=== PATIENT | female | born 1965 | race Caucasian/White ===

== ENCOUNTER → 2016-05-20 | Outpatient (REF) | payer OTHER | LOC: M LAB REF 14:53 | PROVIDERS: ATTEND Physician Assistant Medical | DX: N39.0 Urinary tract infection, site not specified (principal) ==

== ENCOUNTER → 2016-06-03 | Outpatient (REF) | payer OTHER | LOC: M LAB REF 16:59 | PROVIDERS: ATTEND Physician Assistant | DX: N39.0 Urinary tract infection, site not specified (principal) ==

== ENCOUNTER 2018-06-12 05:24 | Inpatient (IN) | payer OTHER ==
[~2018-06-12] VITALS: Ht 170.2 cm; Wt 181.7 kg
[2018-06-12] MEDS ORDERED: methylPREDNISolone INJ 125 MG/2 ML VIAL (J2930) IV ONE (06:45)
[2018-06-12] MEDS ORDERED: IPRATROPIUM 0.5MG/ALBUTEROL 2.5MG INH SOL UD 3ML (DUONEB)(J7620) NEB PRN ×2 (06:45→09:00)
[2018-06-12 07:05] LABS: BASO % 0.7 % (0.0-1.0); EOS % 0.2 % (0.0-3.0); HEMATOCRIT 56.9 % (36.0-47.0); LYMPH # 0.5 10^3/uL (1.5-4.5); LYMPH % 8.9 % (24.0-44.0); MEAN CORPUSCULAR HEMOGLOBIN 23.9 pg (27.0-33.0); MEAN CORPUSCULAR HGB CONC 28.1 g/dl (32.0-36.5); MEAN CORPUSCULAR VOLUME 84.9 fl (80.0-96.0); MONO # 0.3 10^3/uL (0.0-0.8); MONO % 4.8 % (0.0-5.0); NEUTROPHILS # 4.8 10^3/uL (1.8-7.7); NEUTROPHILS % 84.9 % (36.0-66.0); PLATELET COUNT, AUTOMATED 108 10^3/uL (150-450); WHITE BLOOD COUNT 5.6 10^3/uL (4.0-10.0)
[2018-06-12 07:13] LABS: ABG BASE EXCESS -2.2 (-2.0-2.0); ABG HCO3 25.3 MEQ/L (22.0-26.0); ABG O2 SATURATION 90.6 % (95.0-99.0); ABG PARTIAL PRESSURE CO2 53.5 mmHg (35.0-45.0); ABG PARTIAL PRESSURE O2 60.9 mmHg (75.0-100.0); ABG STANDARD HCO3 22.4 MEQ/L (22.0-26.0); ABG pH (ARTERIAL) 7.293 UNITS (7.350-7.450)
[2018-06-12 07:27] LABS: ALBUMIN 2.9 GM/DL (3.2-5.2); ALT/SGPT 11 U/L (12-78); BILIRUBIN,DIRECT 0.1 MG/DL (0.0-0.2); BILIRUBIN,TOTAL 0.4 MG/DL (0.2-1.0); BLOOD UREA NITROGEN 11 MG/DL (7-18); CALCIUM LEVEL 9.3 MG/DL (8.5-10.1); CARBON DIOXIDE LEVEL 26 MEQ/L (21-32); CHLORIDE LEVEL 110 MEQ/L (98-107); CPK CREATINE PHOSPHOKINASE 28 U/L (26-192); CREATININE FOR GFR 0.68 MG/DL (0.55-1.30); GLOMERULAR FILTRATION RATE > 60.0 (>51); GLUCOSE, FASTING 147 MG/DL (70-100); NT-PRO BNP 404 PG/ML (<125); POTASSIUM SERUM 4.4 MEQ/L (3.5-5.1); SODIUM LEVEL 139 MEQ/L (136-145); TOTAL PROTEIN 6.8 GM/DL (6.4-8.2); TROPONIN I < 0.02 NG/ML (< 0.10)
--- NOTE | 2018-06-12 07:40 | REP ---
Clinical: Cough and dyspnea . Comparison: 06/01/2006 . Findings: Cardiomegaly with perihilar opacities and increased interstitial markings suggest chronic changes as well as superimposed pulmonary venous congestion versus multifocal infiltrates. No definite effusion. No pneumothorax. Skeletal structures intact. Impression: Cardiomegaly. Differential diagnosis includes pulmonary edema as well as multifocal infiltrates primarily involving the right perihilar and lower lobe regions. Electronically Signed by Mark Anthony Craig MD 06/12/2018 07:32 A
[2018-06-12 07:57] LABS: INFLUENZA A AMPLIFICATION NEGATIVE (NEGATIVE); INFLUENZA B AMPLIFICATION NEGATIVE (NEGATIVE)
[2018-06-12] MEDS ORDERED: cefTRIAXone SOD 1 GM in D5W MINI-BAG PLUS 50 ML IV ONE (08:00)
[2018-06-12] MEDS ORDERED: AZITHROMYCIN INJ 500 MG, VIAL MATE ADAPTER 1 EACH in D5W 250 ML IV ONE (08:00)
[2018-06-12] MEDS ORDERED: FUROSEMIDE 20 MG/2 ML VIAL (J1940) IV ONE (08:00)
[2018-06-12] MEDS ORDERED: ISOVUE-370 76% 100ML VIAL (Q9967) As Ordered ONE (08:05)
[2018-06-12] MEDS ORDERED: GLUCOSE 4 GM CHEW TABLET PO PRN (09:00)
[2018-06-12] MEDS ORDERED: ONDANSETRON 4MG/2ML VIAL (J2405) IV PRN (09:00)
[2018-06-12] MEDS ORDERED: GLUCAGON FOR INJ 1 MG VIAL (J1610) SC PRN (09:00)
[2018-06-12] MEDS ORDERED: DEXTROSE 50% 50 ML SYRINGE IV PRN (09:00)
--- NOTE | 2018-06-12 09:02 | REP ---
CT ANGIOGRAM CHEST: TECHNIQUE: Axial contrast enhanced images from the thoracic inlet to the upper abdomen using 100 mL Isovue 370 intravenous contrast material with multiplanar reformations. There is streak artifact due to patient body habitus and motion. No definite pulmonary embolism is seen. There is no thoracic aortic aneurysm or dissection. There is mediastinal and hilar adenopathy. Right paratracheal adenopathy is seen with short axis dimension up to 2 cm. There is adenopathy in the AP window with lymph nodes measuring up to 1.5 cm. Right precarinal adenopathy measures 2.3 cm in short axis. An enlarged right infrahilar lymph node measures 2.5 x 3.9 cm. The left infrahilar lymph nodes has a short axis dimension of 1.9 cm. There is mild pericardial effusion and a small right pleural effusion. The heart is mildly enlarged. There are diffuse parenchymal infiltrates which are heavier in the lung bases bilaterally. In the visualized portions of the upper abdomen note is made of a 1.5 cm calculus in the visualized upper left renal collecting system. There are degenerative changes of the spine. IMPRESSION: CHF and pulmonary edema pattern. Mild cardiomegaly. Small pericardial effusion and small right pleural effusion. There is mediastinal and hilar adenopathy. Diffuse bilateral parenchymal infiltrates are heavier in the lung bases bilaterally. No definite pulmonary embolism. Electronically Signed by Jose Pressley MD 06/12/2018 12:55 P
--- NOTE | 2018-06-12 09:29 | ECGEPIP ---
Stationary ECG Study [facility] - ED Test Date: 2018-06-12 Pat Name: JUAN C AUGUST Department: Room: - Gender: F Account Service Representative: : 1965 Requested By: BREANN Jessica Order Number: [id number] Reading MD: Dalia Coy Measurements Intervals [place] Rate: 105 P: 61 MI: 179 QRS: 127 QRSD: 93 T: 34 QT: 316 QTc: 419 Interpretive Statements SINUS TACHYCARDIA PATTERN CONSISTENT WITH PULMONARY DISEASE POSSIBLE RIGHT VENTRICULAR HYPERTROPHY RAD DELAYED R WAVE PROGRESSION NONSPECIFIC ST T WAVE PROGRESSION NO OLD ECG FOR COMPARISON Electronically Signed On 06-12-2018 9:29:07 EDT by Dalia Coy
[2018-06-12] MEDS: IPRATROPIUM 0.5MG/ALBUTEROL 2.5MG INH SOL UD 3ML (DUONEB)(J7620) NEB SCH ×5 (10:54→23:21)
[2018-06-12] MEDS: methylPREDNISolone INJ 125 MG/2 ML VIAL (J2930) IV SCH ×2 (13:34→21:19)
[2018-06-12] MEDS: ENOXAPARIN 40 MG/0.4 ML SYRINGE (J1650) SC SCH (13:35)
[2018-06-12] MEDS: HumaLOG INSULIN (NovoLOG) PER UNIT SC SCH ×3 (13:36→21:00)
[2018-06-12 15:55] LABS: CHOLESTEROL LEVEL 145 MG/DL (<200); HDL CHOLESTEROL 25 MG/DL (>40); LDL CHOLESTEROL 103 MG/DL (<100); NON-HDL-C 120 MG/DL; TRIGLYCERIDES LEVEL 84 MG/DL (<150)
[2018-06-12 16:42] LABS: HEMOGLOBIN A1c 6.1 %
[2018-06-12] MEDS ORDERED: FUROSEMIDE 40 MG/4 ML VIAL (J1940) IV ONE (17:30)
--- NOTE | 2018-06-12 17:35 | HPEPDOC ---
General Date of Admission June 12, 2018 at 08:59 Chief Complaint The patient is a 52-year-old female admitted with a reason for visit of Pneumoni a. History of Present Illness 52-year-old female with no significant past medical history due to not following with a physician for many years presents to the ER with a chief complaint of worsening shortness of breath over the last 1 week. The patient states that she has been having fevers, runny nose, muscle aches, and cough productive of yellowish sputum. The patient does endorse that she has smoked a pack and half of tobacco daily for the last 20+ years. She also notes that she has been having lower extremity edema which has also been getting worse for several months. She states that the legs are more swollen after she drinks an excessive amount of diet Coke. She denies any complaints of chest pain, palpitations, abdominal pain, or any nausea/vomiting/diarrhea. In the ER, chest x-ray and CT angiogram of the chest was consistent with bilateral pneumonia and decompensated congestive heart failure. The patient will be admitted to the hospitalist service for evaluation and management. Home Medications No Active Prescriptions or Reported Meds Allergies Coded Allergies: No Known Allergies (Unverified , 06/12/18) Past Medical History Medical History As noted in HPI. Social History * Smoker: greater than 1 pack/day (for 20+ years), cigarettes Alcohol: Denies Drugs: denies A-FIB/CHADSVASC A-FIB History Current/History of A-Fib/PAF?: No Review of Systems Other systems 10 point review of systems negative unless otherwise specified in HPI. Physical Examination General Exam: Positive: Alert, Cooperative, No Acute Distress, Other (morbidly obese) ENT Exam: Positive: Atraumatic, Mucous membr. moist/pink Chest Exam: Positive: Rales (faint bibasilar crackles noted), Wheezing (expiratory wheezing noted on auscultation), Diminished Heart Exam: Positive: Rate Normal, Normal S1, Normal S2 Abdomen Exam: Positive: Soft; Negative: Tenderness Extremity Exam: Positive: Swelling (2+ pitting edema noted in the lower extremities bilaterally); Negative: Tenderness Psych Exam: Positive: Oriented x 3 Vital Signs Vital Signs Date Time Temp Pulse Resp B/P (MAP) Pulse Ox O2 Delivery O2 Flow Rate FiO2 06/12/18 14:50 97.9 144/76 (98) 06/12/18 14:30 82 16 88 Nasal Cannula 5.0 Laboratory Data Labs 24H Laboratory Tests 2 06/12/18 06:08: Immature Granulocyte % (Auto) 0.5, White Blood Count 5.6, Red Blood Count 6.70H, Hemoglobin 16.0H, Hematocrit 56.9H, Mean Corpuscular Volume 84.9, Mean Corpuscular Hemoglobin 23.9L, Mean Corpuscular Hemoglobin Concent 28.1L, Red Cell Distribution Width 19.7H, Platelet Count 108L, Neutrophils (%) (Auto) 84.9H, Lymphocytes (%) (Auto) 8.9L, Monocytes (%) (Auto) 4.8, Eosinophils (%) (Auto) 0.2, Basophils (%) (Auto) 0.7, Neutrophils # (Auto) 4.8, Lymphocytes # (Auto) 0.5L, Monocytes # (Auto) 0.3, Eosinophils # (Auto) 0.0, Basophils # (Auto) 0.0, Nucleated Red Blood Cells % (auto) 0.0, Anion Gap 3L, Glomerular Filtration Rate > 60.0, Estimated Mean Plasma Glucose 128H, Hemoglobin A1c 6.1, Calcium Level 9.3, Aspartate Amino Transf (AST/SGOT) 8, Alanine Aminotransferase (ALT/SGPT) 11L, Alkaline Phosphatase 144H, Total Bilirubin 0.4, Direct Bilirubin 0.1, Total Creatine Kinase 28, Creatine Kinase MB 1.0, Creatine Kinase MB Relative Index 5.00H, Troponin I < 0.02, VH-Jja-E-Type Natriuretic Peptide 404H, Total Protein 6.8, Albumin 2.9L, Albumin/Globulin Ratio 0.74L, Triglycerides Level 84, Total Cholesterol 145, LDL Cholesterol 103H, Non-HDL Cholesterol (LDL + VLDL) 120, Total HDL Cholesterol 25L, Cholesterol/HDL Ratio 5.800H 06/12/18 06:55: Blood Gas Bicarbonate Standard 22.4, Arterial Blood pH 7.293L, Arterial Blood Partial Pressure CO2 53.5H, Arterial Blood Partial Pressure O2 60.9L, Arterial Blood Total CO2 27.0, Arterial Blood HCO3 25.3, Arterial Blood Base Excess - 2.2L, Arterial Blood Oxygen Saturation 90.6L 06/12/18 07:21: Influenza Type A (RT-PCR) NEGATIVE, Influenza Type B (RT-PCR) NEGATIVE 06/12/18 08:48: Lactic Acid Level 0.9 06/12/18 08:59: 06/12/18 12:40: Bedside Glucose (Misc Panel) 219H CBC/BMP Laboratory Tests 06/12/18 06:08 Red Blood Count 6.70 H, Mean Corpuscular Volume 84.9, Mean Corpuscular Hemoglobin 23.9 L, Mean Corpuscular Hemoglobin Concent 28.1 L, Red Cell Dis tribution Width 19.7 H, Neutrophils (%) (Auto) 84.9 H, Lymphocytes (%) (Auto) 8.9 L, Monocytes (%) (Auto) 4.8, Eosinophils (%) (Auto) 0.2, Basophils (%) (Auto) 0.7, Neutrophils # (Auto) 4.8, Lymphocytes # (Auto) 0.5 L, Monocytes # (Auto) 0.3, Eosinophils # (Auto) 0.0, Basophils # (Auto) 0.0 Microbiology Microbiology 06/12/18 Blood Culture, Received Pending 06/12/18 Blood Culture, Received Pending Plan / VTE VTE Prophylaxis Ordered?: Yes Plan Plan SOB 2/2 Bilateral CAP, Decompensated CHF Chest x-ray and CTA of the chest noted Sputum culture, calcitonin level, and respiratory panel ordered We'll empirically cover the patient with Rocephin and azithromycin IV steroids, serial inhaler therapy ordered--- the patient will need a formal PFT study once her respiratory status is optimized as an outpatient. 2-D echocardiogram ordered Monitor I/O's Fluid restriction Daily weights We will continue to monitor the patient's respiratory status with the aforementioned treatment Hypoxia 2/2 Above We will continue to down titrate the patient's supplemental oxygen as tolerated Morbid obesity We will check a hemoglobin A1c level, lipid panel Patient counseled extensively on lifestyle modification, dietary discretion Complicating medical care DVT prophylaxis Lovenox subcutaneous BIJAL MCINTOSH MD June 12, 2018 17:35
[2018-06-12 19:45] VITALS: O2SAT 95
[2018-06-12 20:00] VITALS: BP 146/81
[2018-06-12 23:59] VITALS: BP 143/67
[2018-06-13] VITALS (17 sets, daily range): BP systolic 128–152; BP diastolic 66–84; O2SAT 88–93
[2018-06-13] MEDS: IPRATROPIUM 0.5MG/ALBUTEROL 2.5MG INH SOL UD 3ML (DUONEB)(J7620) NEB SCH ×5 (03:27→19:42)
[2018-06-13 06:11] LABS: HEMATOCRIT 54.2 % (36.0-47.0); MEAN CORPUSCULAR HEMOGLOBIN 23.4 pg (27.0-33.0); MEAN CORPUSCULAR HGB CONC 27.7 g/dl (32.0-36.5); MEAN CORPUSCULAR VOLUME 84.7 fl (80.0-96.0); PLATELET COUNT, AUTOMATED 116 10^3/uL (150-450); WHITE BLOOD COUNT 6.1 10^3/uL (4.0-10.0)
[2018-06-13] MEDS: methylPREDNISolone INJ 125 MG/2 ML VIAL (J2930) IV SCH ×3 (06:19→21:14)
[2018-06-13 06:42] LABS: BLOOD UREA NITROGEN 13 MG/DL (7-18); CALCIUM LEVEL 9.4 MG/DL (8.5-10.1); CARBON DIOXIDE LEVEL 29 MEQ/L (21-32); CHLORIDE LEVEL 108 MEQ/L (98-107); CREATININE FOR GFR 0.61 MG/DL (0.55-1.30); FREE T4 1.34 NG/DL (0.76-1.46); GLOMERULAR FILTRATION RATE > 60.0 (>51); GLUCOSE, FASTING 192 MG/DL (70-100); MAGNESIUM LEVEL 2.3 MG/DL (1.8-2.4); POTASSIUM SERUM 4.5 MEQ/L (3.5-5.1); SODIUM LEVEL 138 MEQ/L (136-145); THYROID STIMULATING HORMONE 0.334 uIU/ML (0.358-3.740)
[2018-06-13] MEDS: cefTRIAXone SOD 1 GM in D5W MINI-BAG PLUS 50 ML IV SCH (07:37)
[2018-06-13] MEDS: HumaLOG INSULIN (NovoLOG) PER UNIT SC SCH ×4 (07:37→21:00)
[2018-06-13] MEDS: ENOXAPARIN 40 MG/0.4 ML SYRINGE (J1650) SC SCH (09:33)
[2018-06-13] MEDS: FUROSEMIDE 40 MG/4 ML VIAL (J1940) IV SCH ×2 (09:34→17:37)
[2018-06-13] MEDS: AZITHROMYCIN INJ 500 MG, VIAL MATE ADAPTER 1 EACH in D5W 250 ML IV SCH (09:34)
--- NOTE | 2018-06-13 11:39 | IPNPDOC ---
Subjective Date Seen The patient was seen on 06/13/18. Subjective Chief Complaint/HPI Patient seen and examined at bedside this morning. Reports that she is feeling better today as her shortness of breath is improved following diuresis and nebulizer therapy. Objective Physical Examination General Exam: Positive: Alert, Cooperative, No Acute Distress, Other (morbidly obese) ENT Exam: Positive: Atraumatic, Mucous membr. moist/pink Chest Exam: Positive: Rales (faint bibasilar crackles noted), Wheezing (expiratory wheezing noted on auscultation), Diminished Heart Exam: Positive: Rate Normal, Normal S1, Normal S2 Abdomen Exam: Positive: Soft; Negative: Tenderness Extremity Exam: Positive: Swelling (2+ pitting edema noted in the lower extremities bilaterally); Negative: Tenderness Psych Exam: Positive: Oriented x 3 A-FIB/CHADSVASC A-FIB History Current/History of A-Fib/PAF?: No Assessment /Plan Plan/VTE VTE Prophylaxis Ordered?: Yes Plan SOB 2/2 Bilateral CAP, Decompensated CHF Chest x-ray and CTA of the chest with findings suggestive of decompensated CHF/Bilateral infiltrates Sputum culture, procalcitonin level pending, and respiratory panel negative Cont with Rocephin and azithromycin IV steroids, serial inhaler therapy ordered--- the patient will need a formal PFT study once her respiratory status is optimized as an outpatient. 2-D echocardiogram pending Monitor I/O's Fluid restriction Daily weights The patient has a negative fluid balance of 4 L this morning and reports an improvement of her shortness of breath Hypoxia 2/2 Above We will continue to down titrate the patient's supplemental oxygen as tolerated Morbid obesity Hemoglobin A1c level 6.1%, lipid panel noted Patient counseled extensively on lifestyle modification, dietary discretion Complicating medical care DVT prophylaxis Lovenox subcutaneous VS, I&O, 24H, Fishbone Vital Signs/I&O Vital Signs Date Time Temp Pulse Resp B/P (MAP) Pulse Ox O2 Delivery O2 Flow Rate FiO2 06/13/18 08:00 97.5 85 22 132/78 (96) 98 5.0 06/13/18 04:00 Nasal Cannula I&O- Last 24 Hours up to 6 AM 06/13/18 06:00 Intake Total 1000 ml Output Total 3975 ml Balance -2975 ml Laboratory Data 24H LABS Laboratory Tests 2 5/3/19 12:40: Bedside Glucose (Misc Panel) 219H 06/12/18 17:44: Bedside Glucose (Misc Panel) 168H 06/12/18 21:00: Bedside Glucose (Misc Panel) 236H 06/13/18 05:19: Nucleated Red Blood Cells % (auto) 0.0, Anion Gap 1L, Glomerular Filtration Rate > 60.0, Blood Urea Nitrogen 13, Creatinine 0.61, Sodium Level 138, Potassium Level 4.5, Chloride Level 108H, Carbon Dioxide Level 29, Calcium Level 9.4, Magnesium Level 2.3, Thyroid Stimulating Hormone (TSH) 0.334L, Free Thyroxine 1.34 CBC/BMP Laboratory Tests 06/13/18 05:19 Red Blood Count 6.40 H, Mean Corpuscular Volume 84.7, Mean Corpuscular Hemoglobin 23.4 L, Mean Corpuscular Hemoglobin Concent 27.7 L, Red Cell Distribution Width 19.4 H, Calcium Level 9.4 Microbiology Microbiology 06/12/18 Blood Culture - Preliminary, Resulted No growth after 24 hours . All specim... 06/12/18 Blood Culture - Preliminary, Resulted No growth after 24 hours . All specim... 06/12/18 Respiratory Virus Panel (PCR) ([facility]) - Final, Complete BIJAL MCINTOSH MD June 13, 2018 11:39
--- NOTE | 2018-06-13 14:01 | ECHO ---
DATE OF PROCEDURE: 06/12/2018 INDICATION: Congestive heart failure. Height 170 cm, weight 188 kg. DIMENSIONS: IVS 1.2 LV 5.9 LVPW 1.2 LA 5.0 Aorta 2.8 IVC 3.3 Mitral E wave velocity wave velocity 135, A wave 99 E prime septal 6.9 E prime lateral 12.1 FINDINGS: The study is of rather limited technical quality corresponding to patient's body habitus. The patient is in sinus rhythm. Left ventricle is mildly dilated. There is mild left ventricular hypertrophy. Overall LV systolic function appears preserved, I estimate ejection fraction around 60%. The right ventricle was poorly seen but does not appear grossly enlarged. Left atrium is severely enlarged. Right atrium was poorly visualized. Aortic valve is mildly sclerotic but visualization was poor and I cannot comment much on its structure. Same applies for mitral valve. There are minimal mitral annular calcifications, but I cannot comment on mobility of mitral leaflets. Tricuspid valve appears normal. Pulmonic valve was not well seen. No pericardial effusion but pericardial fat pad were noted. Inferior vena cava is markedly dilated and there is no appreciable collapse with respiration indicative of high central venous pressure. Aortic root, aortic arch and abdominal aorta appear grossly normal. Doppler interrogation of aortic valve reveals no insufficiency and trivial stenosis with mean gradient 9 mmHg. There is trace mitral insufficiency and mild mitral stenosis, mean gradient across the mitral valve was 5 mmHg. There is mild tricuspid insufficiency. Calculated pulmonary artery pressure is at minimum around 40 mmHg corresponding to moderate pulmonary hypertension. Evaluation of diastolic function is somewhat perplexing and difficult to interpret due to underlying mild mitral stenosis. There is normal mitral inflow pattern and tissue Doppler velocities of lateral annulus are very high, so I assume that overall there is relatively preserved LV diastolic function. CONCLUSIONS: 1. Study is of limited technical quality corresponding to patient's body habitus. 2. Mildly dilated left ventricle with mild left ventricular hypertrophy and grossly preserved LV systolic function. Relatively preserved diastolic function. 3. Mild mitral stenosis. 4. Mild aortic stenosis. 5. Very high central venous pressure. 6. Suggestive of at least moderate pulmonary hypertension. COMMENTS: SBE prophylaxis is not recommended.
[2018-06-14] VITALS (15 sets, daily range): BP systolic 130–174; BP diastolic 62–77; O2SAT 87–97
[2018-06-14] MEDS: ACETAMINOPHEN TAB 650MG DOSE (2X325MG) PO PRN (01:07)
[2018-06-14 05:23] LABS: HEMATOCRIT 55.6 % (36.0-47.0); HEMOGLOBIN 15.3 g/dl (12.0-15.5); MEAN CORPUSCULAR HEMOGLOBIN 23.7 pg (27.0-33.0); MEAN CORPUSCULAR HGB CONC 27.5 g/dl (32.0-36.5); MEAN CORPUSCULAR VOLUME 86.1 fl (80.0-96.0); PLATELET COUNT, AUTOMATED 108 10^3/uL (150-450); RED BLOOD COUNT 6.46 10^6/uL (4.00-5.40); WHITE BLOOD COUNT 7.1 10^3/uL (4.0-10.0)
[2018-06-14] MEDS: methylPREDNISolone INJ 125 MG/2 ML VIAL (J2930) IV SCH (05:44)
[2018-06-14 05:48] LABS: BLOOD UREA NITROGEN 21 MG/DL (7-18); CALCIUM LEVEL 9.8 MG/DL (8.5-10.1); CARBON DIOXIDE LEVEL 33 MEQ/L (21-32); CHLORIDE LEVEL 105 MEQ/L (98-107); CREATININE FOR GFR 0.69 MG/DL (0.55-1.30); GLOMERULAR FILTRATION RATE > 60.0 (>51); GLUCOSE, FASTING 153 MG/DL (70-100); POTASSIUM SERUM 4.5 MEQ/L (3.5-5.1); SODIUM LEVEL 139 MEQ/L (136-145)
[2018-06-14] MEDS: HumaLOG INSULIN (NovoLOG) PER UNIT SC SCH ×4 (08:07→20:05)
[2018-06-14] MEDS: cefTRIAXone SOD 1 GM in D5W MINI-BAG PLUS 50 ML IV SCH (08:07)
[2018-06-14] MEDS: IPRATROPIUM 0.5MG/ALBUTEROL 2.5MG INH SOL UD 3ML (DUONEB)(J7620) NEB SCH ×7 (08:30→23:30)
[2018-06-14] MEDS: AZITHROMYCIN INJ 500 MG, VIAL MATE ADAPTER 1 EACH in D5W 250 ML IV SCH (08:52)
[2018-06-14] MEDS: ENOXAPARIN 40 MG/0.4 ML SYRINGE (J1650) SC SCH (08:53)
[2018-06-14] MEDS: FUROSEMIDE 40 MG TAB PO SCH (08:53)
--- NOTE | 2018-06-14 10:57 | IPNPDOC ---
Subjective Date Seen The patient was seen on 06/14/18. Subjective Chief Complaint/HPI Patient seen and examined at bedside. Reports that her breathing is significantly improving. She does however report continued shortness of breath when walking back and forth to the bathroom and when showering yesterday morning. She tells me that she is interested in a dietary consultation to help her make better food choices. Otherwise denies any acute complaints. Objective Physical Examination General Exam: Positive: Alert, Cooperative, No Acute Distress, Other (morbidly obese) ENT Exam: Positive: Atraumatic, Mucous membr. moist/pink Chest Exam: Positive: Wheezing (expiratory wheezing noted on auscultation), Diminished Heart Exam: Positive: Rate Normal, Normal S1, Normal S2 Abdomen Exam: Positive: Soft; Negative: Tenderness Extremity Exam: Positive: Swelling (2+ pitting edema noted in the lower extremities bilaterally); Negative: Tenderness Psych Exam: Positive: Oriented x 3 A-FIB/CHADSVASC A-FIB History Current/History of A-Fib/PAF?: No Assessment /Plan Plan/VTE VTE Prophylaxis Ordered?: Yes Plan SOB 2/2 Bilateral CAP, Decompensated CHF Chest x-ray and CTA of the chest with findings suggestive of decompensated CHF/Bilateral infiltrates Procalcitonin level noted to be 0.22, and respiratory panel negative Cont with Rocephin and azithromycin IV steroids, serial inhaler therapy ordered--- the patient will need a formal PFT study once her respiratory status is optimized as an outpatient. 2-D echocardiogram notable for preserved LV ejection fraction and diastolic function. However was noted to have very high central venous pressure and at least moderate pulmonary hypertension. Monitor I/O's--- the patient has a net negative fluid balance of over 8 L since admission Fluid restriction Daily weights Respiratory/volume status continues to improve. Physical therapy ordered for further functional optimization Hypoxia 2/2 Above We will continue to down titrate the patient's supplemental oxygen as tolerated Morbid obesity Hemoglobin A1c level 6.1%, lipid panel noted Patient counseled extensively on lifestyle modification, dietary discretion Dietary consult ordered Complicating medical care DVT prophylaxis Lovenox subcutaneous VS, I&O, 24H, Fishbone Vital Signs/I&O Vital Signs Date Time Temp Pulse Resp B/P (MAP) Pulse Ox O2 Delivery O2 Flow Rate FiO2 06/14/18 10:00 87 Nasal Cannula 4.0 06/14/18 08:00 96.6 62 20 130/75 (93) I&O- Last 24 Hours up to 6 AM 06/14/18 05:59 Intake Total 1290 ml Output Total 5800 ml Balance -4510 ml Laboratory Data 24H LABS Laboratory Tests 2 06/13/18 11:43: Bedside Glucose (Misc Panel) 214H 06/13/18 17:23: Bedside Glucose (Misc Panel) 188H 06/13/18 21:03: Bedside Glucose (Misc Panel) 199H 06/14/18 04:37: Nucleated Red Blood Cells % (auto) 0.0, Anion Gap 1L, Glomerular Filtration Rate > 60.0, Blood Urea Nitrogen 21#H, Creatinine 0.69, Sodium Level 139, Potassium Level 4.5, Chloride Level 105, Carbon Dioxide Level 33H, Calcium Level 9.8 CBC/BMP Laboratory Tests 06/14/18 04:37 Red Blood Count 6.46 H, Mean Corpuscular Volume 86.1, Mean Corpuscular Hemoglobin 23.7 L, Mean Corpuscular Hemoglobin Concent 27.5 L, Red Cell Distribution Width 19.0 H, Calcium Level 9.8 Microbiology Microbiology 06/12/18 Blood Culture - Preliminary, Resulted No Growth after 48 hours. All Specime... 06/12/18 Blood Culture - Preliminary, Resulted No Growth after 48 hours. All Specime... 06/12/18 Respiratory Virus Panel (PCR) ([facility]) - Final, Complete BIJAL MCINTOSH MD June 14, 2018 10:57
[2018-06-14] MEDS ORDERED: SENOKOT S TAB PO PRN (11:00)
[2018-06-14] MEDS ORDERED: BISACODYL 10 MG SUPP PR PRN (11:00)
[2018-06-14] MEDS: methylPREDNISolone INJ 40 MG/1 ML VIAL (J2920) IV SCH (18:33)
[2018-06-15] VITALS (18 sets, daily range): BP systolic 108–165; BP diastolic 64–88; O2SAT 88–94
[2018-06-15] MEDS: IPRATROPIUM 0.5MG/ALBUTEROL 2.5MG INH SOL UD 3ML (DUONEB)(J7620) NEB SCH ×5 (03:16→21:24)
[2018-06-15 05:08] LABS: HEMATOCRIT 55.3 % (36.0-47.0); HEMOGLOBIN 15.1 g/dl (12.0-15.5); MEAN CORPUSCULAR HEMOGLOBIN 23.7 pg (27.0-33.0); MEAN CORPUSCULAR HGB CONC 27.3 g/dl (32.0-36.5); MEAN CORPUSCULAR VOLUME 86.7 fl (80.0-96.0); RED BLOOD COUNT 6.38 10^6/uL (4.00-5.40); WHITE BLOOD COUNT 6.2 10^3/uL (4.0-10.0)
[2018-06-15 05:21] LABS: BLOOD UREA NITROGEN 20 MG/DL (7-18); CALCIUM LEVEL 9.4 MG/DL (8.5-10.1); CARBON DIOXIDE LEVEL 33 MEQ/L (21-32); CHLORIDE LEVEL 107 MEQ/L (98-107); CREATININE FOR GFR 0.64 MG/DL (0.55-1.30); GLOMERULAR FILTRATION RATE > 60.0 (>51); GLUCOSE, FASTING 125 MG/DL (70-100); POTASSIUM SERUM 4.6 MEQ/L (3.5-5.1); SODIUM LEVEL 139 MEQ/L (136-145)
[2018-06-15] MEDS: methylPREDNISolone INJ 40 MG/1 ML VIAL (J2920) IV SCH (05:23)
[2018-06-15 05:53] LABS: PLATELET COUNT, AUTOMATED 99 10^3/uL (150-450)
[2018-06-15] MEDS: cefTRIAXone SOD 1 GM in D5W MINI-BAG PLUS 50 ML IV SCH (08:00)
[2018-06-15] MEDS: ENOXAPARIN 40 MG/0.4 ML SYRINGE (J1650) SC SCH (08:12)
[2018-06-15] MEDS: HumaLOG INSULIN (NovoLOG) PER UNIT SC SCH ×4 (08:12→21:00)
[2018-06-15] MEDS: AZITHROMYCIN INJ 500 MG, VIAL MATE ADAPTER 1 EACH in D5W 250 ML IV SCH (08:13)
[2018-06-15] MEDS: FUROSEMIDE 40 MG TAB PO SCH (08:13)
[2018-06-15] MEDS ORDERED: SLF 3 ML SYR IV PRN (08:45)
--- NOTE | 2018-06-15 10:06 | IPNPDOC ---
Subjective Date Seen The patient was seen on 06/15/18. Subjective Chief Complaint/HPI Patient seen and examined at the bedside. Reports that her respiratory status is continuing to improve. She is scheduled to work with physical therapy today. Objective Physical Examination General Exam: Positive: Alert, Cooperative, No Acute Distress, Other (morbidly obese) ENT Exam: Positive: Atraumatic, Mucous membr. moist/pink Chest Exam: Positive: Diminished Heart Exam: Positive: Rate Normal, Normal S1, Normal S2 Abdomen Exam: Positive: Soft; Negative: Tenderness Extremity Exam: Positive: Swelling (2+ pitting edema noted in the lower extremities bilaterally); Negative: Tenderness Psych Exam: Positive: Oriented x 3 A-FIB/CHADSVASC A-FIB History Current/History of A-Fib/PAF?: No Assessment /Plan Plan/VTE VTE Prophylaxis Ordered?: Yes Plan SOB 2/2 Bilateral CAP, Decompensated CHF Chest x-ray and CTA of the chest with findings suggestive of decompensated CHF/Bilateral infiltrates Procalcitonin level noted to be 0.22, and respiratory panel negative IV Rocephin and azithromycin transitioned to PO Cefdinir IV steroids transitioned to PO Prednisone, serial inhaler therapy ordered--- the patient will need a formal PFT study once her respiratory status is optimized as an outpatient. 2-D echocardiogram notable for preserved LV ejection fraction and diastolic function. However was noted to have very high central venous pressure and at least moderate pulmonary hypertension. Monitor I/O's--- the patient has a net negative fluid balance of close to 10 L since admission, and she has lost ~4kg's Fluid restriction Daily weights Respiratory/volume status continues to improve. Physical therapy ordered for further functional optimization Hypoxia 2/2 Above Patient down to 2-3L via NC this morning (5L on admission) We will continue to down titrate the patient's supplemental oxygen as tolerated Morbid obesity Hemoglobin A1c level 6.1%, lipid panel noted Patient counseled extensively on lifestyle modification, dietary discretion Dietary consult ordered Complicating medical care DVT prophylaxis Lovenox subcutaneous VS, I&O, 24H, Fishbone Vital Signs/I&O Vital Signs Date Time Temp Pulse Resp B/P (MAP) Pulse Ox O2 Delivery O2 Flow Rate FiO2 06/15/18 06:58 97.5 69 18 158/84 (108) 90 2.0 06/15/18 00:00 Nasal Cannula I&O- Last 24 Hours up to 6 AM 06/15/18 06:00 Intake Total 1435 ml Output Total 4050 ml Balance -2615 ml Laboratory Data 24H LABS Laboratory Tests 2 06/14/18 11:36: Bedside Glucose (Misc Panel) 112H 06/14/18 17:55: Bedside Glucose (Misc Panel) 93 06/14/18 19:56: Bedside Glucose (Misc Panel) 174H 06/15/18 04:29: Nucleated Red Blood Cells % (auto) 0.0, Immature Platelet Fraction 7.4, Anion Gap -1L, Glomerular Filtration Rate > 60.0, Blood Urea Nitrogen 20H, Creatinine 0.64, Sodium Level 139, Potassium Level 4.6, Chloride Level 107, Carbon Dioxide Level 33H, Calcium Level 9.4 06/15/18 06:45: Bedside Glucose (Misc Panel) 121H CBC/BMP Laboratory Tests 06/15/18 04:29 Red Blood Count 6.38 H, Mean Corpuscular Volume 86.7, Mean Corpuscular Hemoglobin 23.7 L, Mean Corpuscular Hemoglobin Concent 27.3 L, Red Cell Distribution Width 19.0 H, Calcium Level 9.4 Microbiology Microbiology 06/12/18 Blood Culture - Preliminary, Resulted No Growth after 72 hours. All specime... 06/12/18 Blood Culture - Preliminary, Resulted No Growth after 72 hours. All specime... 06/12/18 Respiratory Virus Panel (PCR) ([facility]) - Final, Complete BIJAL MCINTOSH MD June 15, 2018 10:06
[2018-06-15] MEDS: SLF 3 ML SYR IV SCH ×2 (13:29→20:26)
[2018-06-15] MEDS: CEFDINIR 300 MG CAP (OMNICEF) PO SCH (21:11)
[2018-06-16] VITALS (15 sets, daily range): BP systolic 132–146; BP diastolic 64–78; O2SAT 85–92
[2018-06-16] MEDS: IPRATROPIUM 0.5MG/ALBUTEROL 2.5MG INH SOL UD 3ML (DUONEB)(J7620) NEB SCH ×7 (03:17→23:31)
[2018-06-16 04:02] LABS: HEMATOCRIT 54.4 % (36.0-47.0); HEMOGLOBIN 15.1 g/dl (12.0-15.5); MEAN CORPUSCULAR HEMOGLOBIN 24.1 pg (27.0-33.0); MEAN CORPUSCULAR HGB CONC 27.8 g/dl (32.0-36.5); MEAN CORPUSCULAR VOLUME 86.8 fl (80.0-96.0); RED BLOOD COUNT 6.27 10^6/uL (4.00-5.40); WHITE BLOOD COUNT 6.3 10^3/uL (4.0-10.0)
[2018-06-16 04:03] LABS: PLATELET COUNT, AUTOMATED 89 10^3/uL (150-450)
[2018-06-16 04:32] LABS: BLOOD UREA NITROGEN 20 MG/DL (7-18); CALCIUM LEVEL 9.4 MG/DL (8.5-10.1); CARBON DIOXIDE LEVEL 32 MEQ/L (21-32); CHLORIDE LEVEL 107 MEQ/L (98-107); CREATININE FOR GFR 0.62 MG/DL (0.55-1.30); GLOMERULAR FILTRATION RATE > 60.0 (>51); GLUCOSE, FASTING 90 MG/DL (70-100); POTASSIUM SERUM 4.4 MEQ/L (3.5-5.1); SODIUM LEVEL 141 MEQ/L (136-145)
[2018-06-16] MEDS: SLF 3 ML SYR IV SCH ×3 (04:39→20:16)
[2018-06-16] MEDS: HumaLOG INSULIN (NovoLOG) PER UNIT SC SCH ×4 (07:23→20:08)
[2018-06-16] MEDS: CEFDINIR 300 MG CAP (OMNICEF) PO SCH ×2 (08:44→20:16)
[2018-06-16] MEDS: ENOXAPARIN 40 MG/0.4 ML SYRINGE (J1650) SC SCH (08:44)
[2018-06-16] MEDS: FUROSEMIDE 40 MG TAB PO SCH (08:44)
[2018-06-16] MEDS ORDERED: predniSONE 20 MG TAB PO SCH (09:00)
--- NOTE | 2018-06-16 11:11 | IPNPDOC ---
Subjective Date Seen The patient was seen on 06/16/18. Subjective Chief Complaint/HPI Still complaining of shortness of breath and easy fatigability General: Denies: ROS Unobtainable, Chills, Night Sweats, Fatigue, Malaise, Normal Appetite, Other Symptoms Constitutional: Denies: Chills, Fever, Malaise, Night Sweats, Weakness, Fatigue, Weight Loss, Lethargy, Other Eyes: Denies: Pain, Vision change, Conjunctivae inflammation, Eyelid inflammation, Redness, Other ENT: Denies: Head Aches, Ear Pain, Dysphagia, Sinus Congestion, Post Nasal Drip, Sore Throat, Epistaxis, Other Symptoms Skin: Denies: Rash, Lesions, Jaundice, Bruising, Itching, Dry, Breakdown, Nail Changes, Other Pulmonary: Reports: Dyspnea, Cough Cardiovascular: Denies: Chest Pain, Palpitations, Orthopnea, Paroxysmal Noc. Dyspnea, Edema, Lt Headedness, Other Symptoms Gastrointestinal: Denies: Nausea, Vomiting, Abdominal Pain, Diarrhea, Constipation, Melena, Hematochezia, Other Symptoms Genitourinary: Denies: Dysuria, Frequency, Incontinence, Hematuria, Retention, Other Symptoms Hematologic: Denies: Bruising, Bleeding Excessively, Petecchia, Purpura, Enlarged Lymph Nodes, Other Hematologic Endocrine: Denies: Polydipsia, Polyphagia, Polyuria, Heat Intolerance, Cold Intolerance, Other Endocrine Sx Musculoskeletal: Denies: Neck Pain, Back Pain, Shoulder Pain, Arm Pain, Hand Pain, Leg Pain, Foot Pain, Joint Pain, Muscle Pain, Spasms, Other Symptoms Neurological: Denies: Weakness, Numbness, Incoordination, Change in speech, Confusion, Seizures, Other Symptoms Psych: Denies: Mood Normal, Anxiety, Depression, Memory Issues, Thoughts of Self Harm, Anger, Thoughts of Harming Other, Other Psych Objective Physical Examination General Exam: Positive: Alert, Cooperative, No Acute Distress, Other (morbidly obese) ENT Exam: Positive: Atraumatic, Mucous membr. moist/pink Chest Exam: Positive: Wheezing, Diminished Heart Exam: Positive: Rate Normal, Normal S1, Normal S2 Abdomen Exam: Positive: Soft; Negative: Tenderness Extremity Exam: Positive: Swelling (2+ pitting edema noted in the lower e xtremities bilaterally); Negative: Tenderness Psych Exam: Positive: Oriented x 3 A-FIB/CHADSVASC A-FIB History Current/History of A-Fib/PAF?: No Assessment /Plan Problems (1) Pneumonia Status: Acute Problem Text: SOB 2/2 Bilateral CAP, Decompensated CHF Chest x-ray and CTA of the chest with findings suggestive of decompensated CHF/Bilateral infiltrates Procalcitonin level noted to be 0.22, and respiratory panel negative IV Rocephin and azithromycin transitioned to PO Cefdinir IV steroids transitioned to PO Prednisone, serial inhaler therapy ordered--- the patient will need a formal PFT study once her respiratory status is optimized as an outpatient. 2-D echocardiogram notable for preserved LV ejection fraction and diastolic function. However was noted to have very high central venous pressure and at least moderate pulmonary hypertension. Monitor I/O's--- the patient has a net negative fluid balance of close to 10 L since admission, and she has lost ~4kg's Fluid restriction Daily weights Respiratory/volume status continues to improve. Physical therapy ordered for further functional optimization Hypoxia 2/2 Above Patient down to 2-3L via NC this morning (5L on admission) We will continue to down titrate the patient's supplemental oxygen as tolerated (2) Acute respiratory failure Status: Acute Problem Text: Resolving. Further, as above (3) Congestive heart failure Status: Acute Problem Text: Resolving. Further, as above Plan/VTE VTE Prophylaxis Ordered?: Yes VS, I&O, 24H, [facility] Vital Signs/I&O Vital Signs Date Time Temp Pulse Resp B/P (MAP) Pulse Ox O2 Delivery O2 Flow Rate FiO2 06/16/18 08:45 4.0 06/16/18 08:00 97.9 66 18 145/78 (100) 92 06/15/18 18:00 Nasal Cannula I&O- Last 24 Hours up to 6 AM 06/16/18 06:00 Intake Total 840 ml Output Total 4050 ml Balance -3210 ml Laboratory Data 24H LABS Laboratory Tests 2 06/15/18 11:37: Bedside Glucose (Misc Panel) 142H 06/15/18 18:04: Bedside Glucose (Misc Panel) 110H 06/15/18 21:10: Bedside Glucose (Misc Panel) 144H 06/16/18 03:40: Nucleated Red Blood Cells % (auto) 0.0, Anion Gap 2L, Glomerular Filtration Rate > 60.0, Blood Urea Nitrogen 20H, Creatinine 0.62, Sodium Level 141, Potassium Level 4.4, Chloride Level 107, Carbon Dioxide Level 32, Calcium Level 9.4 CBC/BMP Laboratory Tests 06/16/18 03:40 Red Blood Count 6.27 H, Mean Corpuscular Volume 86.8, Mean Corpuscular Hemoglobin 24.1 L, Mean Corpuscular Hemoglobin Concent 27.8 L, Red Cell Distribution Width 18.7 H, Calcium Level 9.4 Microbiology Microbiology 06/12/18 Blood Culture - Preliminary, Resulted No Growth after 72 hours. All specime... 06/12/18 Blood Culture - Preliminary, Resulted No Growth after 72 hours. All specime... 06/12/18 Respiratory Virus Panel (PCR) ([facility]) - Final, Complete YONIS KNIGHT MD June 16, 2018 11:11
[2018-06-16] MEDS: methylPREDNISolone INJ 125 MG/2 ML VIAL (J2930) IV SCH (20:16)
[2018-06-17] VITALS (15 sets, daily range): BP systolic 122–158; BP diastolic 52–78; O2SAT 87–93
[2018-06-17] MEDS: IPRATROPIUM 0.5MG/ALBUTEROL 2.5MG INH SOL UD 3ML (DUONEB)(J7620) NEB SCH ×6 (04:16→23:09)
[2018-06-17] MEDS: SLF 3 ML SYR IV SCH ×3 (05:04→20:06)
[2018-06-17 05:53] LABS: HEMATOCRIT 56.9 % (36.0-47.0); HEMOGLOBIN 15.7 g/dl (12.0-15.5); MEAN CORPUSCULAR HEMOGLOBIN 23.5 pg (27.0-33.0); MEAN CORPUSCULAR HGB CONC 27.6 g/dl (32.0-36.5); MEAN CORPUSCULAR VOLUME 85.1 fl (80.0-96.0); RED BLOOD COUNT 6.69 10^6/uL (4.00-5.40); WHITE BLOOD COUNT 6.9 10^3/uL (4.0-10.0)
[2018-06-17 06:05] LABS: PLATELET COUNT, AUTOMATED 95 10^3/uL (150-450)
[2018-06-17 06:10] LABS: BLOOD UREA NITROGEN 18 MG/DL (7-18); CREATININE FOR GFR 0.61 MG/DL (0.55-1.30); GLUCOSE, FASTING 158 MG/DL (70-100)
[2018-06-17 06:11] LABS: CALCIUM LEVEL 9.2 MG/DL (8.5-10.1); CARBON DIOXIDE LEVEL 30 MEQ/L (21-32); CHLORIDE LEVEL 107 MEQ/L (98-107); GLOMERULAR FILTRATION RATE > 60.0 (>51); POTASSIUM SERUM 4.9 MEQ/L (3.5-5.1); SODIUM LEVEL 138 MEQ/L (136-145)
[2018-06-17] MEDS: methylPREDNISolone INJ 125 MG/2 ML VIAL (J2930) IV SCH ×2 (08:10→20:06)
[2018-06-17] MEDS: ENOXAPARIN 40 MG/0.4 ML SYRINGE (J1650) SC SCH (08:10)
[2018-06-17] MEDS: CEFDINIR 300 MG CAP (OMNICEF) PO SCH ×2 (08:10→20:06)
[2018-06-17] MEDS: HumaLOG INSULIN (NovoLOG) PER UNIT SC SCH ×4 (08:10→20:00)
[2018-06-17] MEDS: FUROSEMIDE 40 MG TAB PO SCH (08:11)
--- NOTE | 2018-06-17 11:32 | IPNPDOC ---
Subjective Date Seen The patient was seen on 06/17/18. Subjective Chief Complaint/HPI Patient feeling much better better oxygenation on oxygen between 2 and 3 L General: Denies: ROS Unobtainable, Chills, Night Sweats, Fatigue, Malaise, Normal Appetite, Other Symptoms Constitutional: Denies: Chills, Fever, Malaise, Night Sweats, Weakness, Fatigue, Weight Loss, Lethargy, Other Eyes: Denies: Pain, Vision change, Conjunctivae inflammation, Eyelid inflammation, Redness, Other ENT: Denies: Head Aches, Ear Pain, Dysphagia, Sinus Congestion, Post Nasal Drip, Sore Throat, Epistaxis, Other Symptoms Skin: Denies: Rash, Lesions, Jaundice, Bruising, Itching, Dry, Breakdown, Nail Changes, Other Pulmonary: Reports: Dyspnea, Cough Cardiovascular: Denies: Chest Pain, Palpitations, Orthopnea, Paroxysmal Noc. Dyspnea, Edema, Lt Headedness, Other Symptoms Gastrointestinal: Denies: Nausea, Vomiting, Abdominal Pain, Diarrhea, Constipation, Melena, Hematochezia, Other Symptoms Genitourinary: Denies: Dysuria, Frequency, Incontinence, Hematuria, Retention, Other Symptoms Hematologic: Denies: Bruising, Bleeding Excessively, Petecchia, Purpura, Enlarged Lymph Nodes, Other Hematologic Endocrine: Denies: Polydipsia, Polyphagia, Polyuria, Heat Intolerance, Cold Intolerance, Other Endocrine Sx Musculoskeletal: Denies: Neck Pain, Back Pain, Shoulder Pain, Arm Pain, Hand Pain, Leg Pain, Foot Pain, Joint Pain, Muscle Pain, Spasms, Other Symptoms Neurological: Denies: Weakness, Numbness, Incoordination, Change in speech, Confusion, Seizures, Other Symptoms Psych: Denies: Mood Normal, Anxiety, Depression, Memory Issues, Thoughts of Self Harm, Anger, Thoughts of Harming Other, Other Psych Objective Physical Examination General Exam: Positive: Alert, Cooperative, No Acute Distress, Other (morbidly obese) ENT Exam: Positive: Atraumatic, Mucous membr. moist/pink Chest Exam: Positive: Wheezing, Diminished Heart Exam: Positive: Rate Normal, Normal S1, Normal S2 Abdomen Exam: Positive: Soft; Negative: Tenderness Extremity Exam: Positive: Swelling (2+ pitting edema noted in the lower extremities bilaterally); Negative: Tenderness Psych Exam: Positive: Oriented x 3 A-FIB/CHADSVASC A-FIB History Current/History of A-Fib/PAF?: No Assessment /Plan Problems (1) Pneumonia Status: Acute Problem Text: SOB 2/2 Bilateral CAP, Decompensated CHF Chest x-ray and CTA of the chest with findings suggestive of decompensated CHF /Bilateral infiltrates Procalcitonin level noted to be 0.22, and respiratory panel negative IV Rocephin and azithromycin transitioned to PO Cefdinir IV steroids transitioned to PO Prednisone, serial inhaler therapy ordered--- the patient will need a formal PFT study once her respiratory status is optimized as an outpatient. 2-D echocardiogram notable for preserved LV ejection fraction and diastolic function. However was noted to have very high central venous pressure and at least moderate pulmonary hypertension. Monitor I/O's--- the patient has a net negative fluid balance of close to 10 L since admission, and she has lost ~4kg's Fluid restriction Daily weights Respiratory/volume status continues to improve. Physical therapy ordered for further functional optimization Hypoxia 2/2 Above Patient down to 2-3L via NC this morning (5L on admission) We will continue to down titrate the patient's supplemental oxygen as tolerated Possible DC in a.m. (2) Acute respiratory failure Status: Acute Problem Text: Resolving. Further, as above (3) Congestive heart failure Status: Acute Problem Text: Resolving. Further, as above Plan/VTE VTE Prophylaxis Ordered?: Yes VS, I&O, 24H, [facility] Vital Signs/I&O Vital Signs Date Time Temp Pulse Resp B/P (MAP) Pulse Ox O2 Delivery O2 Flow Rate FiO2 06/17/18 08:00 96.2 60 18 132/64 (86) 93 3.0 06/16/18 18:00 Nasal Cannula I&O- Last 24 Hours up to 6 AM 06/17/18 06:00 Intake Total 600 ml Output Total 6200 ml Balance -5600 ml Laboratory Data 24H LABS Laboratory Tests 2 06/16/18 12:29: Bedside Glucose (Misc Panel) 123H 06/16/18 17:44: Bedside Glucose (Misc Panel) 196H 06/16/18 19:46: Bedside Glucose (Misc Panel) 164H 06/17/18 05:31: Nucleated Red Blood Cells % (auto) 0.0, Immature Platelet Fraction 8.4, Anion Gap 1L, Glomerular Filtration Rate > 60.0, Blood Urea Nitrogen 18, Creatinine 0.61, Sodium Level 138, Potassium Level 4.9, Chloride Level 107, Carbon Dioxide Level 30, Calcium Level 9.2 CBC/BMP Laboratory Tests 06/17/18 05:31 Red Blood Count 6.69 H, Mean Corpuscular Volume 85.1, Mean Corpuscular Hemoglobin 23.5 L, Mean Corpuscular Hemoglobin Concent 27.6 L, Red Cell Distribution Width 18.4 H, Calcium Level 9.2 Microbiology Microbiology 06/12/18 Blood Culture - Final, Complete NO GROWTH AFTER 5 DAYS 06/12/18 Blood Culture - Final, Complete NO GROWTH AFTER 5 DAYS 06/12/18 Respiratory Virus Panel (PCR) ([facility]) - Final, Complete YONIS KNIGHT MD June 17, 2018 11:32
[2018-06-18] MEDS: ACETAMINOPHEN TAB 650MG DOSE (2X325MG) PO PRN (03:59)
[2018-06-18 04:00] VITALS: BP 156/81
[2018-06-18] MEDS: IPRATROPIUM 0.5MG/ALBUTEROL 2.5MG INH SOL UD 3ML (DUONEB)(J7620) NEB SCH ×3 (04:38→11:06)
[2018-06-18 05:06] LABS: HEMATOCRIT 56.9 % (36.0-47.0); HEMOGLOBIN 16.1 g/dl (12.0-15.5); MEAN CORPUSCULAR HGB CONC 28.3 g/dl (32.0-36.5); MEAN CORPUSCULAR VOLUME 84.8 fl (80.0-96.0); PLATELET COUNT, AUTOMATED 100 10^3/uL (150-450); RED BLOOD COUNT 6.71 10^6/uL (4.00-5.40); WHITE BLOOD COUNT 7.1 10^3/uL (4.0-10.0)
[2018-06-18] MEDS: SLF 3 ML SYR IV SCH ×2 (05:16→14:00)
[2018-06-18 05:28] LABS: BLOOD UREA NITROGEN 19 MG/DL (7-18); CALCIUM LEVEL 9.7 MG/DL (8.5-10.1); CARBON DIOXIDE LEVEL 27 MEQ/L (21-32); CHLORIDE LEVEL 105 MEQ/L (98-107); CREATININE FOR GFR 0.55 MG/DL (0.55-1.30); GLOMERULAR FILTRATION RATE > 60.0 (>51); GLUCOSE, FASTING 156 MG/DL (70-100); POTASSIUM SERUM 4.7 MEQ/L (3.5-5.1); SODIUM LEVEL 136 MEQ/L (136-145)
[2018-06-18 07:00] VITALS: O2SAT 96
[2018-06-18 08:00] VITALS: BP 145/85; O2SAT 95
[2018-06-18] MEDS: HumaLOG INSULIN (NovoLOG) PER UNIT SC SCH ×2 (08:39→12:22)
[2018-06-18] MEDS: FUROSEMIDE 40 MG TAB PO SCH (08:39)
[2018-06-18] MEDS: ENOXAPARIN 40 MG/0.4 ML SYRINGE (J1650) SC SCH (08:40)
[2018-06-18] MEDS: CEFDINIR 300 MG CAP (OMNICEF) PO SCH (08:40)
[2018-06-18] MEDS: methylPREDNISolone INJ 125 MG/2 ML VIAL (J2930) IV SCH (08:41)
[2018-06-18 09:00] VITALS: O2SAT 90
[2018-06-18 10:00] VITALS: O2SAT 94
[2018-06-18] MEDS ORDERED: COMBAER6 INH (10:28)
[2018-06-18] MEDS ORDERED: FURO40TA2 PO (10:28)
[2018-06-18] MEDS ORDERED: ACET1TAB55 PO (10:28)
[2018-06-18] MEDS ORDERED: CEFD300CAP PO (10:28)
[2018-06-18] MEDS ORDERED: PRED20TA PO (10:28)
[2018-06-18] MEDS ORDERED: SENN-52 PO (10:28)
[2018-06-18 12:00] VITALS: BP 144/75
--- NOTE | 2018-06-18 12:14 | DS.PDOC ---
Discharge Summary General Date of Admission June 12, 2018 at 08:59 Date of Discharge 06/18/18 Attending Physician: YONIS KNIGHT MD Discharge Summary PROCEDURES PERFORMED DURING STAY: None. ADMITTING DIAGNOSES: 1. Pneumonia. DISCHARGE DIAGNOSES: 1. Pneumonia, COPD, hypoxia. COMPLICATIONS/CHIEF COMPLAINT: Pneumonia. HISTORY OF PRESENT ILLNESS: 52-year-old female with no significant past medical history due to not following with a physician for many years presents to the ER with a chief complaint of worsening shortness of breath over the last 1 week. The patient states that she has been having fevers, runny nose, muscle aches, and cough productive of yellowish sputum. The patient does endorse that she has smoked a pack and half of tobacco daily for the last 20+ years. She also notes that she has been having lower extremity edema which has also been getting worse for several months. She states that the legs are more swollen after she drinks an excessive amount of diet Coke. She denies any complaints of chest pain, palpitations, abdominal pain, or any nausea/vomiting/diarrhea.. HOSPITAL COURSE: Pt was admitted with SOB 2/2 Bilateral CAP, Decompensated CHF Chest x-ray and CTA of the chest with findings suggestive of decompensated CHF/Bilateral infiltrates Procalcitonin level noted to be 0.22, and respiratory panel negative IV Rocephin and azithromycin transitioned to PO Cefdinir IV steroids transitioned to PO Prednisone, serial inhaler therapy ordered--- the patient will need a formal PFT study once her respiratory status is optimized as an outpatient. 2-D echocardiogram notable for preserved LV ejection fraction and diastolic function. However was noted to have very high central venous pressure and at least moderate pulmonary hypertension. Monitor I/O's--- the patient has a net negative fluid balance of close to 10 L since admission, and she has lost ~4kg's Fluid restriction Daily weights Respiratory/volume status continues to improve. Physical therapy ordered for further functional optimization Hypoxia 2/2 Above Patient down to 2-3L via NC this morning (5L on admission) We will continue to down titrate the patient's supplemental oxygen as tolerated Home o2 by 2 Lit NC DC home today . DISCHARGE MEDICATIONS: Please see below. ALLERGIES: Please see below. PHYSICAL EXAMINATION ON DISCHARGE: VITAL SIGNS: Please see below. GENERAL: Within normal limits HEENT: [PERRLA. Muscle intact NECK: Neck supple. Negative JVD CARDIOVASCULAR EXAMINATION: S1, S2, regular RESPIRATORY EXAMINATION: Clear to a and P ABDOMINAL EXAMINATION: Benign EXTREMITIES: No clubbing, cyanosis or edema SKIN: Normal NEUROLOGICAL EXAMINATION: Normal PSYCHIATRIC EXAMINATION: Normal LABORATORY DATA: Please see below. IMAGING: See above PROGNOSIS: Good ACTIVITY: As tolerated. DIET: Regular DISCHARGE PLAN: Follow-up with pulmonary and PCP in one week DISPOSITION: . DISCHARGE INSTRUCTIONS: 1. As a. ITEMS TO FOLLOWUP ON ON OUTPATIENT: 1. As above. DISCHARGE CONDITION: Stable. TIME SPENT ON DISCHARGE: Greater than 45 minutes Vital Signs/I&Os Vital Signs Date Time Temp Pulse Resp B/P (MAP) Pulse Ox O2 Delivery O2 Flow Rate FiO2 06/18/18 11:30 87 06/18/18 10:00 Room Air 06/18/18 08:00 95.4 60 18 145/85 (105) 06/18/18 07:00 2.0 I&O- Last 24 Hours up to 6 AM 06/18/18 05:59 Intake Total 2220 ml Output Total 4750 ml Balance -2530 ml Laboratory Data Labs 24H Laboratory Tests 2 06/17/18 17:12: Bedside Glucose (Misc Panel) 186H 06/17/18 19:53: Bedside Glucose (Misc Panel) 214H 06/18/18 04:38: Nucleated Red Blood Cells % (auto) 0.0, Anion Gap 4L, Glomerular Filtration Rate > 60.0, Blood Urea Nitrogen 19H, Creatinine 0.55, Sodium Level 136, Potassium Level 4.7, Chloride Level 105, Carbon Dioxide Level 27, Calcium Level 9.7 06/18/18 11:37: Bedside Glucose (Misc Panel) 131H CBC/BMP Laboratory Tests 06/18/18 04:38 Red Blood Count 6.71 H, Mean Corpuscular Volume 84.8, Mean Corpuscular Hemoglobin 24.0 L, Mean Corpuscular Hemoglobin Concent 28.3 L, Red Cell Distribution Width 18.6 H, Calcium Level 9.7 FSBS Laboratory Tests Test 06/17/18 17:12 06/17/18 19:53 06/18/18 11:37 Range/Units Bedside Glucose (Misc Panel) 186 214 131 70-105 MG/DL Microbiology Microbiology 06/12/18 Blood Culture - Final, Complete NO GROWTH AFTER 5 DAYS 06/12/18 Blood Culture - Final, Complete NO GROWTH AFTER 5 DAYS 06/12/18 Respiratory Virus Panel (PCR) ([facility]) - Final, Complete Discharge Medications Scheduled Cefdinir (Cefdinir) 300 Mg Capsule, 300 MG PO BID Furosemide (Furosemide) 40 Mg Tablet, 40 MG PO DAILY Ipratropium/Albuterol Sulfate (Combivent Respimat 20-100 Mcg) 4 Gm Mist.inhal, 2 PUFF INH TID Prednisone (Prednisone) 20 Mg Tablet, 20 MG PO DAILY Scheduled PRN Acetaminophen (Acetaminophen) 325 Mg Tablet, 650 MG PO Q4H PRN for PAIN OR FEVER Sennosides/Docusate Sodium (Senna Plus Tablet) 1 Each Tablet, 2 TAB PO BIDP PRN for CONSTIPATION Allergies Coded Allergies: No Known Allergies (Unverified , 06/12/18) YONIS KNIGHT MD June 18, 2018 12:14
== END 2018-06-18 15:17 | disposition home or self-care (01) | DRG 194 ==
LOC: M ED 05:24 → M ED INP 08:59 → M PCU 16:13
PROVIDERS: ADMIT Internal Medicine; ATTEND Internal Medicine
DX: I50.9 Heart failure, unspecified (principal); J96.01 Acute respiratory failure with hypoxia; Z68.44 Body mass index [BMI] 60.0-69.9, adult; J18.9 Pneumonia, unspecified organism; I27.20 Pulmonary hypertension, unspecified; E66.01 Morbid (severe) obesity due to excess calories; J44.9 Chronic obstructive pulmonary disease, unspecified; F17.210 Nicotine dependence, cigarettes, uncomplicated

== ENCOUNTER → 2018-06-29 | Outpatient (REF) | payer OTHER ==
[~2018-06-29] MED LIST: ACET1TAB55 PO; CEFD300CAP PO; COMBAER6 INH; FURO40TA2 PO; PRED20TA PO; SENN-52 PO
[2018-06-29 19:05] LABS: ALBUMIN 3.7 GM/DL (3.2-5.2); ALT/SGPT 18 U/L (12-78); BILIRUBIN,TOTAL 0.6 MG/DL (0.2-1.0); BLOOD UREA NITROGEN 13 MG/DL (7-18); CALCIUM LEVEL 9.9 MG/DL (8.5-10.1); CARBON DIOXIDE LEVEL 25 MEQ/L (21-32); CHLORIDE LEVEL 107 MEQ/L (98-107); GLOMERULAR FILTRATION RATE > 60.0 (>51); GLUCOSE, FASTING 114 MG/DL (70-100); MAGNESIUM LEVEL 2.3 MG/DL (1.8-2.4); NT-PRO BNP 70 PG/ML (<125); POTASSIUM SERUM 4.4 MEQ/L (3.5-5.1); SODIUM LEVEL 140 MEQ/L (136-145); TOTAL PROTEIN 7.2 GM/DL (6.4-8.2)
== END ==
LOC: M SFHCPLAZ 10:02
PROVIDERS: ATTEND Nurse Practitioner Family
DX: I50.21 Acute systolic (congestive) heart failure (principal); R73.09 Other abnormal glucose

== ENCOUNTER → 2018-07-14 | Outpatient (REF) | payer OTHER | LOC: M SFHCPLAZ 15:14 | PROVIDERS: ATTEND Nurse Practitioner Family | DX: R35.0 Frequency of micturition (principal) ==

== ENCOUNTER → 2018-09-21 | Outpatient (CLI) | payer OTHER ==
--- NOTE | 2018-09-29 11:54 | SLEEPCENT ---
DATE OF STUDY: 09/21/2018 ORDERED BY: Dr. Acosta Nocturnal polysomnography was performed for evaluation of sleep physiology in this patient with a history of excessive somnolence and comorbidities of hypertension, obesity, and congestive heart failure. 7 hours and 50 minutes of data were reviewed. There were 275 minutes of sleep identified. Sleep latency was prolonged at 97 minutes. Rapid eye movement (REM) latency was mildly prolonged at 93 minutes. Sleep architecture showed fragmentation and poor progression. Overall sleep efficiency was 59.4%. There were 2 REM cycles noted. The patient's electrocardiogram showed sinus rhythm with premature ventricular contractions (PVCs), average heart rate 65 beats per minute. Electroencephalogram (EEG) showed reasonably normal waveforms for awake and sleep. There were 88 respiratory events identified of 10 seconds in duration or greater for an apnea-hypopnea index of 19.2. The events were primarily obstructive not exclusive to sleep stage nor body posture. Arousals from respiratory events occurred 10.7 times per hour and oxygen desaturations were seen into the 70s. There was minimal limb activity and remaining measures of sleep physiology were normal. IMPRESSION: Obstructive sleep apnea syndrome (G47.33). Apnea-hypopnea index 19.2. RECOMMENDATIONS: The patient should be encouraged to return to the sleep disorder center for pressure therapy. In the interim, alcohol and sedative avoidance should be practiced and caution exercised during operation of motor vehicles.
== END ==
LOC: M SLEEP 19:37
PROVIDERS: ATTEND Internal Medicine Pulmonary Disease
DX: R40.0 Somnolence (principal)

== ENCOUNTER → 2018-11-13 | Outpatient (CLI) | payer OTHER ==
--- NOTE | 2018-11-18 10:08 | SLEEPCENT ---
DATE OF STUDY: 11/13/2018 ORDERED BY: Dr. Acosta Nocturnal polysomnography was performed for the titration of pressure therapy in this patient with obstructive sleep apnea syndrome and apnea-hypopnea index of 19. For testing, the patient was fit with a Respironics Venita View full face mask of large size and 4 cm of water pressure were applied to the circuit and the lights were extinguished. 7 hours and 31 minutes of data were reviewed. There were 345 minutes of sleep identified. Sleep latency was mildly prolonged at 21.5 minutes. Rapid eye movement (REM) latency was prolonged at 148 minutes. Sleep architecture was good with 4 REM cycles. Overall sleep efficiency was 77.5%. The electrocardiogram showed a sinus rhythm with relatively frequent aberrant beats. Average heart rate was 60 beats per minute. Electroencephalogram (EEG) showed alpha intrusion into non REM stages. No focal events were identified. Respiratory events were found best palliated with C-PAP at a pressure of 16. Some limb activity was noted, but limb movement arousal index was only 2.3. IMPRESSION: Obstructive sleep apnea syndrome (G47.33). RECOMMENDATION: Nightly use of pressure therapy at 16 cm of water.
== END ==
LOC: M SLEEP 19:06
PROVIDERS: ATTEND Internal Medicine Pulmonary Disease
DX: G47.33 Obstructive sleep apnea (adult) (pediatric) (principal)

== ENCOUNTER → 2018-11-17 | Outpatient (REF) | payer OTHER ==
[2018-11-17 12:06] LABS: BASO % 0.6 % (0.0-1.0); EOS # 0.1 10^3/uL (0.0-0.5); EOS % 1.2 % (0.0-3.0); HEMATOCRIT 51.8 % (36.0-47.0); HEMOGLOBIN 16.2 g/dl (12.0-15.5); LYMPH # 1.2 10^3/uL (1.5-5.0); LYMPH % 16.6 % (24.0-44.0); MEAN CORPUSCULAR HEMOGLOBIN 28.5 pg (27.0-33.0); MEAN CORPUSCULAR HGB CONC 31.3 g/dl (32.0-36.5); MEAN CORPUSCULAR VOLUME 91.2 fl (80.0-96.0); MONO # 0.5 10^3/uL (0.0-0.8); MONO % 7.2 % (0.0-5.0); NEUTROPHILS # 5.4 10^3/uL (1.5-8.5); PLATELET COUNT, AUTOMATED 130 10^3/uL (150-450); RED BLOOD COUNT 5.68 10^6/uL (4.00-5.40); WHITE BLOOD COUNT 7.2 10^3/uL (4.0-10.0)
[2018-11-17 12:20] LABS: ALBUMIN 3.6 GM/DL (3.2-5.2); ALT/SGPT 21 U/L (12-78); BILIRUBIN,TOTAL 0.5 MG/DL (0.2-1.0); BLOOD UREA NITROGEN 13 MG/DL (7-18); CALCIUM LEVEL 9.8 MG/DL (8.5-10.1); CARBON DIOXIDE LEVEL 29 MEQ/L (21-32); CHLORIDE LEVEL 108 MEQ/L (98-107); CHOLESTEROL LEVEL 173 MG/DL (<200); CHOLESTEROL RISK RATIO 4.675 (<5); CREATININE FOR GFR 0.69 MG/DL (0.55-1.30); FREE T4 1.39 NG/DL (0.76-1.46); GLOMERULAR FILTRATION RATE > 60.0 (>51); GLUCOSE, FASTING 113 MG/DL (70-100); HDL CHOLESTEROL 37 MG/DL (>40); LDL CHOLESTEROL 112 MG/DL (<100); NON-HDL-C 136 MG/DL; NT-PRO BNP 44 PG/ML (<125); POTASSIUM SERUM 4.2 MEQ/L (3.5-5.1); SODIUM LEVEL 144 MEQ/L (136-145); THYROID STIMULATING HORMONE 0.807 uIU/ML (0.358-3.740); TOTAL PROTEIN 7.1 GM/DL (6.4-8.2); TRIGLYCERIDES LEVEL 119 MG/DL (<150)
== END ==
LOC: M LABDRAWP 09:42
PROVIDERS: ATTEND Nurse Practitioner Family
DX: R60.0 Localized edema (principal); R73.09 Other abnormal glucose; F32.9 Major depressive disorder, single episode, unspecified; E78.5 Hyperlipidemia, unspecified

== ENCOUNTER → 2019-03-30 | Outpatient (CLI) | payer OTHER ==
[2019-03-30 17:57] LABS: BASO % 0.6 % (0.0-1.0); EOS # 0.1 10^3/uL (0.0-0.5); EOS % 0.7 % (0.0-3.0); HEMATOCRIT 50.3 % (36.0-47.0); HEMOGLOBIN 15.3 g/dl (12.0-15.5); LYMPH # 1.2 10^3/uL (1.5-5.0); LYMPH % 16.6 % (24.0-44.0); MEAN CORPUSCULAR HEMOGLOBIN 27.4 pg (27.0-33.0); MEAN CORPUSCULAR HGB CONC 30.4 g/dl (32.0-36.5); MONO # 0.4 10^3/uL (0.0-0.8); MONO % 5.2 % (0.0-5.0); NEUTROPHILS # 5.4 10^3/uL (1.5-8.5); NEUTROPHILS % 76.3 % (36.0-66.0); PLATELET COUNT, AUTOMATED 137 10^3/uL (150-450); RED BLOOD COUNT 5.59 10^6/uL (4.00-5.40); WHITE BLOOD COUNT 7.1 10^3/uL (4.0-10.0)
[2019-03-30 18:17] LABS: HEMOGLOBIN A1c 5.8 %
[2019-03-30 18:26] LABS: ALBUMIN 3.6 GM/DL (3.2-5.2); ALT/SGPT 20 U/L (12-78); BILIRUBIN,TOTAL 0.4 MG/DL (0.2-1.0); BLOOD UREA NITROGEN 9 MG/DL (7-18); CALCIUM LEVEL 9.5 MG/DL (8.5-10.1); CARBON DIOXIDE LEVEL 27 MEQ/L (21-32); CHLORIDE LEVEL 111 MEQ/L (98-107); CHOLESTEROL LEVEL 192 MG/DL (<200); CREATININE FOR GFR 0.69 MG/DL (0.55-1.30); FREE T4 1.29 NG/DL (0.76-1.46); GLOMERULAR FILTRATION RATE > 60.0 (>51); GLUCOSE, FASTING 138 MG/DL (70-100); HDL CHOLESTEROL 32 MG/DL (>40); LDL CHOLESTEROL 125 MG/DL (<100); NON-HDL-C 160 MG/DL; POTASSIUM SERUM 4.7 MEQ/L (3.5-5.1); SODIUM LEVEL 142 MEQ/L (136-145); TOTAL PROTEIN 6.9 GM/DL (6.4-8.2); TRIGLYCERIDES LEVEL 177 MG/DL (<150)
[2019-03-30 18:32] LABS: TOTAL 25(OH) VITAMIN D 4.5 NG/ML (30.0-100.0)
== END ==
LOC: M PLALAB 12:12
PROVIDERS: ATTEND Nurse Practitioner Family
DX: F32.9 Major depressive disorder, single episode, unspecified (principal); R73.09 Other abnormal glucose; E78.5 Hyperlipidemia, unspecified; E55.9 Vitamin D deficiency, unspecified

== ENCOUNTER → 2020-02-14 | Outpatient (CLI) | payer OTHER ==
[~2020-02-14] MED LIST changes: +ATOR1TAB21 PO; +BUSP5TA PO; +HYDR50TA70 PO; +MIRA3350 PO; +PROZ40CA PO; +VITA500079 PO
[2020-02-14 17:28] LABS: ALBUMIN 3.5 GM/DL (3.2-5.2); ALT/SGPT 16 U/L (12-78); BILIRUBIN,TOTAL 0.3 MG/DL (0.2-1.0); BLOOD UREA NITROGEN 12 MG/DL (7-18); CALCIUM LEVEL 10.6 MG/DL (8.5-10.1); CARBON DIOXIDE LEVEL 30 MEQ/L (21-32); CHLORIDE LEVEL 105 MEQ/L (98-107); CHOLESTEROL LEVEL 207 MG/DL (<200); CHOLESTEROL RISK RATIO 5.914 (<5); CREATININE FOR GFR 0.87 MG/DL (0.55-1.30); GLOMERULAR FILTRATION RATE > 60.0 (>51); GLUCOSE, FASTING 201 MG/DL (70-100); HDL CHOLESTEROL 35 MG/DL (>40); LDL CHOLESTEROL 113 MG/DL (<100); NON-HDL-C 172 MG/DL; POTASSIUM SERUM 4.3 MEQ/L (3.5-5.1); SODIUM LEVEL 139 MEQ/L (136-145); TOTAL 25(OH) VITAMIN D 18.5 NG/ML (30.0-100.0); TRIGLYCERIDES LEVEL 294 MG/DL (<150)
[2020-02-14 17:33] LABS: HEMOGLOBIN A1c 6.3 %
== END ==
LOC: M PLALAB 14:35
PROVIDERS: ATTEND Nurse Practitioner Family
DX: E78.5 Hyperlipidemia, unspecified (principal); F32.9 Major depressive disorder, single episode, unspecified; R73.09 Other abnormal glucose; E55.9 Vitamin D deficiency, unspecified

== ENCOUNTER → 2020-06-26 | Outpatient (REF) | payer OTHER ==
[2020-06-26 14:03] LABS: ALBUMIN 3.5 GM/DL (3.2-5.2); ALT/SGPT 21 U/L (12-78); BILIRUBIN,TOTAL 0.4 MG/DL (0.2-1.0); BLOOD UREA NITROGEN 11 MG/DL (7-18); CALCIUM LEVEL 10.4 MG/DL (8.5-10.1); CARBON DIOXIDE LEVEL 24 MEQ/L (21-32); CHLORIDE LEVEL 104 MEQ/L (98-107); CHOLESTEROL LEVEL 213 MG/DL (<200); CHOLESTEROL RISK RATIO 5.195 (<5); CREATININE FOR GFR 0.72 MG/DL (0.55-1.30); GLOMERULAR FILTRATION RATE > 60.0 (>51); GLUCOSE, FASTING 270 MG/DL (70-100); HDL CHOLESTEROL 41 MG/DL (>40); LDL CHOLESTEROL 125 MG/DL (<100); NON-HDL-C 172 MG/DL; POTASSIUM SERUM 4.2 MEQ/L (3.5-5.1); PTH INTACT 111.8 PG/ML (18.5-88.0); SODIUM LEVEL 138 MEQ/L (136-145); TOTAL 25(OH) VITAMIN D 16.2 NG/ML (30.0-100.0); TOTAL PROTEIN 6.8 GM/DL (6.4-8.2); TRIGLYCERIDES LEVEL 234 MG/DL (<150)
[2020-06-26 14:22] LABS: HEMOGLOBIN A1c 7.3 %
== END ==
LOC: M PLALAB 11:01
PROVIDERS: ATTEND Nurse Practitioner Family
DX: E78.5 Hyperlipidemia, unspecified (principal); R73.09 Other abnormal glucose; E55.9 Vitamin D deficiency, unspecified

== ENCOUNTER → 2020-06-28 | Outpatient (CLI) | payer OTHER ==
--- NOTE | 2020-06-29 02:04 | REPPI ---
INDICATION: M25.562 LEFT KNEE PAIN COMPARISON: None. TECHNIQUE: AP, lateral, bilateral oblique views of the left knee. FINDINGS: Mild age-related degenerative changes include subtle increased sclerosis along the tibial plateau with very subtle marginal spurring and minimal medial joint space narrowing. Lateral view suggest the possibility of suprapatellar effusion. The patella itself demonstrates mild spurring along the posterior superior and inferior margins.. IMPRESSION: Mild age-related degenerative changes as above. Possible suprapatellar effusion. No definite acute fracture or dislocation. <Electronically signed by Mark Anthony Craig > 06/29/20 [id number]
== END ==
LOC: M PLAIMG 13:52
PROVIDERS: ATTEND Nurse Practitioner Family
DX: M17.12 Unilateral primary osteoarthritis, left knee (principal)

== ENCOUNTER → 2020-10-23 | Outpatient (CLI) | payer OTHER ==
[2020-10-23 11:09] LABS: BASO % 0.6 % (0.0-1.0); EOS # 0.1 10^3/uL (0.0-0.5); EOS % 1.3 % (0.0-3.0); HEMATOCRIT 46.2 % (36.0-47.0); HEMOGLOBIN 14.4 g/dl (12.0-15.5); LYMPH # 1.2 10^3/uL (1.5-5.0); LYMPH % 16.2 % (24.0-44.0); MEAN CORPUSCULAR HEMOGLOBIN 27.9 pg (27.0-33.0); MEAN CORPUSCULAR HGB CONC 31.2 g/dl (32.0-36.5); MEAN CORPUSCULAR VOLUME 89.5 fl (80.0-96.0); MONO # 0.4 10^3/uL (0.0-0.8); MONO % 5.6 % (2.0-8.0); NEUTROPHILS # 5.3 10^3/uL (1.5-8.5); NEUTROPHILS % 75.5 % (36.0-66.0); PLATELET COUNT, AUTOMATED 131 10^3/uL (150-450); RED BLOOD COUNT 5.16 10^6/uL (4.00-5.40); WHITE BLOOD COUNT 7.1 10^3/uL (4.0-10.0)
[2020-10-23 12:47] LABS: BLOOD UREA NITROGEN 15 MG/DL (7-18); CALCIUM LEVEL 10.4 MG/DL (8.5-10.1); CARBON DIOXIDE LEVEL 23 MEQ/L (21-32); CHLORIDE LEVEL 108 MEQ/L (98-107); CREATININE FOR GFR 0.75 MG/DL (0.55-1.30); GLOMERULAR FILTRATION RATE > 60.0 (>51); GLUCOSE, FASTING 124 MG/DL (70-100); POTASSIUM SERUM 4.7 MEQ/L (3.5-5.1); SODIUM LEVEL 142 MEQ/L (136-145)
[2020-10-23 12:48] LABS: ALBUMIN 3.3 GM/DL (3.2-5.2); ALT/SGPT 17 U/L (12-78); BILIRUBIN,TOTAL 0.5 MG/DL (0.2-1.0); CHOLESTEROL LEVEL 158 MG/DL (<200); CHOLESTEROL RISK RATIO 4.787 (<5); FREE T4 1.35 NG/DL (0.76-1.46); HDL CHOLESTEROL 33 MG/DL (>40); LDL CHOLESTEROL 94 MG/DL (<100); NON-HDL-C 125 MG/DL; TOTAL 25(OH) VITAMIN D 36.1 NG/ML (30.0-100.0); TOTAL PROTEIN 6.5 GM/DL (6.4-8.2); TRIGLYCERIDES LEVEL 153 MG/DL (<150)
[2020-10-23 12:55] LABS: CREATININE, URINE 63.9 MG/DL; MALB URINE SIEMENS 76.5 MG/L; MAU/CREAT RATIO 119.7 MCG/MG (0.0-30.0)
[2020-10-23 18:25] LABS: HEMOGLOBIN A1c 5.9 %
== END ==
LOC: M PLALAB 08:50
PROVIDERS: ATTEND Nurse Practitioner Family
DX: E11.9 Type 2 diabetes mellitus without complications (principal)

== ENCOUNTER 2020-11-12 16:44 | Inpatient (IN) | payer OTHER ==
[~2020-11-12] VITALS: Ht 170.2 cm; Wt 175.2 kg
[2020-11-12] MEDS ORDERED: dexameTHASONE 20MG/5ML VIAL (J1100 PER 1MG) IV ONE (16:55)
[2020-11-12 17:39] LABS: BASO % 0.7 % (0.0-1.0); HEMATOCRIT 45.7 % (36.0-47.0); HEMOGLOBIN 14.6 g/dl (12.0-15.5); LYMPH # 0.6 10^3/uL (1.5-5.0); LYMPH % 15.5 % (24.0-44.0); MEAN CORPUSCULAR HEMOGLOBIN 27.6 pg (27.0-33.0); MEAN CORPUSCULAR HGB CONC 31.9 g/dl (32.0-36.5); MEAN CORPUSCULAR VOLUME 86.4 fl (80.0-96.0); MONO # 0.3 10^3/uL (0.0-0.8); MONO % 6.8 % (2.0-8.0); NEUTROPHILS # 3.1 10^3/uL (1.5-8.5); NEUTROPHILS % 75.1 % (36.0-66.0); PLATELET COUNT, AUTOMATED 161 10^3/uL (150-450); RED BLOOD COUNT 5.29 10^6/uL (4.00-5.40); WHITE BLOOD COUNT 4.1 10^3/uL (4.0-10.0)
[2020-11-12 17:48] LABS: CALCIUM LEVEL 10.1 MG/DL (8.5-10.1); CREATININE FOR GFR 1.2 MG/DL (0.55-1.30); GLOMERULAR FILTRATION RATE 49.8 (>51); POTASSIUM SERUM 5.2 MEQ/L (3.5-5.1)
[2020-11-12 17:49] LABS: INR 0.92; PROTHROMBIN TIME 12.8 SECONDS (12.7-14.5)
[2020-11-12 17:50] LABS: PARTIAL THROMBOPLASTIN TIME 27.1 SECONDS (25.9-37.0)
[2020-11-12 17:53] LABS: D-DIMER QUANT 2416.34 ng/ml (<500)
--- NOTE | 2020-11-12 17:57 | REP ---
INDICATION: DYSPNEA/COUGH. COMPARISON: Comparison chest radiograph June 12, 2018. TECHNIQUE: Portable upright AP chest radiograph. FINDINGS: Cardiomegaly is observed. Pulmonary vasculature is cephalized and indistinct. There is an extensive bilateral interstitial lung disease pattern which is nearly diffuse. There are some asymmetric increased involvement in the right lower lobe distribution. No pleural effusion is seen. Main pulmonary artery segment of the left heart border and the hilar silhouettes are somewhat prominent consistent with vascular congestion and possibly pulmonary hypertension. IMPRESSION: Cardiomegaly with vascular congestion and interstitial and alveolar edema pattern. Question superimposed right lower lobe infiltrate. <Electronically signed by Tyson Solorzano > 11/12/20 [id number]
[2020-11-12 18:03] LABS: RSV AMPLIFICATION NEGATIVE (NEGATIVE)
[2020-11-12] MEDS ORDERED: FUROSEMIDE 40MG/4ML VIAL (J1940) IV ONE (18:10)
[2020-11-12] MEDS ORDERED: cefTRIAXone SOD 1 GM in D5W MINI-BAG PLUS 50 ML IV ONE (18:20)
[2020-11-12] MEDS ORDERED: AZITHROMYCIN INJ 500 MG, VIAL MATE ADAPTER 1 EACH in NS 250 ML IV ONE (18:20)
[2020-11-12] MEDS ORDERED: ERGO500029 PO (18:38)
[2020-11-12] MEDS ORDERED: METF750T36 PO (18:38)
[2020-11-12] MEDS ORDERED: ZOLO100T PO (18:38)
[2020-11-12] MEDS ORDERED: TRUL0.5I SC (18:38)
[2020-11-12] MEDS ORDERED: ATOR40TA75 PO (18:38)
[2020-11-12] MEDS ORDERED: LISI10TA22 PO (18:38)
[2020-11-12] MEDS ORDERED: BUSP1TAB PO (18:38)
[2020-11-12] MEDS ORDERED: MED REC COMMENT (18:39)
[2020-11-12] MEDS ORDERED: HOME MED LIST COMPLETE! XX SCH (18:40)
[2020-11-12 19:26] LABS: ABG BASE EXCESS -4.8 (-2.0-2.0); ABG HCO3 17.7 MEQ/L (22.0-26.0); ABG O2 SATURATION 91.5 % (95.0-99.0); ABG PARTIAL PRESSURE CO2 26.6 mmHg (35.0-45.0); ABG PARTIAL PRESSURE O2 60.1 mmHg (75.0-100.0); ABG STANDARD HCO3 20.4 MEQ/L (22.0-26.0); ABG TOTAL CO2 18.5 MEQ/L (22.0-29.0)
[2020-11-12] MEDS ORDERED: ISOVUE-370 76% 100ML VIAL As Ordered ONE (19:45)
--- NOTE | 2020-11-12 20:52 | ECGEPIP ---
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
[2020-11-12] MEDS ORDERED: ONDANSETRON 4MG/2ML VIAL IV ONE (21:00)
--- NOTE | 2020-11-12 21:13 | REPVR ---
PROCEDURE INFORMATION: Exam: CTA Chest With Contrast Exam date and time: 11/12/2020 8:07 PM Age: 55 years old Clinical indication: Abnormal findings; Abnormal diagnostic tests; Elevated d-dimer; Additional info: 55yo F HX chf, covid+, ahrf, +d-dimer, eval for pe TECHNIQUE: Imaging protocol: Computed tomographic angiography of the chest with contrast. 3D rendering (Not supervised by radiologist): MIP and/or 3D reconstructed images were created by the technologist. Radiation optimization: All CT scans at this facility use at least one of these dose optimization techniques: automated exposure control; mA and/or kV adjustment per patient size (includes targeted exams where dose is matched to clinical indication); or iterative reconstruction. Contrast material: ISOVUE 370; Contrast volume: 100 ml; Contrast route: INTRAVENOUS (IV); COMPARISON: CT ANGIO CHEST 06/12/2018 8:11 AM FINDINGS: Pulmonary arteries: There is enlargement of the central pulmonary arteries, findings which can be associated with pulmonary arterial hypertension which should be correlated clinically. Excessive streak artifact and contrast density within the pulmonary arteries limits the ability to exclude the presence of small peripheral pulmonary emboli. That said, there are no large or medium-sized vessel emboli visualized. Aorta: There is no aortic dissection or aneurysm. Lungs: Bilateral semi-solid and solid pulmonary parenchymal infiltrates located predominantly in the mid and peripheral lung zone extending to the pleural surfaces. Findings consistent with multifocal viral pneumonitis (organizing type) and known Covid diagnosis. Pleural spaces: Unremarkable. No pneumothorax. No pleural effusion. Heart: Cardiomegaly. Small pericardial effusion. Lymph nodes: Mediastinal lymphadenopathy measuring up to 3.5 cm in the retrocaval pretracheal area. Bilateral hilar lymphadenopathy. Bones/joints: Unremarkable. No acute fracture. Soft tissues: Unremarkable. IMPRESSION: 1. Bilateral semi-solid and solid pulmonary parenchymal infiltrates located predominantly in the mid and peripheral lung zone extending to the pleural surfaces. Findings consistent with multifocal viral pneumonitis (organizing type) and known Covid diagnosis. 2. Mediastinal lymphadenopathy measuring up to 3.5 cm in the retrocaval pretracheal area. Bilateral hilar lymphadenopathy. 3. There is no aortic dissection or aneurysm. 4. There is enlargement of the central pulmonary arteries, findings which can be associated with pulmonary arterial hypertension which should be correlated clinically. 5. Excessive streak artifact and contrast density within the pulmonary arteries limits the ability to exclude the presence of small peripheral pulmonary emboli. That said, there are no large or medium-sized vessel emboli visualized. 6. Cardiomegaly. 7. Small pericardial effusion. Electronically signed by: Mike Elliott On 11/12/2020 21:12:36 PM
[2020-11-12] MEDS ORDERED: METOPROLOL 5 MG/5 ML VIAL IV STA (21:45)
[2020-11-12] MEDS ORDERED: MOM 30ML SUSPENSION UDC PO PRN (23:05)
[2020-11-12] MEDS ORDERED: MAALOX 30 ML SUSP *UDC PO PRN (23:05)
[2020-11-12] MEDS ORDERED: ACETAMINOPHEN TAB 650MG DOSE (2X325MG) PO PRN (23:05)
[2020-11-12] MEDS ORDERED: ENOXAPARIN 100MG/1ML SYRINGE (J1650 PER 10MG) SC SCH (23:15)
--- NOTE | 2020-11-12 23:23 | HPEPDOC ---
[facility] Medical History & Physical Date of Admission Nov 12, 2020 Date of Service: Nov 12, 2020 History and Physical CHIEF COMPLAINT: Shortness of breath HISTORY OF PRESENT ILLNESS: Patient is a 55-year-old female with a past medical history of suspected COPD, congestive heart failure, pulmonary hypertension, obesity, presented to the ER complaining of a 7-day history of generalized weakness and malaise shortness of breath cough and subjective fevers. She was diagnosed with COVID-19 infection in the ER. Found to be hypoxic to the 70s, placed on BiPAP at 50% FiO2 at which point her saturation improved to 94% and her tachypnea had improved. She was found to be tachycardic to approximately 180 bpm with a EKG showing atrial fibrillation with a RVR. Further due to significant edema and shortness of breath her BNP was elevated at 6624. She was given a dose of furosemide 40 mg IV. Patient be admitted to hospitalist service for management of acute hypoxic respiratory failure and new onset afib with RVR. Dr. Jelani day from pulmonary critical care was consulted for BiPAP management. After discussion given the patient's improvement on BiPAP and relatively low oxygen requirement patient was transitioned to Vapotherm for this time. BiPAP will be used as needed. PAST MEDICAL HISTORY: Strongly suspected COPD not on oxygen Obesity class III Congestive heart failure, LVEF 60% with pulmonary hypertension on 06/23/28. PAST SURGICAL HISTORY: section SOCIAL HISTORY: [id number] smoking history quit approximately 1 year ago Social alcohol use Denies illicit drug use FAMILY HISTORY: Reviewed with patient, no relevant history provided. ALLERGIES: Please see below. REVIEW OF SYSTEMS: 10 point ROS was conducted, relevant findings are noted in the HPI HOME MEDICATIONS: Please see below. PHYSICAL EXAMINATION: VITAL SIGNS: please see below General: NAD, comfortable HEENT: PERRLA, EOMI, sclerae clear, BiPAP mask in place Neck: supple, normal ROM, no JVD Respiratory: Crackles noted bilateral lung bases. Poor inspiratory effort CVS: RRR, normal S1, S2, no murmurs Abdo: soft, no masses, no hepatosplenomegaly, BS+, no rebound tenderness Extremities: no edema, pulses 2+ MSK: no joint deformities, normal ROM Neuro: no focal neuro deficits, moving all 4 extremities, CN2-12 intact. Strength 5/5 in all 4 extremities. No nystagmus. Psych: calm, cooperative, AAO x 3 LABORATORY DATA: See below. IMAGING: CXR (11/12/20): IMPRESSION: Cardiomegaly with vascular congestion and interstitial and alveolar edema pattern. Question superimposed right lower lobe infiltrate. CTA Chest (11/12/20): IMPRESSION: 1. Bilateral semi-solid and solid pulmonary parenchymal infiltrates located predominantly in the mid and peripheral lung zone extending to the pleural surfaces. Findings consistent with multifocal viral pneumonitis (organizing type) and known Covid diagnosis. 2. Mediastinal lymphadenopathy measuring up to 3.5 cm in the retrocaval pretracheal area. Bilateral hilar lymphadenopathy. 3. There is no aortic dissection or aneurysm. 4. There is enlargement of the central pulmonary arteries, findings which can be associated with pulmonary arterial hypertension which should be correlated clinically. 5. Excessive streak artifact and contrast density within the pulmonary arteries limits the ability to exclude the presence of small peripheral pulmonary emboli. That said, there are no large or medium-sized vessel emboli visualized. 6. Cardiomegaly. 7. Small pericardial effusion. MICROBIOLOGY: Please see below. ASSESSMENT: 55-year-old female with a past medical history of likely COPD, congestive heart failure, pulmonary hypertension, obesity, presented to the ER with acute hypoxic respiratory failure secondary to COVID-19 pneumonia and acute diastolic congestive heart failure. Coplicated by new onset afib with RVR. Patient likely has superimposed bacterial pneumonia. Patient initially placed on BiPAP transition to Vapotherm. Discussed with pulmonology plan to use BiPAP intermittently overnight. Patient will be admitted to hospitalist service to ICU. PLAN: Acute hypoxic respiratory failure: 2/2 covid-19 with suspected bacterial pna, along with diastolic CHF exacerbation. Hypoxic to 70s. Placed on bipap. D/w Dr. Fields. Transitioned to vapotherm. Use bipap prn. Pulm consult placed. Proceed with covid and fluid overload management, see below. Covid-19 infection: c/w dexamethasone 6 mg IV BID. Start remdesivir. Treat superimposed CAP with ceftriaxone and azithromycin. Incentive spirometer. Tylenol prn for fever. Xopenex neb q4h prn in setting of tachycardia. Trend inflammatory markers. Afib with RVR: new onset. HR 180s, improved to 150. IV metoprolol ordered. Check LA, trop, TSH. Likely brought on by acute hypoxia. Check 2D echo. Start the rapeutic lovenox, until echo report ready. Diastolic CHF exacerbation: clinical findings suggest fluid overload. Hx of pulm htn. CXR showing pulm edema. Cardiomegaly. BNP 6600. S/p Lasix 40 mg IV in ER. C/w Lasix 40 mg IV q8h. 2D echo ordered. Daily weights. Strict Is and Os. 2g Na diet. Dispo: admission expect to last > 2 midnights Vital Signs Vital Signs Date Time Temp Pulse Resp B/P (MAP) Pulse Ox O2 Delivery O2 Flow Rate FiO2 11/12/20 22:28 100.6 129 30 163/67 (99) 95 High Flow Cannula 40.0 100 Laboratory Data Labs 24H Laboratory Tests 2 11/12/20 17:00: Immature Granulocyte % (Auto) 1.9, Neutrophils (%) (Auto) 75.1H, Lymphocytes (%) (Auto) 15.5L, Monocytes (%) (Auto) 6.8, Eosinophils (%) (Auto) 0.0, Basophils (%) (Auto) 0.7, Neutrophils # (Auto) 3.1, Lymphocytes # (Auto) 0.6L, Monocytes # (Auto) 0.3, Eosinophils # (Auto) 0.0, Basophils # (Auto) 0.0, Nucleated Red Blood Cells % (auto) 0.0, Prothrombin Time 12.8, Prothromb Time International Ratio 0.92, Activated Partial Thromboplast Time 27.1, D-Dimer, Quantitative 2416.34H, Anion Gap 8, Glomerular Filtration Rate 49.8L, Calcium Level 10.1, FF-Vvq-C-Type Natriuretic Peptide 6624H, Coronavirus (COVID-19)(PCR) POSITIVEA, Influenza Type A (RT-PCR) NEGATIVE, Influenza Type B (RT-PCR) NEGATIVE, Respiratory Syncytial Virus (PCR) NEGATIVE 11/12/20 19:09: Blood Gas Bicarbonate Standard 20.4L, Arterial Blood pH 7.440, Arterial Blood Partial Pressure CO2 26.6L, Arterial Blood Partial Pressure O2 60.1L, Arterial Blood Total CO2 18.5L, Arterial Blood HCO3 17.7L, Arterial Blood Base Excess - 4.8L, Arterial Blood Oxygen Saturation 91.5L 11/12/20 20:30: Bedside Glucose (Misc Panel) 193H 11/12/20 22:07: Lactic Acid Level 1.5, Troponin I 0.03 CBC/BMP Laboratory Tests 11/12/20 17:00 Home Medications Scheduled Atorvastatin Calcium (Atorvastatin Calcium) 40 Mg Tablet, 40 MG PO DAILY Buspirone HCl (Buspirone HCl) 7.5 Mg Tablet, 7.5 MG PO TID Dulaglutide (Trulicity) 1.5 Mg/0.5 Ml Pen.injctr, 1.5 MG SC QWEEK FRIDAYS Ergocalciferol (Vitamin D2) (Vitamin D2) 50,000 Units Cap, 50,000 UNIT PO QWEEK Lisinopril (Lisinopril) 10 Mg Tablet, 10 MG PO DAILY Metformin HCl (Metformin HCl ER) 750 Mg Tab.er.24h, 750 MG PO DAILY Sertraline Hcl (Zoloft) 100 Mg Tablet, 100 MG PO DAILY Miscellaneous Medications [Med Rec Comment] OBTAINED MED LIST FROM DAUGHTER AND PHARMACY, UNABLE TO VERIFY LAST DOSES Allergies Coded Allergies: ciprofloxacin (Verified Allergy, Unknown, 11/12/20) A-FIB/CHADSVASC A-FIB History Current/History of A-Fib/PAF?: Yes Current PO Anticoag Therapy: No LAURA OBRIEN MD Nov 12, 2020 23:23
[2020-11-12 23:46] VITALS: BP 108/52
[2020-11-13] VITALS (21 sets, daily range): BP systolic 80–117; BP diastolic 50–78
[2020-11-13] MEDS: LEVALBUTEROL 1.25 MG/0.5 ML CONCENTRATE NEB INH SCH ×6 (00:12→19:37)
[2020-11-13] MEDS: METOPROLOL 5 MG/5 ML VIAL IV SCH ×2 (00:24→01:10)
[2020-11-13] MEDS ORDERED: REMDESIVIR 200 MG in NS 250 ML IV ONE (00:30)
[2020-11-13] MEDS: ENOXAPARIN 120MG/0.8ML SYRINGE (J1650 PER 10MG) SC SCH ×3 (00:53→23:42)
[2020-11-13] MEDS: FUROSEMIDE 40MG/4ML VIAL (J1940) IV SCH ×2 (02:00→02:15)
[2020-11-13] MEDS ORDERED: SODIUM CHLORIDE 0.9% INJ 10 ML SYR IV ONE (02:30)
[2020-11-13 05:10] LABS: HEMOGLOBIN 13.2 g/dl (12.0-15.5); MEAN CORPUSCULAR HEMOGLOBIN 27.4 pg (27.0-33.0); MEAN CORPUSCULAR HGB CONC 31.4 g/dl (32.0-36.5); MEAN CORPUSCULAR VOLUME 87.3 fl (80.0-96.0); PLATELET COUNT, AUTOMATED 144 10^3/uL (150-450); RED BLOOD COUNT 4.81 10^6/uL (4.00-5.40); WHITE BLOOD COUNT 2.2 10^3/uL (4.0-10.0)
[2020-11-13 05:20] LABS: INR 0.97; PROTHROMBIN TIME 13.3 SECONDS (12.7-14.5)
[2020-11-13 05:21] LABS: PARTIAL THROMBOPLASTIN TIME 33.4 SECONDS (25.9-37.0)
[2020-11-13 05:24] LABS: D-DIMER QUANT 2375.87 ng/ml (<500)
[2020-11-13 05:35] LABS: ALBUMIN 2.4 GM/DL (3.2-5.2); BILIRUBIN,TOTAL 0.3 MG/DL (0.2-1.0); CREATININE FOR GFR 1.06 MG/DL (0.55-1.30); GLOMERULAR FILTRATION RATE 57.5 (>51); MAGNESIUM LEVEL 1.9 MG/DL (1.8-2.4); TOTAL PROTEIN 6.3 GM/DL (6.4-8.2)
[2020-11-13 05:38] LABS: C REACTIVE PROTEIN QUANTITATIV 8.25 MG/DL (0.00-0.30); TROPONIN I 0.02 NG/ML (< 0.10)
--- NOTE | 2020-11-13 08:48 | IPNPDOC ---
Subjective Date Seen The patient was seen on 11/13/20. Subjective Chief Complaint/HPI Patient was seen and examined at bedside this morning. She reports feeling short of breath with movement, however at the Vapotherm has significantly improved her symptoms. She also reports she does better laying on her right side and feels more comfortable that way. She was educated if she could go prone or lay on the side that helps with oxygen saturations that would be encouraged. Objective Physical Examination Other physical findings General: Lying in bed, no acute distress, obese Head/Neck/Throat: Trachea midline, mucous membranes moist Eyes: Sclera anicteric, no erythema or discharge appreciated bilaterally Thorax: Normal respiratory effort on room air, lungs clear to auscultation bilaterally, no wheezes/rales/rhonchi Cardiovascular: Normal rate, regular rhythm, normal S1, S2; no S3, S4, rubs/gallops/murmurs Abdomen: Bowel sounds present, soft/nontender/nondistended Genitourinary: No CVA tenderness, no Clemente in place Musculoskeletal: Moving all extremities, no edema Skin: Warm, dry Neurologic: AAOx3, speech fluent and goal-directed, no focal deficits, grossly intact Assessment /Plan Assessment #Acute respiratory failure with hypoxemia -Secondary to Covid pneumonia and CHF exacerbation. Continue with dexamethasone and remdesivir. Continue with Vapotherm and BiPAP as needed. -Likely also has obesity hypoventilation syndrome -Continue with ceftriaxone and azithromycin, discontinue if procalcitonin levels are low #COVID-19 -Management as above #Atrial fibrillation with rapid ventricular response -Likely secondary to underlying respiratory distress. She responded well to IV metoprolol in the emergency room department. Continue with metoprolol 25 mg every 8 with holding parameters; with improvement in her resp. status it will also help with her uncontrolled hr. Started on therapeutic Lovenox. #Heart failure with preserved ejection fraction, exacerbation -Continue with IV furosemide 40 mg. Follow-up on echocardiogram. Daily weights, intake/output, 2 g sodium diet #DVT prophylaxis -On therapeutic Lovenox Plan/VTE VTE Prophylaxis Ordered?: Yes VS, I&O, 24H, Fishbone Vital Signs/I&O Vital Signs Date Time Temp Pulse Resp B/P (MAP) Pulse Ox O2 Delivery O2 Flow Rate FiO2 11/13/20 08:17 88 HVNI-Vapotherm 40.0 85 11/13/20 08:14 24 11/13/20 08:00 98.6 119 117/67 (84) I&O- Last 24 Hours up to 6 AM 11/13/20 06:00 Intake Total 1120 ml Output Total 1395 ml Balance -275 ml Laboratory Data 24H LABS Laboratory Tests 2 11/12/20 17:00: Immature Granulocyte % (Auto) 1.9, Neutrophils (%) (Auto) 75.1H, Lymphocytes (%) (Auto) 15.5L, Monocytes (%) (Auto) 6.8, Eosinophils (%) (Auto) 0.0, Basophils (%) (Auto) 0.7, Neutrophils # (Auto) 3.1, Lymphocytes # (Auto) 0.6L, Monocytes # (Auto) 0.3, Eosinophils # (Auto) 0.0, Basophils # (Auto) 0.0, Nucleated Red Blood Cells % (auto) 0.0, Prothrombin Time 12.8, Prothromb Time International Ratio 0.92, Activated Partial Thromboplast Time 27.1, D-Dimer, Quantitative 2416.34H, Anion Gap 8, Glomerular Filtration Rate 49.8L, Calcium Level 10.1, TN-Rhj-I-Type Natriuretic Peptide 6624H, Coronavirus (COVID-19)(PCR) POSITIVEA, Influenza Type A (RT-PCR) NEGATIVE, Influenza Type B (RT-PCR) NEGATIVE, Respiratory Syncytial Virus (PCR) NEGATIVE 11/12/20 19:09: Blood Gas Bicarbonate Standard 20.4L, Arterial Blood pH 7.440, Arterial Blood Partial Pressure CO2 26.6L, Arterial Blood Partial Pressure O2 60.1L, Arterial Blood Total CO2 18.5L, Arterial Blood HCO3 17.7L, Arterial Blood Base Excess - 4.8L, Arterial Blood Oxygen Saturation 91.5L 11/12/20 20:30: Bedside Glucose (Misc Panel) 193H 11/12/20 22:07: Lactic Acid Level 1.5, Troponin I 0.03 11/13/20 04:39: Nucleated Red Blood Cells % (auto) 0.0, Prothrombin Time 13.3, Prothromb Time International Ratio 0.97, Activated Partial Thromboplast Time 33.4, Fibrinogen 659H, D-Dimer, Quantitative 2375.87H, Anion Gap 6L, Glomerular Filtration Rate 57.5, Calcium Level 10.0, Magnesium Level 1.9, Ferritin 1722H, Total Bilirubin 0.3, Aspartate Amino Transf (AST/SGOT) 36, Alanine Aminotransferase (ALT/SGPT) 29, Alkaline Phosphatase 107, Lactate Dehydrogenase 390H, Total Creatine Kinase 79, Troponin I 0.02#, C-Reactive Protein, Quantitative 8.25H, Total Protein 6.3L, Albumin 2.4L, Albumin/Globulin Ratio 0.6L CBC/BMP Laboratory Tests 11/12/20 17:00 11/13/20 04:39 HUSAM CARDONA M.D. Nov 13, 2020 08:48
[2020-11-13] MEDS ORDERED: FUROSEMIDE 40MG/4ML VIAL (J1940) IV SCH (09:00)
[2020-11-13] MEDS: dexameTHASONE 4 MG/ML 1ML VIAL (J1100 PER 1MG) IV SCH ×2 (09:37→21:18)
[2020-11-13] MEDS: METOPROLOL TART 25 MG TABLET PO SCH ×3 (09:40→22:17)
--- NOTE | 2020-11-13 10:58 | CR.PDOC ---
General Date of Consultation: Nov 13, 2020 Referring Provider: LAURA OBRIEN MD Attending Physician: SUSU ROBERTSON MD Consultation REASON FOR CONSULTATION/CHIEF COMPLAINT: Acute hypoxic respiratory failure 2/2 covid-19 HISTORY OF PRESENT ILLNESS: Patient is a 55-year-old female with a PMHx of CHF, Pulmonary HTN, and obesity presenting to the ED complaining of a 7-day history of generalized weakness and malaise shortness of breath cough and subjective fevers. She was diagnosed with COVID-19 infection in the ER. Found to be hypoxic to the 70s, placed on BiPAP at 50% FiO2 at which point her saturation improved to 94% and her tachypnea had improved. She was found to be tachycardic to approximately 180 bpm with a EKG showing atrial fibrillation with a RVR. Further due to significant edema and shortness of breath her BNP was elevated at 6624. She was given a dose of furosemide 40 mg IV. Patient be admitted to hospitalist service for management of acute hypoxic respiratory failure and new onset afib with RVR. Pulmonary was consulted for BiPAP management. Patient was seen today lying in bed comfortably using Vapotherm 40L FIO2 90%. No acute events overnight; patient did use BiPAP overnight. Patient has no complaints and states that her breathing does feel better than yesterday. ALLERGIES: Please see below. HOME MEDICATIONS: Please see below. PAST MEDICAL HISTORY: 1. CHF with LVEF 60%, LVH, dilated LV, mild MS, mild . moderate pulmonary hypertension (echo 06/2018) 2. Obesity 3. ELIJAH noncompliant with PAP therapy PAST SURGICAL HISTORY: 1. 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 GENERAL: in no acute distress, on Vapotherm saturating >90% HEENT: PERRLA, EOMI, mucous membranes moist CARDIOVASCULAR: tachy, regular rhythm; S1 S2; no murmur, rubs or gallops noted RESPIRATORY: Coarse breath sounds; good air entry bilaterally, no wheezing ABDOMINAL: normal active bowel sounds; soft, nondistended, no tenderness with palpation EXTREMITIES: no pitting edema bilaterally; +2 doralis pedis palpated SKIN: no rash, no purpura NEUROLOGICAL: Cranial nerves II through XII grossly intact; no focal neurologic deficits noted LABORATORY DATA: Please see below. IMPRESSION: The most critical problems requiring my immediate presence at bedside are: 1. Acute hypoxic respiratory failure secondary to covid-19 with elevated inflammatory markers 2. Atrial fibrillation with RVR new onset and hx of diastolic CHF, BNP 6624 likely there is a component of cardiogenic pulmonary edema 4. Evidence of PHTN on echo likely group 2 5. Hx of Morbid obesity and ELIJAH noncompliant with PAP therapy 6. Hx of anxiety/depression PLAN: * Titrate down oxygen as tolerated, Keep oxygen saturations 88 to 96%; continue Vapotherm; BiPAP as needed * Awake proning as much as tolerated and can give bronchodilators as needed * Continue remdesivir and steroids. Recommend starting barictinib PO 4mg daily x 14 days * Check EKG, continue rate controlling medications * Procalcitonin <0.05 low suspicion for bacterial PNA, recommend consider d/c antibiotics * Continue with Lasix; diurese as tolerated, I</=O * DVT prophylaxis: Therapeutic Lovenox * full code A total of 49 minutes of critical care time was spent, not including procedures Vital Signs/I&O Vital Signs Date Time Temp Pulse Resp B/P (MAP) Pulse Ox O2 Delivery O2 Flow Rate FiO2 11/13/20 09:58 88 HVNI-Vapotherm 40.0 75 11/13/20 09:40 148 110/60 11/13/20 08:14 24 11/13/20 08:00 98.6 I&O- Last 24 Hours up to 6 AM 11/13/20 06:00 Intake Total 1120 ml Output Total 1395 ml Balance -275 ml Laboratory Data Labs 24H Laboratory Tests 2 11/12/20 17:00: Immature Granulocyte % (Auto) 1.9, Neutrophils (%) (Auto) 75.1H, Lymphocytes (%) (Auto) 15.5L, Monocytes (%) (Auto) 6.8, Eosinophils (%) (Auto) 0.0, Basophils (%) (Auto) 0.7, Neutrophils # (Auto) 3.1, Lymphocytes # (Auto) 0.6L, Monocytes # (Auto) 0.3, Eosinophils # (Auto) 0.0, Basophils # (Auto) 0.0, Nucleated Red Blood Cells % (auto) 0.0, Prothrombin Time 12.8, Prothromb Time International Ratio 0.92, Activated Partial Thromboplast Time 27.1, D-Dimer, Quantitative 2416.34H, Anion Gap 8, Glomerular Filtration Rate 49.8L, Calcium Level 10.1, EA-Cli-F-Type Natriuretic Peptide 6624H, Coronavirus (COVID-19)(PCR) POSITIVEA, Influenza Type A (RT-PCR) NEGATIVE, Influenza Type B (RT-PCR) NEGATIVE, Respiratory Syncytial Virus (PCR) NEGATIVE 11/12/20 19:09: Blood Gas Bicarbonate Standard 20.4L, Arterial Blood pH 7.440, Arterial Blood Partial Pressure CO2 26.6L, Arterial Blood Partial Pressure O2 60.1L, Arterial Blood Total CO2 18.5L, Arterial Blood HCO3 17.7L, Arterial Blood Base Excess - 4.8L, Arterial Blood Oxygen Saturation 91.5L 11/12/20 20:30: Bedside Glucose (Misc Panel) 193H 11/12/20 22:07: Lactic Acid Level 1.5, Troponin I 0.03 11/13/20 04:39: Nucleated Red Blood Cells % (auto) 0.0, Prothrombin Time 13.3, Prothromb Time International Ratio 0.97, Activated Partial Thromboplast Time 33.4, Fibrinogen 659H, D-Dimer, Quantitative 2375.87H, Anion Gap 6L, Glomerular Filtration Rate 57.5, Calcium Level 10.0, Magnesium Level 1.9, Ferritin 1722H, Total Bilirubin 0.3, Aspartate Amino Transf (AST/SGOT) 36, Alanine Aminotransferase (ALT/SGPT) 29, Alkaline Phosphatase 107, Lactate Dehydrogenase 390H, Total Creatine Kinase 79, Troponin I 0.02#, C-Reactive Protein, Quantitative 8.25H, Total Protein 6.3L, Albumin 2.4L, Albumin/Globulin Ratio 0.6L, Procalcitonin <0.05 CBC/BMP Laboratory Tests 11/12/20 17:00 11/13/20 04:39 Allergies Coded Allergies: ciprofloxacin (Verified Allergy, Unknown, 11/12/20) Home Medications Scheduled Atorvastatin Calcium (Atorvastatin Calcium) 40 Mg Tablet, 40 MG PO DAILY, (Reported) Buspirone HCl (Buspirone HCl) 7.5 Mg Tablet, 7.5 MG PO TID, (Reported) Dulaglutide (Trulicity) 1.5 Mg/0.5 Ml Pen.injctr, 1.5 MG SC QWEEK, (Reported) FRIDAYS Ergocalciferol (Vitamin D2) (Vitamin D2) 50,000 Units Cap, 50,000 UNIT PO QWEEK, (Reported) Lisinopril (Lisinopril) 10 Mg Tablet, 10 MG PO DAILY, (Reported) Metformin HCl (Metformin HCl ER) 750 Mg Tab.er.24h, 750 MG PO DAILY, (Reported) Sertraline Hcl (Zoloft) 100 Mg Tablet, 100 MG PO DAILY, (Reported) Miscellaneous Medications [Med Rec Comment] , (Reported) OBTAINED MED LIST FROM DAUGHTER AND PHARMACY, UNABLE TO VERIFY LAST DOSES GME ATTESTATION GME ATTESTATION My faculty preceptor for this patient encounter was physically present during the encounter and was fully available. All aspects of the patient interview, examination, medical decision making process, and medical care plan development were reviewed and approved by the faculty preceptor. The faculty preceptor is aware and concurs with the plan as stated in the body of this note and will attest to such by his/her cosignature. ATTENDING NOTE I, Susu Robertson, conducted an independent examination and history of the patient and agree with the plan as detailed by resident and edited where necessary. Cindy Patel DO Nov 13, 2020 10:58 SUSU ROBERTSON MD Nov 13, 2020 11:34
[2020-11-13] MEDS ORDERED: cefTRIAXone SOD 1 GM in D5W MINI-BAG PLUS 50 ML IV SCH (17:00)
[2020-11-13] MEDS ORDERED: DIGOXIN INJ 0.5 MG/2 ML AMP (J1160) IV STA (17:24)
[2020-11-13] MEDS ORDERED: DEXTROSE 50% 50 ML SYRINGE IV PRN (17:30)
[2020-11-13] MEDS ORDERED: GLUCOSE 4GM CHEW TABLET PO PRN (17:30)
[2020-11-13] MEDS ORDERED: GLUCAGON INJ 1MG VIAL SC PRN (17:30)
[2020-11-13] MEDS ORDERED: PILL CUTTER 1 EACH XX PRN (17:35)
[2020-11-13] MEDS: HumaLOG INSULIN (NovoLOG) PER UNIT SC SCH ×2 (17:51→21:00)
[2020-11-13] MEDS ORDERED: AZITHROMYCIN INJ 500 MG, VIAL MATE ADAPTER 1 EACH in NS 250 ML IV SCH (18:00)
[2020-11-13] MEDS: busPIRone 5 MG TAB PO SCH (21:18)
[2020-11-13] MEDS: REMDESIVIR 100 MG in NS 250 ML IV SCH (22:18)
[2020-11-13] MEDS: SODIUM CHLORIDE 0.9% INJ 10 ML SYR IV SCH (23:42)
[2020-11-14] VITALS (7 sets, daily range): BP systolic 107–130; BP diastolic 62–83
[2020-11-14] MEDS: LEVALBUTEROL 1.25 MG/0.5 ML CONCENTRATE NEB INH SCH ×8 (04:00→23:22)
[2020-11-14 04:54] LABS: HEMATOCRIT 41.6 % (36.0-47.0); HEMOGLOBIN 13.1 g/dl (12.0-15.5); MEAN CORPUSCULAR HEMOGLOBIN 27.8 pg (27.0-33.0); MEAN CORPUSCULAR HGB CONC 31.5 g/dl (32.0-36.5); MEAN CORPUSCULAR VOLUME 88.1 fl (80.0-96.0); PLATELET COUNT, AUTOMATED 148 10^3/uL (150-450); RED BLOOD COUNT 4.72 10^6/uL (4.00-5.40); WHITE BLOOD COUNT 2.6 10^3/uL (4.0-10.0)
[2020-11-14] MEDS: METOPROLOL TART 25 MG TABLET PO SCH ×3 (05:12→21:18)
[2020-11-14 05:36] LABS: BLOOD UREA NITROGEN 22 MG/DL (7-18); CALCIUM LEVEL 10.7 MG/DL (8.5-10.1); CARBON DIOXIDE LEVEL 25 MEQ/L (21-32); CHLORIDE LEVEL 109 MEQ/L (98-107); CREATININE FOR GFR 0.91 MG/DL (0.55-1.30); GLOMERULAR FILTRATION RATE > 60.0 (>51); GLUCOSE, FASTING 210 MG/DL (70-100); MAGNESIUM LEVEL 1.9 MG/DL (1.8-2.4); PHOSPHORUS LEVEL 2.9 MG/DL (2.5-4.9); POTASSIUM SERUM 4.9 MEQ/L (3.5-5.1); SODIUM LEVEL 140 MEQ/L (136-145)
[2020-11-14] MEDS: ATORVASTATIN 20 MG TAB PO SCH (08:03)
[2020-11-14] MEDS: FUROSEMIDE 40MG/4ML VIAL (J1940) IV SCH (08:03)
[2020-11-14] MEDS: SERTRALINE 100 MG TAB PO SCH (08:06)
[2020-11-14] MEDS: busPIRone 5 MG TAB PO SCH ×3 (08:06→21:15)
[2020-11-14] MEDS: HumaLOG INSULIN (NovoLOG) PER UNIT SC SCH ×4 (08:06→21:00)
[2020-11-14] MEDS: dexameTHASONE 4 MG/ML 1ML VIAL (J1100 PER 1MG) IV SCH ×2 (08:14→21:15)
--- NOTE | 2020-11-14 08:30 | ECHO ---
ECHOCARDIOGRAM DATE OF PROCEDURE: 11/13/2020 Age: Gender: F Height: 170 cm Weight: 182 kg REFERRING PHYSICIAN: Galo Lopez MD INDICATION: Congestive heart failure MEASUREMENTS: IVS: 1.0 LV: 6.9 LVPW: 1.1 LA: 4.5 Aorta: 2.7 This study is of poor technical quality. There is underlying tachycardia with uncertain rhythm; I suspect most likely atrial fibrillation or atrial flutter with ventricular rate between 110 and 120 beats per minute. FINDINGS: Left ventricle is severely dilated. There is probably mild global hypokinesis based on limited views. I estimate ejection fraction (EF) around 40% to 50%. I certainly could easily miss segmental wall motion abnormalities. Right ventricle was poorly visualized but does not appear grossly enlarged .There is bi-atrial enlargement. Aortic valve is minimally sclerotic but mobility seems preserved. Mitral and tricuspid valves appear grossly normal. Pulmonic valve was not seen. Small pericardial effusion is noted without any signs of cardiac compression. Inferior vena cava is relatively small size and completely collapses with inspiration indicative of normal central venous pressure. Aortic root is normal. Aortic arch and abdominal aorta were not well seen. Doppler interrogation of aortic valve reveals no stenosis or insufficiency; there is mild mitral insufficiency and no tricuspid insufficiency. Evaluation of diastolic function is limited on account of irregular heart rhythm. CONCLUSIONS: 1. Study is of poor technical quality. Underlying irregular heart rhythm most likely atrial fibrillation or less likely flutter. 2. Dilated left ventricle with global hypokinesis and estimated ejection fraction (EF) around 40% to 50%. This is based on very poor quality images and I could have easily missed even substantial segmental wall motion abnormalities. 3. Right ventricle was poorly visualized but does not appear grossly dilated. 4. No hemodynamically significant valvular disease. 5. Small pericardial effusion. 6. Normal central venous pressure.
[2020-11-14] MEDS ORDERED: LACTULOSE 20 GM/30 ML SYRUP UD PO SCH (09:00)
--- NOTE | 2020-11-14 10:05 | IPNPDOC ---
Text Note Date of Service The patient was seen on 11/14/20. NOTE SUBJECTIVE: Patient is a 55-year-old female with a PMHx of CHF, Pulmonary HTN, and obesity presented to the ED complaining of generalized weakness, malaise, SOB and fevers for 1 week. She was diagnosed with Covid in the ER and found to have atrial fibrillation with RVR. She was admitted to hospitalist service for acute hypoxic respiratory failure and new onset A. fib with RVR. Patient was seen today lying in comfortably in bed on Vapotherm 40L FIO2 80%. No acute events overnight; patient has not needed to use bpap for the last 48 hrs. Her rate is more controlled this morning. Patient has no complaints and states that her breathing is improved. REVIEW OF SYSTEMS: CONSTITUTIONAL: denies fever, chills, night sweats HEENT: denies cough and sore throat RESPIRATORY: denies wheezing, shortness of breath CARDIOVASCULAR: denies chest pain, palpations GASTROINTESTINAL: + constipation; denies n/v/d, abdominal pain GENITOURINARY: denies burning with urination MUSCULOSKELETAL: + generalized myalgias SKIN: denies increased bruising or skin lesions NEURO: denies any numbness or tingling in her hands or feet PSYCH: no new changes in mood PHYSICAL EXAMINATION: VITAL SIGNS: Please see below. GENERAL: morbidly obese, in no acute distress, on Vapotherm saturating >90% HEENT: PERRLA, EOMI, mucous membranes moist CARDIOVASCULAR: tachycardic, regular rhythm; S1 S2; no murmur, rubs or gallops noted RESPIRATORY: coarse breath sounds; good air entry bilaterally, no wheezing noted ABDOMINAL: normal active bowel sounds; soft, nondistended, no tenderness with palpation EXTREMITIES: no pitting edema bilaterally; +2 dorsalis pedis palpated NEUROLOGICAL: Cranial nerves II through XII grossly intact; no focal neurologic deficits noted SKIN: no new rashes or skin lesions LABORATORY DATA, IMAGING STUDIES, MICROBIOLOGY: Please see below. IMPRESSION: 1. Acute hypoxic respiratory failure secondary to covid-19 with elevated inflammatory markers 2. Atrial fibrillation with RVR new onset rate more controlled today 3. Hx of diastolic CHF, BNP 6624 likely there is a component of cardiogenic pulmonary edema 4. Evidence of Pulmonary HTN on Echo (06/2018) likely group 2 5. Hx of Morbid obesity and ELIJAH noncompliant with PAP therapy 6. Hx of anxiety/depression PLAN: * Titrate down oxygen as tolerated, Keep oxygen saturations 88 to 96%; continue Vapotherm (currently stable); can D/C bpap order * Awake proning as much as tolerated and can give bronchodilators as needed * Continue remdesivir and steroids * barictinib PO 4mg daily x 14 days * Cardio consult, continue rate controlling medications * Procalcitonin <0.05 low suspicion for bacterial PNA, d/c'ed antibiotics * Continue with Lasix; diurese as tolerated, keep I=O * Start senna and MiraLAX to help with constipation * DVT prophylaxis: Therapeutic Lovenox * Full code * Pulm will sign off, recall as need VS,Fishbone, I+O VS, Fishbone, I+O Laboratory Tests 11/14/20 04:44 Vital Signs Date Time Temp Pulse Resp B/P (MAP) Pulse Ox O2 Delivery O2 Flow Rate FiO2 11/14/20 05:12 106 113/63 11/14/20 04:00 96.6 20 92 HVNI-Vapotherm 40.0 85 I&O- Last 24 Hours up to 6 AM 11/14/20 06:00 Intake Total 2700 ml Output Total 3955 ml Balance -1255 ml GME ATTESTATION GME ATTESTATION My faculty preceptor for this patient encounter was physically present during the encounter and was fully available. All aspects of the patient interview, examination, medical decision making process, and medical care plan development were reviewed and approved by the faculty preceptor. The faculty preceptor is aware and concurs with the plan as stated in the body of this note and will attest to such by his/her cosignature. ATTENDING NOTE I, Susu Marroquin, conducted an independent examination and history of the patient and was physically present and agree with the plan as detailed by resident and edited where necessary. Cindy Patel DO Nov 14, 2020 10:05 SUSU MARROQUIN MD Nov 14, 2020 10:30
[2020-11-14] MEDS: SENNA 8.6 MG TAB (SENOKOT) PO SCH (10:35)
[2020-11-14] MEDS: MIRALAX *UNIT DOSE* 17GM PACKET PO SCH (10:35)
[2020-11-14] MEDS ORDERED: DIGOXIN INJ 0.5 MG/2 ML AMP (J1160) IV ONE (11:40)
[2020-11-14] MEDS: BARICITINIB 2MG TABLET (OLUMIANT) FOR EUA PO SCH (12:09)
[2020-11-14] MEDS: ENOXAPARIN 120MG/0.8ML SYRINGE (J1650 PER 10MG) SC SCH ×2 (12:11→23:35)
[2020-11-14] MEDS ORDERED: METOPROLOL TART 25 MG TABLET PO ONE (14:55)
[2020-11-14] MEDS ORDERED: DIGOXIN 0.25 MG TAB PO ONE ×2 (15:10→21:00)
--- NOTE | 2020-11-14 16:52 | ECGEPIP ---
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 Electronically Signed on 11-14-2020 16:52:42 EDT by Ady Abrams
--- NOTE | 2020-11-14 17:34 | IPNPDOC ---
Date Seen The patient was seen on 11/14/20. Progress Note Subjective: HR uncontrolled today in 130s despite one dose digoxin. Cardiology consulted and will continue to load with digoxin, incr metoprolol. Patient anxious. Has not needed bipap, d/c. Has some pleuritic chest pain. Encouraging prone position awake and with sleep. Objective: Physical Examination VS: temp 97.6, HR 99-144 atrial fib, 125/83, 40 flow rate O2 HVNI vapotherm, 85%FiO2 General: Lying in bed, slightly anxious Head/Neck/Throat: Trachea midline, mucous membranes moist, large diameter neck Eyes: Sclera anicteric, no erythema Thorax: Normal respiratory effort on room air, lungs clear to auscultation bilaterally, no wheezes/rales/rhonchi Cardiovascular: irregularly irregular rhythm-afib with RVR, no rubs/gallops/murmurs Abdomen: Bowel sounds present, soft/nontender/nondistended Musculoskeletal: Moving all extremities, no edema Skin: Warm, dry Neurologic: AAOx3, speech fluent and goal-directed, no focal deficits, grossly intact LABS: Please see below A/P: #Acute hypoxic respiratory failure 2/2 to COVID-19, worsened by afib with RVR, anxiety -Procal low, low suspicion for PNA -C/w dexamethasone, remdesivir, baricitinib x 14 days, Vapotherm. Bipap not needed last 48 hrs, will d/c -Proning encourage, IS, bronchodilators as needed -Follow labs closely -Pulmonary has evaluated, see consult note #COVID-19 -Management as above #Atrial fibrillation with rapid ventricular response likely secondary to underlying respiratory distress -Incr BB, loading with digoxin, responded well to third dose. To receive another dose o 0.25 to complete total of 1 mg of digoxin. -Echo done -Cardiology consulted to follow #HFpEF with exacerbation -Neg fluid balance -Continue with IV furosemide 40 mg -Echo on file. -Daily weights, intake/output, 2 g sodium diet #Pulmonary hypertension -Echo on file -C/w current treatment #morbid obesity, likely obesity hypoventilation syndrome -Encourage healthier lifestyle -To f/u with PCP -Noncompliant with Cpap therapy #Anxiety/depression -Slightly anxious but refusing meds -Monitor -No HI/SI #DVT prophylaxis -On therapeutic Lovenox DISPOSITION: ICU currently. Plan undetermined for discharge at this time. TOTAL AMOUNT OF ICU TIME SPENT CARING FOR PATIENT: 35 mins VS, I&O, 24H, Fishbone Vital Signs/I&O Vital Signs Date Time Temp Pulse Resp B/P (MAP) Pulse Ox O2 Delivery O2 Flow Rate FiO2 11/14/20 17:00 99 91 HVNI-Vapotherm 40.0 85 11/14/20 15:30 125/83 11/14/20 15:27 97.6 20 I&O- Last 24 Hours up to 6 AM 11/14/20 06:00 Intake Total 3275 ml Output Total 3955 ml Balance -680 ml Laboratory Data 24H LABS Laboratory Tests 2 11/13/20 17:44: Bedside Glucose (Misc Panel) 184H 11/13/20 21:13: Bedside Glucose (Misc Panel) 169H 11/14/20 04:44: Nucleated Red Blood Cells % (auto) 0.0, Anion Gap 6L, Glomerular Filtration Rate > 60.0, Calcium Level 10.7H, Phosphorus Level 2.9, Magnesium Level 1.9 11/14/20 08:02: Bedside Glucose (Misc Panel) 176H 11/14/20 12:06: Bedside Glucose (Misc Panel) 187H 11/14/20 17:01: Bedside Glucose (Misc Panel) 223H CBC/BMP Laboratory Tests 11/14/20 04:44 Current Medications Current Medications Medications (Trade) Dose Ordered Sig/Neha Route PRN Reason Start Time Stop Time Status Last Admin Dose Admin Acetaminophen (Tylenol Tab) 650 mg Q4H PRN PO MILD PAIN or TEMP > 101 11/12/20 23:05 Al Hydrox/Mg Hydrox/Simethicone (Mylanta) 30 ml DAILY PRN PO DYSPEPSIA 11/12/20 23:05 Atorvastatin Calcium (Lipitor) 40 mg DAILY PO 11/14/20 09:00 11/14/20 08:03 Azithromycin 500 mg/IV Miscellaneous Supplies 1 each/ Sodium Chloride 255 ml @ 255 mls/hr Q24H IV 11/13/20 18:00 11/14/20 08:52 DC 11/13/20 17:12 Baricitinib (Olumiant) 4 mg DAILY PO 11/14/20 09:00 11/27/20 09:01 11/14/20 12:09 Buspirone HCl (Buspar) 7.5 mg TID PO 11/13/20 21:00 11/14/20 15:30 Ceftriaxone Sodium 1 gm/ Dextrose 50 ml @ 100 mls/hr Q24H IV 11/13/20 17:00 11/14/20 08:52 DC 11/13/20 16:23 Dexamethasone (Decadron) 6 mg Q12H IV 11/13/20 09:00 11/14/20 08:14 Dextrose (Dextrose 50%) 25 ml ASDIRECTED PRN IV SEE LABEL COMMENTS 11/13/20 17:30 Digoxin (Lanoxin) 0.25 mg STAT STAT IV 11/13/20 17:24 11/13/20 17:25 DC 11/13/20 17:40 Enoxaparin Sodium (Lovenox) 120 mg Q12H SC 11/13/20 00:00 11/14/20 12:11 Enoxaparin Sodium (Lovenox) 180 mg Q12H SC 11/12/20 23:15 11/13/20 00:17 DC Furosemide (LASIX injection) 40 mg BID@09,17 IV 11/13/20 09:00 11/13/20 12:05 DC 11/13/20 09:37 Furosemide (LASIX injection) 40 mg DAILY IV 11/14/20 09:00 11/14/20 08:03 Furosemide (LASIX injection) 40 mg Q8H IV 11/13/20 02:00 11/13/20 02:01 DC Glucagon (Glucagon) 1 mg ASDIRECTED PRN SC SEE LABEL COMMENTS 11/13/20 17:30 Glucose (Glucose) 16 GM ASDIRECTED PRN PO SEE LABEL COMMENTS 11/13/20 17:30 Home Med (Home Med List Complete!) ASDIRECTED XX 11/12/20 18:40 11/12/20 18:49 DC Insulin Human Lispro (HumaLOG INSULIN) SEE PROTOCOL TABLE AC SC 11/13/20 17:30 11/14/20 17:06 Insulin Human Lispro (HumaLOG INSULIN) SEE PROTOCOL TABLE QHS SC 11/13/20 21:00 Lactulose (Cephulac) 30 ml DAILY PO 11/14/20 09:00 11/14/20 09:10 DC Levalbuterol HCl (Xopenex Neb) 0.63 mg RQ4H INH 11/13/20 00:00 11/14/20 11:18 Magnesium Hydroxide (Milk Of Magnesia) 30 ml DAILY PRN PO CONSTIPATION 11/12/20 23:05 Metoprolol Tartrate (Lopressor) 5 mg Q5M IV 11/12/20 22:45 11/13/20 01:12 DC 11/13/20 00:24 Metoprolol Tartrate (Lopressor) 5 mg STAT STAT IV 11/12/20 21:45 11/12/20 21:46 DC 11/12/20 22:25 Metoprolol Tartrate (Lopressor) 25 mg Q8H PO 11/13/20 06:00 11/14/20 14:52 DC 11/14/20 13:33 Metoprolol Tartrate (Lopressor) 50 mg Q8H PO 11/14/20 22:00 Polyethylene Glycol (Miralax) 1 pkt DAILY PO 11/14/20 09:00 11/14/20 10:35 Remdesivir 100 mg/ Sodium Chloride 270 ml @ 270 mls/hr Q24H IV 11/13/20 23:00 11/17/20 22:59 11/13/20 22:18 Senna (Senokot) 2 tab DAILY PO 11/14/20 09:00 11/14/20 10:35 Sertraline HCl (Zoloft) 100 mg DAILY PO 11/14/20 09:00 11/14/20 08:06 Sodium Chloride (Saline Lock Flush) 30 ml Q24H IV 11/14/20 00:00 11/18/20 00:00 11/13/20 23:42 Allergies Coded Allergies: ciprofloxacin (Verified Allergy, Unknown, 11/12/20) Ivonne Worrell MD Nov 14, 2020 17:34
[2020-11-14] MEDS: REMDESIVIR 100 MG in NS 250 ML IV SCH (23:34)
[2020-11-15] VITALS (15 sets, daily range): BP systolic 111–129; BP diastolic 59–67; O2SAT 89–95
[2020-11-15] MEDS: SODIUM CHLORIDE 0.9% INJ 10 ML SYR IV SCH (01:00)
[2020-11-15] MEDS: LEVALBUTEROL 1.25 MG/0.5 ML CONCENTRATE NEB INH SCH ×5 (04:00→23:24)
[2020-11-15] MEDS: METOPROLOL TART 25 MG TABLET PO SCH ×3 (05:07→21:16)
[2020-11-15 05:32] LABS: HEMATOCRIT 41.7 % (36.0-47.0); HEMOGLOBIN 13.1 g/dl (12.0-15.5); MEAN CORPUSCULAR HEMOGLOBIN 27.3 pg (27.0-33.0); MEAN CORPUSCULAR HGB CONC 31.4 g/dl (32.0-36.5); MEAN CORPUSCULAR VOLUME 86.9 fl (80.0-96.0); PLATELET COUNT, AUTOMATED 170 10^3/uL (150-450); WHITE BLOOD COUNT 2.6 10^3/uL (4.0-10.0)
[2020-11-15 05:58] LABS: ALBUMIN 2.4 GM/DL (3.2-5.2); ALT/SGPT 52 U/L (12-78); BILIRUBIN,TOTAL 0.3 MG/DL (0.2-1.0); BLOOD UREA NITROGEN 28 MG/DL (7-18); C REACTIVE PROTEIN QUANTITATIV 1.72 MG/DL (0.00-0.30); CALCIUM LEVEL 10.8 MG/DL (8.5-10.1); CARBON DIOXIDE LEVEL 27 MEQ/L (21-32); CHLORIDE LEVEL 109 MEQ/L (98-107); CREATININE FOR GFR 0.86 MG/DL (0.55-1.30); GLOMERULAR FILTRATION RATE > 60.0 (>51); GLUCOSE, FASTING 218 MG/DL (70-100); POTASSIUM SERUM 4.7 MEQ/L (3.5-5.1); SODIUM LEVEL 138 MEQ/L (136-145); TOTAL PROTEIN 6.8 GM/DL (6.4-8.2)
[2020-11-15] MEDS: HumaLOG INSULIN (NovoLOG) PER UNIT SC SCH ×4 (08:53→21:00)
[2020-11-15] MEDS: FUROSEMIDE 40MG/4ML VIAL (J1940) IV SCH (08:54)
[2020-11-15] MEDS: MIRALAX *UNIT DOSE* 17GM PACKET PO SCH (08:54)
[2020-11-15] MEDS: dexameTHASONE 4 MG/ML 1ML VIAL (J1100 PER 1MG) IV SCH ×2 (08:54→21:17)
[2020-11-15] MEDS: BARICITINIB 2MG TABLET (OLUMIANT) FOR EUA PO SCH (08:55)
[2020-11-15] MEDS: SERTRALINE 100 MG TAB PO SCH (08:56)
[2020-11-15] MEDS: ATORVASTATIN 20 MG TAB PO SCH (08:56)
[2020-11-15] MEDS: SENNA 8.6 MG TAB (SENOKOT) PO SCH (08:56)
[2020-11-15] MEDS: busPIRone 5 MG TAB PO SCH ×3 (08:56→21:16)
[2020-11-15] MEDS: ENOXAPARIN 120MG/0.8ML SYRINGE (J1650 PER 10MG) SC SCH (12:53)
[2020-11-15] MEDS: DIGOXIN 0.25 MG TAB PO SCH (14:24)
[2020-11-15] MEDS ORDERED: DIGOXIN 0.125 MG TAB PO STA (14:55)
[2020-11-15] MEDS ORDERED: DIGOXIN INJ 0.5 MG/2 ML AMP (J1160) IV STA (15:02)
--- NOTE | 2020-11-15 16:28 | IPNPDOC ---
Date Seen The patient was seen on 11/15/20. Progress Note Subjective: Heart rate increased to 180, atrial fibrillation with RVR today despite loading doses on 11/14/2020 and taking daily digoxin dose. Discussed with cardiology who is already consulted. Digoxin level was checked and she was given additional digoxin for RVR episode. Respiratory status improving slowly. Denies chest pain, fevers or chills. Objective: Physical Examination VS: Please see below General: Lying in bed, slightly anxious Head/Neck/Throat: Trachea midline, mucous membranes moist, large diameter neck Eyes: Sclera anicteric, no erythema Thorax: lungs decreased but clear to auscultation bilaterally, no wheezes/rales/rhonchi Cardiovascular: irregularly irregular rhythm-afib with RVR, no rubs/gallops/murmurs Abdomen: Bowel sounds present, soft/nontender/nondistended Musculoskeletal: Moving all extremities, no edema Skin: Warm, dry Neurologic: AAOx3, speech fluent and goal-directed, no focal deficits, grossly intact LABS: Please see below A/P: #Acute hypoxic respiratory failure 2/2 to COVID-19, worsened by afib with RVR, anxiety -HVNI Vapotherm 40, FiO2 85% -Procal low, low suspicion for superimposed PNA -C/w dexamethasone, remdesivir (day 3), baricitinib (Day 2 of 14 ) Vapotherm. Bipap not needed last 48 hrs, will d/c -Proning encourage, IS, bronchodilators as needed -Follow labs closely -Inflammatory markers improving -Pulmonary following #COVID-19 -Management as above #Atrial fibrillation with rapid ventricular response likely secondary to un derlying respiratory infection -Despite receiving daily digoxin dose of 0.25 heart rate increased to 185 this afternoon. Additional digoxin dose given per cardiology's request and digoxin level sent. -Echo done -Tele -Cardiology consulted to follow #HFpEF with exacerbation -Neg fluid balance -Continue with IV furosemide 40 mg -Echo on file. -Daily weights, intake/output, 2 g sodium diet #Pulmonary hypertension -Echo on file -C/w current treatment #morbid obesity, likely obesity hypoventilation syndrome -Encourage healthier lifestyle -To f/u with PCP -Noncompliant with Cpap therapy #Anxiety/depression -stable -Monitor -No HI/SI #DVT prophylaxis -On therapeutic Lovenox DISPOSITION: Moved from ICU to COVID floor today. Plan is home at discharge. VS, I&O, 24H, Fishbone Vital Signs/I&O Vital Signs Date Time Temp Pulse Resp B/P (MAP) Pulse Ox O2 Delivery O2 Flow Rate FiO2 11/15/20 16:16 97.0 139 20 129/59 (82) 92 HVNI-Vapotherm 40.0 85 I&O- Last 24 Hours up to 6 AM 11/15/20 06:00 Intake Total 1980 ml Output Total 3595 ml Balance -1615 ml Laboratory Data 24H LABS Laboratory Tests 2 11/14/20 17:01: Bedside Glucose (Misc Panel) 223H 11/14/20 21:12: Bedside Glucose (Misc Panel) 166H 11/15/20 05:13: Nucleated Red Blood Cells % (auto) 0.0, Anion Gap 2L, Glomerular Filtration Rate > 60.0, Calcium Level 10.8H, Total Bilirubin 0.3, Aspartate Amino Transf (AST/SGOT) 28, Alanine Aminotransferase (ALT/SGPT) 52, Alkaline Phosphatase 116, C-Reactive Protein, Quantitative 1.72H, Total Protein 6.8, Albumin 2.4L, Albumin/Globulin Ratio 0.5L 11/15/20 12:42: Bedside Glucose (Misc Panel) 184H 11/15/20 15:28: CBC/BMP Laboratory Tests 11/15/20 05:13 Ivonne Worrell MD Nov 15, 2020 16:27
[2020-11-15] MEDS: REMDESIVIR 100 MG in NS 250 ML IV SCH (23:00)
[2020-11-16] VITALS (7 sets, daily range): BP systolic 112–125; BP diastolic 55–64
[2020-11-16] MEDS: SODIUM CHLORIDE 0.9% INJ 10 ML SYR IV SCH (00:34)
[2020-11-16] MEDS: ENOXAPARIN 120MG/0.8ML SYRINGE (J1650 PER 10MG) SC SCH ×3 (00:34→23:32)
[2020-11-16] MEDS: LEVALBUTEROL 1.25 MG/0.5 ML CONCENTRATE NEB INH SCH ×6 (03:54→23:40)
[2020-11-16] MEDS: METOPROLOL TART 25 MG TABLET PO SCH ×3 (05:08→21:20)
[2020-11-16 06:11] LABS: HEMATOCRIT 44.1 % (36.0-47.0); HEMOGLOBIN 14.1 g/dl (12.0-15.5); MEAN CORPUSCULAR HEMOGLOBIN 27.9 pg (27.0-33.0); MEAN CORPUSCULAR VOLUME 87.2 fl (80.0-96.0); PLATELET COUNT, AUTOMATED 222 10^3/uL (150-450); RED BLOOD COUNT 5.06 10^6/uL (4.00-5.40); WHITE BLOOD COUNT 3.9 10^3/uL (4.0-10.0)
[2020-11-16 06:37] LABS: ALBUMIN 2.4 GM/DL (3.2-5.2); ALT/SGPT 43 U/L (12-78); BILIRUBIN,TOTAL 0.4 MG/DL (0.2-1.0); BLOOD UREA NITROGEN 34 MG/DL (7-18); C REACTIVE PROTEIN QUANTITATIV 0.81 MG/DL (0.00-0.30); CALCIUM LEVEL 10.7 MG/DL (8.5-10.1); CARBON DIOXIDE LEVEL 25 MEQ/L (21-32); CHLORIDE LEVEL 105 MEQ/L (98-107); CREATININE FOR GFR 0.89 MG/DL (0.55-1.30); GLOMERULAR FILTRATION RATE > 60.0 (>51); GLUCOSE, FASTING 231 MG/DL (70-100); POTASSIUM SERUM 4.8 MEQ/L (3.5-5.1); SODIUM LEVEL 135 MEQ/L (136-145); TOTAL PROTEIN 6.9 GM/DL (6.4-8.2)
[2020-11-16] MEDS: MIRALAX *UNIT DOSE* 17GM PACKET PO SCH (09:00)
[2020-11-16] MEDS: SENNA 8.6 MG TAB (SENOKOT) PO SCH (09:00)
[2020-11-16] MEDS ORDERED: LEVEMIR (INSULIN DETEMIR) 1 UNITS/0.01ML SC SCH (09:00)
[2020-11-16] MEDS: dexameTHASONE 4 MG/ML 1ML VIAL (J1100 PER 1MG) IV SCH ×2 (09:26→21:28)
[2020-11-16] MEDS: ATORVASTATIN 20 MG TAB PO SCH (09:27)
[2020-11-16] MEDS: SERTRALINE 100 MG TAB PO SCH (09:28)
[2020-11-16] MEDS: BARICITINIB 2MG TABLET (OLUMIANT) FOR EUA PO SCH (09:28)
[2020-11-16] MEDS: FUROSEMIDE 40MG/4ML VIAL (J1940) IV SCH (09:29)
[2020-11-16] MEDS: busPIRone 5 MG TAB PO SCH ×3 (09:29→21:28)
[2020-11-16] MEDS: HumaLOG INSULIN (NovoLOG) PER UNIT SC SCH ×4 (10:51→21:00)
--- NOTE | 2020-11-16 18:16 | IPNPDOC ---
Date Seen The patient was seen on 11/16/20. Progress Note Subjective: HR better controlled today. Remains on FiO2 85%. Respiratory status improving slowly. Denies chest pain, fevers or chills. Objective: Physical Examination VS: Please see below General: Lying in bed, slightly anxious Head/Neck/Throat: Trachea midline, mucous membranes moist, large diameter neck Eyes: Sclera anicteric, no erythema Thorax: lungs decreased but clear to auscultation bilaterally- slightly improved, no wheezes/rales/rhonchi Cardiovascular: irregularly irregular rhythm-afib , no rubs/gallops/murmurs Abdomen: Bowel sounds present, soft/nontender/nondistended Musculoskeletal: Moving all extremities, no edema Skin: Warm, dry Neurologic: AAOx3, speech fluent and goal-directed, no focal deficits, grossly intact LABS: Please see below A/P: #Acute hypoxic respiratory failure 2/2 to COVID-19, worsened by afib with RVR, anxiety -HVNI Vapotherm 40, FiO2 85% -Procal low, low suspicion for superimposed PNA -C/w dexamethasone, remdesivir (day 4), baricitinib (Day 3 of 14 ) Vapotherm. -Proning encourage, IS, bronchodilators as needed -Follow labs closely -Inflammatory markers improving -Pulmonary following #COVID-19 -Management as above #Atrial fibrillation with rapid ventricular response likely secondary to underlying respiratory infection -HR slightly lower today in low 60's. -Echo done -Tele -C/w current digoxin dose -Cardiology consulted #HFpEF with exacerbation -Neg fluid balance -Continue with IV furosemide 40 mg -Echo on file. -Daily weights, intake/output, 2 g sodium diet #Pulmonary hypertension -Echo on file -C/w current treatment #morbid obesity, likely obesity hypoventilation syndrome -Encourage healthier lifestyle -To f/u with PCP -Noncompliant with Cpap therapy #Anxiety/depression -stable -Monitor -No HI/SI #DVT prophylaxis -On therapeutic Lovenox DISPOSITION: PT ordered. Plan is home at discharge. VS, I&O, 24H, Fishbone Vital Signs/I&O Vital Signs Date Time Temp Pulse Resp B/P (MAP) Pulse Ox O2 Delivery O2 Flow Rate FiO2 11/16/20 17:43 62 16 95 HVNI-Vapotherm 40.0 85 11/16/20 14:43 122/58 (79) 11/16/20 11:52 96.4 I&O- Last 24 Hours up to 6 AM 11/16/20 06:00 Intake Total 1825 ml Output Total 3550 ml Balance -1725 ml Laboratory Data 24H LABS Laboratory Tests 2 11/15/20 21:08: Bedside Glucose (Misc Panel) 180H 11/16/20 05:23: Anion Gap 5L, Glomerular Filtration Rate > 60.0, Calcium Level 10.7H, Total Bili springer 0.4, Aspartate Amino Transf (AST/SGOT) 16, Alanine Aminotransferase (ALT/SGPT) 43, Alkaline Phosphatase 106, C-Reactive Protein, Quantitative 0.81H, Total Protein 6.9, Albumin 2.4L, Albumin/Globulin Ratio 0.5L 11/16/20 05:48: Nucleated Red Blood Cells % (auto) 0.0 11/16/20 06:40: Bedside Glucose (Misc Panel) 209H 11/16/20 11:48: Bedside Glucose (Misc Panel) 251H 11/16/20 16:34: Bedside Glucose (Misc Panel) 248H CBC/BMP Laboratory Tests 11/16/20 05:23 11/16/20 05:48 Ivonne Worrell MD Nov 16, 2020 18:16
[2020-11-16] MEDS: DIGOXIN 0.25 MG TAB PO SCH (18:20)
[2020-11-16] MEDS: REMDESIVIR 100 MG in NS 250 ML IV SCH (23:32)
[2020-11-17] MEDS: SODIUM CHLORIDE 0.9% INJ 10 ML SYR IV SCH (00:02)
[2020-11-17 04:00] VITALS: BP 113/55
[2020-11-17] MEDS: LEVALBUTEROL 1.25 MG/0.5 ML CONCENTRATE NEB INH SCH ×5 (04:06→18:24)
[2020-11-17] MEDS: METOPROLOL TART 25 MG TABLET PO SCH ×3 (05:28→21:09)
[2020-11-17] MEDS: busPIRone 5 MG TAB PO SCH ×3 (08:17→21:17)
[2020-11-17] MEDS: SERTRALINE 100 MG TAB PO SCH (08:17)
[2020-11-17] MEDS: ATORVASTATIN 20 MG TAB PO SCH (08:17)
[2020-11-17] MEDS: BARICITINIB 2MG TABLET (OLUMIANT) FOR EUA PO SCH (08:18)
[2020-11-17] MEDS: FUROSEMIDE 40MG/4ML VIAL (J1940) IV SCH (08:23)
[2020-11-17] MEDS: dexameTHASONE 4 MG/ML 1ML VIAL (J1100 PER 1MG) IV SCH ×2 (08:23→21:17)
[2020-11-17] MEDS: HumaLOG INSULIN (NovoLOG) PER UNIT SC SCH ×4 (08:24→20:00)
[2020-11-17 08:25] VITALS: BP 119/59
[2020-11-17] MEDS: MIRALAX *UNIT DOSE* 17GM PACKET PO SCH (08:25)
[2020-11-17] MEDS: LEVEMIR (INSULIN DETEMIR) 1 UNITS/0.01ML SC SCH (08:25)
[2020-11-17] MEDS: SENNA 8.6 MG TAB (SENOKOT) PO SCH (08:25)
[2020-11-17 08:37] LABS: HEMATOCRIT 42.7 % (36.0-47.0); HEMOGLOBIN 13.2 g/dl (12.0-15.5); MEAN CORPUSCULAR HGB CONC 30.9 g/dl (32.0-36.5); MEAN CORPUSCULAR VOLUME 87.5 fl (80.0-96.0); PLATELET COUNT, AUTOMATED 216 10^3/uL (150-450); RED BLOOD COUNT 4.88 10^6/uL (4.00-5.40); WHITE BLOOD COUNT 5.1 10^3/uL (4.0-10.0)
[2020-11-17 09:13] LABS: ALBUMIN 2.6 GM/DL (3.2-5.2); ALT/SGPT 36 U/L (12-78); BILIRUBIN,TOTAL 0.4 MG/DL (0.2-1.0); BLOOD UREA NITROGEN 31 MG/DL (7-18); C REACTIVE PROTEIN QUANTITATIV 0.45 MG/DL (0.00-0.30); CALCIUM LEVEL 10.5 MG/DL (8.5-10.1); CARBON DIOXIDE LEVEL 25 MEQ/L (21-32); CHLORIDE LEVEL 103 MEQ/L (98-107); CREATININE FOR GFR 0.77 MG/DL (0.55-1.30); FERRITIN 791 NG/ML (8-252); GLOMERULAR FILTRATION RATE > 60.0 (>51); GLUCOSE, FASTING 175 MG/DL (70-100); LDH LACTATE DEHYDROGENASE 264 U/L (84-246); POTASSIUM SERUM 4.7 MEQ/L (3.5-5.1); SODIUM LEVEL 137 MEQ/L (136-145); TOTAL PROTEIN 6.3 GM/DL (6.4-8.2)
[2020-11-17 09:15] LABS: D-DIMER QUANT 789.84 ng/ml (<500)
[2020-11-17 12:45] VITALS: BP 148/67
[2020-11-17] MEDS: ENOXAPARIN 120MG/0.8ML SYRINGE (J1650 PER 10MG) SC SCH ×2 (12:45→23:50)
[2020-11-17] MEDS ORDERED: DIGOXIN 0.25 MG TAB PO SCH (13:00)
[2020-11-17 14:30] VITALS: BP 128/62
--- NOTE | 2020-11-17 17:00 | IPNPDOC ---
Date Seen The patient was seen on 11/17/20. Progress Note Subjective: HR controlled, no new events overnight. Remains on FiO2 85%. Respiratory status improving slowly. Denies chest pain, fevers or chills. Objective: Physical Examination VS: Please see below General: Lying in bed, slightly anxious Head/Neck/Throat: Trachea midline, mucous membranes moist, large diameter neck Eyes: Sclera anicteric, no erythema Thorax: lungs decreased bilaterally, no wheezes/rales/rhonchi Cardiovascular: irregularly irregular rhythm-afib , no rubs/gallops/murmurs Abdomen: Bowel sounds present, soft/nontender/nondistended Musculoskeletal: Moving all extremities, no edema Skin: Warm, dry Neurologic: AAOx3, speech fluent and goal-directed, no focal deficits, grossly intact LABS: Please see below A/P: #Acute hypoxic respiratory failure 2/2 to COVID-19 -HVNI Vapotherm 30- decreasing from 40, FiO2 85% -Procal low, low suspicion for superimposed PNA -C/w dexamethasone, remdesivir (day 5), baricitinib (Day 4), Vapotherm. -Proning encourage, IS, bronchodilators as needed -Follow labs closely -Inflammatory markers improving -Pulmonary has evaluated, see note #COVID-19 -Management as above #Atrial fibrillation likely secondary to underlying respiratory infection, resolved RVR -HR stable -Echo done -Tele -C/w current digoxin dose -Cardiology has seen #HFpEF with exacerbation -Neg fluid balance -Continue with IV furosemide 40 mg -Echo on file. -Daily weights, intake/output, 2 g sodium diet #Pulmonary hypertension -Echo on file -C/w current treatment #morbid obesity, likely obesity hypoventilation syndrome -Noncompliant with Cpap therapy #Anxiety/depression -stable -Monitor -No HI/SI #DVT prophylaxis -On therapeutic Lovenox DISPOSITION: Plan is home at discharge. VS, I&O, 24H, Fishbone Vital Signs/I&O Vital Signs Date Time Temp Pulse Resp B/P (MAP) Pulse Ox O2 Delivery O2 Flow Rate FiO2 11/17/20 14:30 98.4 65 18 128/62 (84) 90 HVNI-Vapotherm 30.0 85 I&O- Last 24 Hours up to 6 AM 11/17/20 06:00 Intake Total 1490 ml Output Total 3475 ml Balance -1985 ml Laboratory Data 24H LABS Laboratory Tests 2 11/16/20 21:14: Bedside Glucose (Misc Panel) 242H 11/17/20 07:26: Nucleated Red Blood Cells % (auto) 0.0, Fibrinogen 422, D-Dimer, Quantitative 789.84H, Anion Gap 9, Glomerular Filtration Rate > 60.0, Calcium Level 10.5H, Ferritin 791H, Total Bilirubin 0.4, Aspartate Amino Transf (AST/SGOT) 11, Alanine Aminotransferase (ALT/SGPT) 36, Alkaline Phosphatase 96, Lactate Dehydrogenase 264H, C-Reactive Protein, Quantitative 0.45H, Total Protein 6.3L, Albumin 2.6L, Albumin/Globulin Ratio 0.7L 11/17/20 08:13: Bedside Glucose (Misc Panel) 159H 11/17/20 12:40: Bedside Glucose (Misc Panel) 222H CBC/BMP Laboratory Tests 11/17/20 07:26 Ivonne Worrell MD Nov 17, 2020 17:00
[2020-11-17 20:00] VITALS: BP 116/53
[2020-11-18] VITALS (19 sets, daily range): BP systolic 107–133; BP diastolic 51–65; O2SAT 92–98
[2020-11-18] MEDS: SODIUM CHLORIDE 0.9% INJ 10 ML SYR IV SCH (00:02)
[2020-11-18] MEDS: LEVALBUTEROL 1.25 MG/0.5 ML CONCENTRATE NEB INH SCH ×7 (00:11→23:24)
[2020-11-18] MEDS: METOPROLOL TART 25 MG TABLET PO SCH ×4 (05:42→22:00)
[2020-11-18 07:57] LABS: HEMATOCRIT 43.1 % (36.0-47.0); HEMOGLOBIN 13.4 g/dl (12.0-15.5); MEAN CORPUSCULAR HEMOGLOBIN 27.4 pg (27.0-33.0); MEAN CORPUSCULAR HGB CONC 31.1 g/dl (32.0-36.5); MEAN CORPUSCULAR VOLUME 88.1 fl (80.0-96.0); PLATELET COUNT, AUTOMATED 204 10^3/uL (150-450); RED BLOOD COUNT 4.89 10^6/uL (4.00-5.40)
[2020-11-18 08:27] LABS: ALBUMIN 2.6 GM/DL (3.2-5.2); ALT/SGPT 31 U/L (12-78); BILIRUBIN,TOTAL 0.4 MG/DL (0.2-1.0); BLOOD UREA NITROGEN 30 MG/DL (7-18); C REACTIVE PROTEIN QUANTITATIV 0.47 MG/DL (0.00-0.30); CALCIUM LEVEL 10.5 MG/DL (8.5-10.1); CARBON DIOXIDE LEVEL 27 MEQ/L (21-32); CHLORIDE LEVEL 103 MEQ/L (98-107); CREATININE FOR GFR 0.74 MG/DL (0.55-1.30); GLOMERULAR FILTRATION RATE > 60.0 (>51); GLUCOSE, FASTING 206 MG/DL (70-100); POTASSIUM SERUM 4.7 MEQ/L (3.5-5.1); SODIUM LEVEL 135 MEQ/L (136-145); TOTAL PROTEIN 6.2 GM/DL (6.4-8.2)
[2020-11-18] MEDS: LEVEMIR (INSULIN DETEMIR) 1 UNITS/0.01ML SC SCH (08:42)
[2020-11-18] MEDS: HumaLOG INSULIN (NovoLOG) PER UNIT SC SCH ×4 (08:42→22:57)
[2020-11-18] MEDS: FUROSEMIDE 40MG/4ML VIAL (J1940) IV SCH (08:42)
[2020-11-18] MEDS: dexameTHASONE 4 MG/ML 1ML VIAL (J1100 PER 1MG) IV SCH ×2 (08:42→22:56)
[2020-11-18] MEDS: busPIRone 5 MG TAB PO SCH ×3 (08:43→22:56)
[2020-11-18] MEDS: ATORVASTATIN 20 MG TAB PO SCH (08:43)
[2020-11-18] MEDS: SERTRALINE 100 MG TAB PO SCH (08:43)
[2020-11-18] MEDS: BARICITINIB 2MG TABLET (OLUMIANT) FOR EUA PO SCH (08:44)
[2020-11-18] MEDS: MIRALAX *UNIT DOSE* 17GM PACKET PO SCH (08:45)
[2020-11-18] MEDS: SENNA 8.6 MG TAB (SENOKOT) PO SCH (08:45)
[2020-11-18 08:51] LABS: DIGOXIN LEVEL 0.8 NG/ML (0.5-2.0)
[2020-11-18] MEDS ORDERED: DIGOXIN INJ 0.5 MG/2 ML AMP (J1160) IV SCH (09:00)
[2020-11-18] MEDS ORDERED: DIGOXIN 0.125 MG TAB PO SCH (09:00)
[2020-11-18] MEDS: ENOXAPARIN 120MG/0.8ML SYRINGE (J1650 PER 10MG) SC SCH (13:11)
--- NOTE | 2020-11-18 17:56 | IPNPDOC ---
Date Seen The patient was seen on 11/18/20. Progress Note Subjective: No new events overnight. Remains on FiO2 80%. Respiratory status improving slowly. Denies chest pain, fevers or chills. Objective: Physical Examination VS: Please see below General: Lying in bed, slightly anxious Head/Neck/Throat: Trachea midline, mucous membranes moist, large diameter neck Eyes: Sclera anicteric, no erythema Thorax: lungs decreased bilaterally, no wheezes/rales/rhonchi Cardiovascular: irregularly irregular rhythm-afib , no rubs/gallops/murmurs Abdomen: Bowel sounds present, soft/nontender/nondistended Musculoskeletal: Moving all extremities, no edema Skin: Warm, dry Neurologic: AAOx3, speech fluent and goal-directed, no focal deficits, grossly intact LABS: Please see below A/P: #Acute hypoxic respiratory failure 2/2 to COVID-19 -HVNI Vapotherm 30- decreasing from 40, FiO2 80% -Procal low, low suspicion for superimposed PNA -C/w dexamethasone, remdesivir (day 5), baricitinib (Day 4), Vapotherm. -Proning encourage, IS, bronchodilators as needed -Follow labs closely -Inflammatory markers improving -Pulmonary has evaluated, see note #COVID-19 -Management as above #Atrial fibrillation likely secondary to underlying respiratory infection, resolved RVR -Bradycardia at times. -Echo done -Tele -decreased digoxin dose -Cardiology has seen #HFpEF with exacerbation -Neg fluid balance -Continue with IV furosemide 40 mg -Echo on file. -Daily weights, intake/output, 2 g sodium diet #Pulmonary hypertension -Echo on file -C/w current treatment #morbid obesity, likely obesity hypoventilation syndrome -Noncompliant with Cpap therapy #Anxiety/depression -stable -Monitor -No HI/SI #DVT prophylaxis -On therapeutic Lovenox DISPOSITION: Plan is home at discharge. VS, I&O, 24H, Fishbone Vital Signs/I&O Vital Signs Date Time Temp Pulse Resp B/P (MAP) Pulse Ox O2 Delivery O2 Flow Rate FiO2 11/18/20 16:00 94 30.0 70 11/18/20 16:00 99.1 54 18 119/58 (78) HVNI-Vapotherm I&O- Last 24 Hours up to 6 AM 11/18/20 06:00 Intake Total 1450 ml Output Total 3400 ml Balance -1950 ml Laboratory Data 24H LABS Laboratory Tests 2 11/17/20 18:14: Bedside Glucose (Misc Panel) 199H 11/17/20 19:57: Bedside Glucose (Misc Panel) 206H 11/18/20 06:42: Nucleated Red Blood Cells % (auto) 0.0, Anion Gap 5L, Glomerular Filtration Rate > 60.0, Calcium Level 10.5H, Total Bilirubin 0.4, Aspartate Amino Transf (AST/SGOT) 10, Alanine Aminotransferase (ALT/SGPT) 31, Alkaline Phosphatase 89, C-Reactive Protein, Quantitative 0.47H, Total Protein 6.2L, Albumin 2.6L, Albumin/Globulin Ratio 0.7L, Digoxin Level 0.8 11/18/20 07:52: Bedside Glucose (Misc Panel) 182H 11/18/20 13:08: Bedside Glucose (Misc Panel) 246H 11/18/20 16:44: Bedside Glucose (Misc Panel) 280H CBC/BMP Laboratory Tests 11/18/20 06:42 Ivonne Worrell MD Nov 18, 2020 17:56
[2020-11-19] VITALS (20 sets, daily range): BP systolic 106–142; BP diastolic 51–67; O2SAT 90–97
[2020-11-19] MEDS: ENOXAPARIN 120MG/0.8ML SYRINGE (J1650 PER 10MG) SC SCH ×2 (01:00→12:37)
[2020-11-19] MEDS: LEVALBUTEROL 1.25 MG/0.5 ML CONCENTRATE NEB INH SCH ×6 (03:30→23:33)
[2020-11-19] MEDS: METOPROLOL TART 25 MG TABLET PO SCH ×3 (05:26→21:06)
[2020-11-19 08:28] LABS: HEMATOCRIT 42.3 % (36.0-47.0); HEMOGLOBIN 13.2 g/dl (12.0-15.5); MEAN CORPUSCULAR HEMOGLOBIN 27.2 pg (27.0-33.0); MEAN CORPUSCULAR HGB CONC 31.2 g/dl (32.0-36.5); PLATELET COUNT, AUTOMATED 181 10^3/uL (150-450); RED BLOOD COUNT 4.86 10^6/uL (4.00-5.40)
[2020-11-19] MEDS: MIRALAX *UNIT DOSE* 17GM PACKET PO SCH (09:00)
[2020-11-19] MEDS: SENNA 8.6 MG TAB (SENOKOT) PO SCH (09:00)
[2020-11-19 09:01] LABS: ALBUMIN 2.5 GM/DL (3.2-5.2); ALT/SGPT 30 U/L (12-78); BILIRUBIN,TOTAL 0.4 MG/DL (0.2-1.0); BLOOD UREA NITROGEN 27 MG/DL (7-18); CALCIUM LEVEL 10.2 MG/DL (8.5-10.1); CARBON DIOXIDE LEVEL 27 MEQ/L (21-32); CHLORIDE LEVEL 104 MEQ/L (98-107); CREATININE FOR GFR 0.75 MG/DL (0.55-1.30); GLOMERULAR FILTRATION RATE > 60.0 (>51); GLUCOSE, FASTING 215 MG/DL (70-100); SODIUM LEVEL 137 MEQ/L (136-145); TOTAL PROTEIN 6.1 GM/DL (6.4-8.2)
[2020-11-19] MEDS: LEVEMIR (INSULIN DETEMIR) 1 UNITS/0.01ML SC SCH (09:22)
[2020-11-19] MEDS: HumaLOG INSULIN (NovoLOG) PER UNIT SC SCH ×4 (09:22→21:19)
[2020-11-19] MEDS: FUROSEMIDE 40MG/4ML VIAL (J1940) IV SCH (09:23)
[2020-11-19] MEDS: busPIRone 5 MG TAB PO SCH ×3 (09:24→21:20)
[2020-11-19] MEDS: dexameTHASONE 4 MG/ML 1ML VIAL (J1100 PER 1MG) IV SCH ×2 (09:24→21:18)
[2020-11-19] MEDS: SERTRALINE 100 MG TAB PO SCH (09:25)
[2020-11-19] MEDS: ATORVASTATIN 20 MG TAB PO SCH (09:25)
[2020-11-19] MEDS: BARICITINIB 2MG TABLET (OLUMIANT) FOR EUA PO SCH (09:25)
--- NOTE | 2020-11-19 15:11 | IPNPDOC ---
Date Seen The patient was seen on 11/19/20. Progress Note Subjective: Continues to make good progress coming down on O2. Currently FiO2 60, flow rate 25, saturating at 94%. Denies chest pain, fevers or chills. Objective: Physical Examination VS: Please see below General: Lying in bed, NAD Head/Neck/Throat: Trachea midline, mucous membranes moist, large diameter neck, cannula in place Eyes: Sclera anicteric, no erythema Thorax: lungs decreased bilaterally, no wheezes/rales/rhonchi Cardiovascular: irregularly irregular rhythm-afib , no rubs/gallops/murmurs Abdomen: obese abd, bowel sounds present, soft/nontender/nondistended Musculoskeletal: Moving all extremities, no edema Skin: Warm, dry Neurologic: AAOx3, speech fluent and goal-directed, no focal deficits, grossly intact LABS: Please see below A/P: #Acute hypoxic respiratory failure 2/2 to COVID-19 -HVNI Vapotherm - further improving -Procal low, low suspicion for superimposed PNA -C/w dexamethasone, baricitinib (Day 6), Vapotherm. Completed 5 days remdesivir. -Proning encourage, IS, bronchodilators as needed -Follow labs closely -Inflammatory markers improving -Pulmonary has evaluated, see note #COVID-19 -Management as above #Atrial fibrillation likely secondary to underlying respiratory infection, resolved RVR -Bradycardia and NSR, likely atrial fib from infection only -Echo done -Tele -F/u new ECG today -decreased digoxin dose, discuss whether to keep or stop completely -Cardiology has seen #HFpEF with exacerbation -Neg fluid balance -Continue with IV furosemide 40 mg -Echo on file. -Daily weights, intake/output, 2 g sodium diet #Pulmonary hypertension -Echo on file -C/w current treatment #morbid obesity, likely obesity hypoventilation syndrome -Noncompliant with Cpap therapy #Anxiety/depression -stable -Monitor -No HI/SI #DVT prophylaxis -On therapeutic Lovenox DISPOSITION: Plan is home at discharge when medically improved . VS, I&O, 24H, Fishbone Vital Signs/I&O Vital Signs Date Time Temp Pulse Resp B/P (MAP) Pulse Ox O2 Delivery O2 Flow Rate FiO2 11/19/20 13:02 63 122/60 11/19/20 12:41 95 HVNI-Vapotherm 25.0 60 11/19/20 12:00 97.4 20 l I&O- Last 24 Hours up to 6 AM 11/19/20 06:00 Intake Total 1380 ml Output Total 750 ml Balance 630 ml Laboratory Data 24H LABS Laboratory Tests 2 11/18/20 16:44: Bedside Glucose (Misc Panel) 280H 11/18/20 22:50: Bedside Glucose (Misc Panel) 256H 11/19/20 06:51: Nucleated Red Blood Cells % (auto) 0.0, Anion Gap 6L, Glomerular Filtration Rate > 60.0, Calcium Level 10.2H, Total Bilirubin 0.4, Aspartate Amino Transf (AST/SGOT) 10, Alanine Aminotransferase (ALT/SGPT) 30, Alkaline Phosphatase 83, Total Protein 6.1L, Albumin 2.5L, Albumin/Globulin Ratio 0.7L 11/19/20 12:34: Bedside Glucose (Misc Panel) 247H CBC/BMP Laboratory Tests 11/19/20 06:51 Ivonne Worrell MD Nov 19, 2020 15:11
[2020-11-20] MEDS: ENOXAPARIN 120MG/0.8ML SYRINGE (J1650 PER 10MG) SC SCH ×2 (00:19→12:31)
[2020-11-20] MEDS: LEVALBUTEROL 1.25 MG/0.5 ML CONCENTRATE NEB INH SCH ×6 (03:34→23:21)
[2020-11-20 04:00] VITALS: BP 111/56
[2020-11-20] MEDS: METOPROLOL TART 25 MG TABLET PO SCH (06:00)
[2020-11-20 08:00] VITALS: BP 113/56; O2SAT 96
[2020-11-20] MEDS: MIRALAX *UNIT DOSE* 17GM PACKET PO SCH (09:00)
[2020-11-20] MEDS: SENNA 8.6 MG TAB (SENOKOT) PO SCH (09:00)
[2020-11-20] MEDS: BARICITINIB 2MG TABLET (OLUMIANT) FOR EUA PO SCH (09:06)
[2020-11-20] MEDS: LEVEMIR (INSULIN DETEMIR) 1 UNITS/0.01ML SC SCH (09:07)
[2020-11-20] MEDS: HumaLOG INSULIN (NovoLOG) PER UNIT SC SCH ×4 (09:07→21:05)
[2020-11-20] MEDS: dexameTHASONE 4 MG/ML 1ML VIAL (J1100 PER 1MG) IV SCH ×2 (09:07→21:05)
[2020-11-20] MEDS: busPIRone 5 MG TAB PO SCH ×3 (09:08→21:04)
[2020-11-20] MEDS: SERTRALINE 100 MG TAB PO SCH (09:08)
[2020-11-20] MEDS: ATORVASTATIN 20 MG TAB PO SCH (09:08)
[2020-11-20] MEDS: FUROSEMIDE 40MG/4ML VIAL (J1940) IV SCH (09:09)
[2020-11-20 10:23] LABS: HEMATOCRIT 44.7 % (36.0-47.0); HEMOGLOBIN 13.8 g/dl (12.0-15.5); MEAN CORPUSCULAR HEMOGLOBIN 27.5 pg (27.0-33.0); MEAN CORPUSCULAR HGB CONC 30.9 g/dl (32.0-36.5); PLATELET COUNT, AUTOMATED 191 10^3/uL (150-450); RED BLOOD COUNT 5.02 10^6/uL (4.00-5.40); WHITE BLOOD COUNT 5.8 10^3/uL (4.0-10.0)
[2020-11-20 10:53] LABS: ALBUMIN 2.8 GM/DL (3.2-5.2); ALT/SGPT 31 U/L (12-78); BILIRUBIN,TOTAL 0.6 MG/DL (0.2-1.0); BLOOD UREA NITROGEN 28 MG/DL (7-18); CALCIUM LEVEL 10.7 MG/DL (8.5-10.1); CARBON DIOXIDE LEVEL 30 MEQ/L (21-32); CHLORIDE LEVEL 102 MEQ/L (98-107); CREATININE FOR GFR 0.75 MG/DL (0.55-1.30); GLOMERULAR FILTRATION RATE > 60.0 (>51); GLUCOSE, FASTING 241 MG/DL (70-100); POTASSIUM SERUM 4.4 MEQ/L (3.5-5.1); SODIUM LEVEL 135 MEQ/L (136-145); TOTAL PROTEIN 6.4 GM/DL (6.4-8.2)
[2020-11-20 12:00] VITALS: BP 121/62; O2SAT 93
[2020-11-20 16:00] VITALS: BP 124/68; O2SAT 96
--- NOTE | 2020-11-20 17:52 | IPNPDOC ---
Date Seen The patient was seen on 11/20/20. Progress Note Subjective: Continues to improve daily, today off Vapotherm and on NC. Denies chest pain, fevers or chills. Objective: Physical Examination VS: Please see below General: Lying in bed, NAD Head/Neck/Throat: Trachea midline, mucous membranes moist, large diameter neck, cannula in place Eyes: Sclera anicteric, no erythema Thorax: lungs decreased bilaterally but aeration overall improved, no wheezes/rales/rhonchi Cardiovascular: irregularly irregular rhythm-afib , no rubs/gallops/murmurs Abdomen: obese abd, bowel sounds present, soft/nontender/nondistended Musculoskeletal: Moving all extremities, no edema Skin: Warm, dry Neurologic: AAOx3, speech fluent and goal-directed, no focal deficits, grossly intact LABS: Please see below A/P: #Acute hypoxic respiratory failure 2/2 to COVID-19 -HVNI Vapotherm --> NC today- improving daily. -Procal low, low suspicion for superimposed PNA -C/w dexamethasone, baricitinib (Day 7), Vapotherm. Completed 5 days remdesivir. -Proning encourage, IS, bronchodilators as needed -Follow labs closely -Inflammatory markers improving -Pulmonary has evaluated, see note #COVID-19 -Management as above #Sinus bradycardia likely medication induced -stopped digoxin and BB and showing improvement -Echo done -Tele -Cardiology has seen #HFpEF with exacerbation -Neg fluid balance -Continue with IV furosemide 40 mg -Echo on file. -Daily weights, intake/output, 2 g sodium diet. If no bradycardia by 11/21/20, consider reinstituting low dose BB again #Pulmonary hypertension -Echo on file -C/w current treatment #morbid obesity, likely obesity hypoventilation syndrome -Noncompliant with Cpap therapy #Anxiety/depression -stable -Monitor -No HI/SI #DVT prophylaxis -On Lovenox Resolved: #Atrial fibrillation likely secondary to underlying respiratory infection DISPOSITION: Plan is home at discharge when medically improved. VS, I&O, 24H, Fishbone Vital Signs/I&O Vital Signs Date Time Temp Pulse Resp B/P (MAP) Pulse Ox O2 Delivery O2 Flow Rate FiO2 11/20/20 16:00 98.5 74 18 124/68 (86) 96 Nasal Cannula 7.0 11/20/20 15:50 45 I&O- Last 24 Hours up to 6 AM 11/20/20 06:00 Intake Total 2540 ml Output Total 3225 ml Balance -685 ml Laboratory Data 24H LABS Laboratory Tests 2 11/19/20 18:00: Bedside Glucose (Misc Panel) 243H 11/19/20 21:11: Bedside Glucose (Misc Panel) 251H 11/20/20 08:30: Bedside Glucose (Misc Panel) 232H 11/20/20 09:20: Nucleated Red Blood Cells % (auto) 0.0, Anion Gap 3L, Glomerular Filtration Rate > 60.0, Calcium Level 10.7H, Total Bilirubin 0.6, Aspartate Amino Transf (AST/SGOT) 8, Alanine Aminotransferase (ALT/SGPT) 31, Alkaline Phosphatase 91, Total Protein 6.4, Albumin 2.8L, Albumin/Globulin Ratio 0.8L 11/20/20 12:05: Bedside Glucose (Misc Panel) 255H 11/20/20 16:32: Bedside Glucose (Misc Panel) 279H CBC/BMP Laboratory Tests 11/20/20 09:20 Ivonne Worrell MD Nov 20, 2020 17:52
--- NOTE | 2020-11-20 19:07 | ECGEPIP ---
[facility] Test Date: 2020-11-19 Pat Name: JUAN C AUGUST Department: Room: [place] [address] Gender: Female Fisher Clam: selene : 1965 Requested By: Ivonne Carmona Order Number: [id number] Reading MD: Ady Glynn Measurements Intervals [place] Rate: 60 P: 61 VA: 188 QRS: 75 QRSD: 92 T: 53 QT: 412 QTc: 412 Interpretive Statements Sinus rhythm with premature supraventricular complexes previous tracing done 11-13-20 showed atrial flutter Electronically Signed on 11-20-2020 19:07:17 EDT by Ady Glynn
[2020-11-20 20:00] VITALS: BP 119/57
[2020-11-21] VITALS (7 sets, daily range): BP systolic 111–138; BP diastolic 56–72
[2020-11-21] MEDS: LEVALBUTEROL 1.25 MG/0.5 ML CONCENTRATE NEB INH SCH ×6 (03:26→23:28)
[2020-11-21 06:33] LABS: HEMATOCRIT 42.6 % (36.0-47.0); HEMOGLOBIN 13.3 g/dl (12.0-15.5); MEAN CORPUSCULAR HEMOGLOBIN 27.4 pg (27.0-33.0); MEAN CORPUSCULAR HGB CONC 31.2 g/dl (32.0-36.5); MEAN CORPUSCULAR VOLUME 87.8 fl (80.0-96.0); PLATELET COUNT, AUTOMATED 188 10^3/uL (150-450); RED BLOOD COUNT 4.85 10^6/uL (4.00-5.40); WHITE BLOOD COUNT 6.2 10^3/uL (4.0-10.0)
[2020-11-21 06:52] LABS: ALBUMIN 2.7 GM/DL (3.2-5.2); ALT/SGPT 31 U/L (12-78); BILIRUBIN,TOTAL 0.5 MG/DL (0.2-1.0); BLOOD UREA NITROGEN 26 MG/DL (7-18); CALCIUM LEVEL 10.5 MG/DL (8.5-10.1); CARBON DIOXIDE LEVEL 28 MEQ/L (21-32); CHLORIDE LEVEL 102 MEQ/L (98-107); CREATININE FOR GFR 0.71 MG/DL (0.55-1.30); FERRITIN 987 NG/ML (8-252); GLOMERULAR FILTRATION RATE > 60.0 (>51); GLUCOSE, FASTING 217 MG/DL (70-100); POTASSIUM SERUM 4.6 MEQ/L (3.5-5.1); SODIUM LEVEL 136 MEQ/L (136-145); TOTAL PROTEIN 6.4 GM/DL (6.4-8.2)
[2020-11-21] MEDS: HumaLOG INSULIN (NovoLOG) PER UNIT SC SCH ×4 (07:57→21:00)
[2020-11-21] MEDS: ATORVASTATIN 20 MG TAB PO SCH (08:55)
[2020-11-21] MEDS: BARICITINIB 2MG TABLET (OLUMIANT) FOR EUA PO SCH (08:55)
[2020-11-21] MEDS: SERTRALINE 100 MG TAB PO SCH (08:56)
[2020-11-21] MEDS: busPIRone 5 MG TAB PO SCH ×3 (08:56→21:11)
[2020-11-21] MEDS: FUROSEMIDE 40MG/4ML VIAL (J1940) IV SCH (08:57)
[2020-11-21] MEDS: dexameTHASONE 4 MG/ML 1ML VIAL (J1100 PER 1MG) IV SCH ×2 (08:58→21:11)
[2020-11-21] MEDS: LEVEMIR (INSULIN DETEMIR) 1 UNITS/0.01ML SC SCH (08:58)
[2020-11-21] MEDS: MIRALAX *UNIT DOSE* 17GM PACKET PO SCH (08:59)
[2020-11-21] MEDS: ENOXAPARIN 40MG/0.4ML SYRINGE (J1650 PER 10MG) SC SCH (08:59)
[2020-11-21] MEDS: SENNA 8.6 MG TAB (SENOKOT) PO SCH (08:59)
--- NOTE | 2020-11-21 16:16 | IPNPDOC ---
Text Note Date of Service The patient was seen on 11/21/20. NOTE Subjective: -Stably on 4L NC. -Denies chest pain, fevers or chills. Objective: VS: Please see below General: Lying in bed, NAD Head/Neck/Throat: Trachea midline, mucous membranes moist, large diameter neck, cannula in place on 4L Eyes: Sclera anicteric, no erythema Thorax: lungs decreased bilaterally, no wheezes/rales/rhonchi Cardiovascular: RRR on my examination , no rubs/gallops/murmurs Abdomen: obese abd, bowel sounds present, soft/nontender/nondistended Musculoskeletal: Moving all extremities, no edema Skin: Warm, dry Neurologic: AAOx3, speech fluent and goal-directed, no focal deficits, grossly intact LABS: Reviewed A/P: #Acute hypoxic respiratory failure 2/2 to COVID-19 -HVNI Vapotherm --> NC today- improving daily. -Procal low, low suspicion for superimposed PNA -C/w dexamethasone, baricitinib (Day 7), Vapotherm. Completed 5 days remdesivir. -Proning encourage, IS, bronchodilators as needed -Follow labs closely -Inflammatory markers improving -Pulmonary has evaluated, see note #COVID-19 PNA -Management as above #Sinus bradycardia likely medication induced -stopped digoxin and BB and showing improvement -Echo done -Tele -Cardiology has seen #HFpEF with exacerbation -Neg fluid balance -Continue with IV furosemide 40 mg -Echo on file. -Daily weights, intake/output, 2 g sodium diet. If no bradycardia by 11/21/20, consider reinstituting low dose BB again #Pulmonary hypertension -Echo on file -C/w current treatment #morbid obesity, likely obesity hypoventilation syndrome -Noncompliant with Cpap therapy #Anxiety/depression -stable -Monitor -No HI/SI #DVT prophylaxis -On Lovenox Resolved: #Transient atrial fibrillation likely secondary to underlying respiratory infection DISPOSITION: Plan is home at discharge when medically improved. VS,[place]one, I+O VS, Fishbone, I+O Laboratory Tests 11/21/20 05:47 Vital Signs Date Time Temp Pulse Resp B/P (MAP) Pulse Ox O2 Delivery O2 Flow Rate FiO2 11/21/20 16:00 4.0 11/21/20 15:25 97 Nasal Cannula 11/21/20 12:00 97.3 64 18 126/60 (82) 11/20/20 15:50 45 I&O- Last 24 Hours up to 6 AM 11/21/20 06:00 Intake Total 960 ml Output Total 400 ml Balance 560 ml ANAND RODRIGUEZ MD Nov 21, 2020 16:16
[2020-11-22] VITALS: BP 131/59
[2020-11-22] MEDS: LEVALBUTEROL 1.25 MG/0.5 ML CONCENTRATE NEB INH SCH ×5 (03:09→20:49)
[2020-11-22 04:00] VITALS: BP 117/58
[2020-11-22] MEDS: HumaLOG INSULIN (NovoLOG) PER UNIT SC SCH ×4 (07:35→21:53)
[2020-11-22 07:59] VITALS: BP 128/60
[2020-11-22] MEDS: ENOXAPARIN 40MG/0.4ML SYRINGE (J1650 PER 10MG) SC SCH (08:38)
[2020-11-22] MEDS: FUROSEMIDE 40MG/4ML VIAL (J1940) IV SCH (08:38)
[2020-11-22] MEDS: ATORVASTATIN 20 MG TAB PO SCH (08:39)
[2020-11-22] MEDS: dexameTHASONE 4 MG/ML 1ML VIAL (J1100 PER 1MG) IV SCH ×2 (08:39→21:53)
[2020-11-22] MEDS: SERTRALINE 100 MG TAB PO SCH (08:39)
[2020-11-22] MEDS: busPIRone 5 MG TAB PO SCH ×3 (08:39→21:51)
[2020-11-22] MEDS: BARICITINIB 2MG TABLET (OLUMIANT) FOR EUA PO SCH (08:39)
[2020-11-22] MEDS: LEVEMIR (INSULIN DETEMIR) 1 UNITS/0.01ML SC SCH (08:40)
[2020-11-22] MEDS: MIRALAX *UNIT DOSE* 17GM PACKET PO SCH (08:40)
[2020-11-22] MEDS: SENNA 8.6 MG TAB (SENOKOT) PO SCH (08:41)
[2020-11-22 10:45] LABS: BLOOD UREA NITROGEN 26 MG/DL (7-18); CALCIUM LEVEL 11.2 MG/DL (8.5-10.1); CARBON DIOXIDE LEVEL 27 MEQ/L (21-32); CHLORIDE LEVEL 102 MEQ/L (98-107); CREATININE FOR GFR 0.72 MG/DL (0.55-1.30); GLOMERULAR FILTRATION RATE > 60.0 (>51); GLUCOSE, FASTING 169 MG/DL (70-100); POTASSIUM SERUM 4.7 MEQ/L (3.5-5.1); SODIUM LEVEL 137 MEQ/L (136-145)
[2020-11-22 11:48] VITALS: BP 116/56
[2020-11-22 12:09] LABS: HEMATOCRIT 45.8 % (36.0-47.0); HEMOGLOBIN 14.4 g/dl (12.0-15.5); MEAN CORPUSCULAR HEMOGLOBIN 27.8 pg (27.0-33.0); MEAN CORPUSCULAR HGB CONC 31.4 g/dl (32.0-36.5); MEAN CORPUSCULAR VOLUME 88.4 fl (80.0-96.0); PLATELET COUNT, AUTOMATED 167 10^3/uL (150-450); RED BLOOD COUNT 5.18 10^6/uL (4.00-5.40); WHITE BLOOD COUNT 7.9 10^3/uL (4.0-10.0)
--- NOTE | 2020-11-22 14:42 | IPNPDOC ---
Text Note Date of Service The patient was seen on 11/22/20. NOTE Subjective: -Now on 3L NC. -Denies chest pain, fevers or chills. Objective: VS: Please see below General: Lying in bed, NAD Head/Neck/Throat: Trachea midline, mucous membranes moist, large diameter neck, cannula in place on 4L Eyes: Sclera anicteric, no erythema Thorax: lungs decreased bilaterally, no wheezes/rales/rhonchi Cardiovascular: RRR on my examination , no rubs/gallops/murmurs Abdomen: obese abd, bowel sounds present, soft/nontender/nondistended Musculoskeletal: Moving all extremities, no edema Skin: Warm, dry Neurologic: AAOx3, speech fluent and goal-directed, no focal deficits, grossly intact LABS: Reviewed. With pending AM labs, have otherwise been stable. A/P: #Acute hypoxic respiratory failure 2/2 to COVID-19 -Now down to 3L NC -Procal low, low suspicion for superimposed PNA -C/w dexamethasone, baricitinib (Day 8), on nasal canula. Completed 5 days remdesivir. -Encourage proning and out of bed, IS, bronchodilators as needed -Daily CBC and BMP -Inflammatory markers improved #COVID-19 PNA -Management as above #Sinus bradycardia likely medication induced -stopped digoxin and BB and showing improvement -Echo done -Tele -Cardiology has seen #HFpEF with exacerbation -Neg fluid balance -Switch IV to PO furosemide 40 mg -Echo on file. -Daily weights, intake/output, 2 g sodium diet. If no bradycardia by 11/21/20, consider reinstituting low dose BB again #Pulmonary hypertension -Echo on file -C/w current treatment #morbid obesity, likely obesity hypoventilation syndrome -Noncompliant with Cpap therapy #Anxiety/depression -stable -Monitor -No HI/SI #DVT prophylaxis -On Lovenox Resolved: #Transient atrial fibrillation likely secondary to underlying respiratory infection DISPOSITION: Plan is home at discharge when medically improved. VS,Fishbone, I+O VS, Fishbone, I+O Vital Signs Date Time Temp Pulse Resp B/P (MAP) Pulse Ox O2 Delivery O2 Flow Rate FiO2 11/22/20 07:59 97.6 64 20 128/60 (82) 94 Nasal Cannula 3.0 11/20/20 15:50 45 I&O- Last 24 Hours up to 6 AM 11/22/20 06:00 Intake Total 1820 ml Output Total 600 ml Balance 1220 ml ANAND RODRIGUEZ MD Nov 22, 2020 09:30
[2020-11-22 22:00] VITALS: BP 116/55
[2020-11-23] MEDS: LEVALBUTEROL 1.25 MG/0.5 ML CONCENTRATE NEB INH SCH ×5 (00:50→15:30)
[2020-11-23 05:47] VITALS: BP 119/56
[2020-11-23 06:03] LABS: HEMATOCRIT 43.1 % (36.0-47.0); HEMOGLOBIN 13.3 g/dl (12.0-15.5); MEAN CORPUSCULAR HEMOGLOBIN 27.5 pg (27.0-33.0); MEAN CORPUSCULAR HGB CONC 30.9 g/dl (32.0-36.5); PLATELET COUNT, AUTOMATED 151 10^3/uL (150-450); RED BLOOD COUNT 4.84 10^6/uL (4.00-5.40); WHITE BLOOD COUNT 6.1 10^3/uL (4.0-10.0)
[2020-11-23 06:24] LABS: BLOOD UREA NITROGEN 29 MG/DL (7-18); CALCIUM LEVEL 10.4 MG/DL (8.5-10.1); CARBON DIOXIDE LEVEL 30 MEQ/L (21-32); CHLORIDE LEVEL 102 MEQ/L (98-107); CREATININE FOR GFR 0.75 MG/DL (0.55-1.30); GLOMERULAR FILTRATION RATE > 60.0 (>51); GLUCOSE, FASTING 253 MG/DL (70-100); POTASSIUM SERUM 4.6 MEQ/L (3.5-5.1); SODIUM LEVEL 136 MEQ/L (136-145)
[2020-11-23] MEDS: MIRALAX *UNIT DOSE* 17GM PACKET PO SCH (09:00)
[2020-11-23] MEDS: SENNA 8.6 MG TAB (SENOKOT) PO SCH (09:00)
[2020-11-23] MEDS ORDERED: PRED10TA2 PO (09:53)
[2020-11-23] MEDS ORDERED: PROT1TAB2 PO (09:53)
[2020-11-23] MEDS ORDERED: PROAAER10 INH (09:53)
[2020-11-23] MEDS: ENOXAPARIN 40MG/0.4ML SYRINGE (J1650 PER 10MG) SC SCH (10:10)
[2020-11-23] MEDS: dexameTHASONE 4 MG/ML 1ML VIAL (J1100 PER 1MG) IV SCH (10:11)
[2020-11-23] MEDS: BARICITINIB 2MG TABLET (OLUMIANT) FOR EUA PO SCH (10:12)
[2020-11-23] MEDS: ATORVASTATIN 20 MG TAB PO SCH (10:13)
[2020-11-23] MEDS: busPIRone 5 MG TAB PO SCH (10:13)
[2020-11-23] MEDS: SERTRALINE 100 MG TAB PO SCH (10:13)
[2020-11-23] MEDS: HumaLOG INSULIN (NovoLOG) PER UNIT SC SCH ×2 (10:14→13:56)
[2020-11-23] MEDS: LEVEMIR (INSULIN DETEMIR) 1 UNITS/0.01ML SC SCH (10:15)
--- NOTE | 2020-11-23 14:04 | DS.PDOC ---
Discharge Summary General Date of Admission Nov 12, 2020 at 23:03 Date of Discharge 11/23/2020 Attending Physician: ANAND RODRIGUEZ MD Discharge Summary PROCEDURES PERFORMED DURING STAY: None ADMITTING DIAGNOSES: Covid-19 PNA Acute hypoxemic respiratory failure DISCHARGE DIAGNOSES: Covid-19 PNA Acute hypoxemic respiratory failure Strongly suspected COPD Obesity class III Acute on chronic congestive heart failure, LVEF 60% with pulmonary hypertension Transient atrial fibrillation with a RVR COMPLICATIONS/CHIEF COMPLAINT: Acute Respiratory Failure With Hypoxia/Covid-19. HISTORY OF PRESENT ILLNESS: 55-year-old W with a past medical history of suspected COPD, congestive heart failure, pulmonary hypertension, obesity, who presented to the ER complaining of a 7-day history of generalized weakness and malaise shortness of breath cough and subjective fevers. HOSPITAL COURSE: She was diagnosed with COVID-19 infection in the ER. Found to be hypoxic to the 70s, placed on BiPAP at 50% FiO2 at which point her saturation improved to 94% and her tachypnea had improved. She was found to be tachycardic to approximately 180 bpm with a EKG showing atrial fibrillation with a RVR. Further due to significant edema and shortness of breath her BNP was elevated at 6624. She was given a dose of furosemide 40 mg IV. Patient be admitted to hospitalist service for management of acute hypoxic respiratory failure, covid- 19 infection and new onset afib with RVR. Dr. Jelani day from pulmonary critical care was consulted for BiPAP management. After discussion given the patient's improvement on BiPAP and relatively low oxygen requirement patient was transitioned to Vapotherm. She was treated with 5d of remdesevir, as well as baricitinib and dexamethasone. She also did receive IV diuretics for mild HFpEF exacerbation. Her hypoxemia eventually improved until she required 3L NC where she has remained over the last few days. She does desaturate on removal of oxy gen at rest and is worse with exertion and will now be discharged home with supplemental oxygen with close PCP follow up and a referral to pulmonology for further evaluation of potential COPD and ELIJAH. DISCHARGE MEDICATIONS: Please see below. ALLERGIES: Please see below. PHYSICAL EXAMINATION ON DISCHARGE: VITAL SIGNS: Please see below. General: Lying in bed, NAD Head/Neck/Throat: Trachea midline, mucous membranes moist, large diameter neck, cannula in place on 3L Eyes: Sclera anicteric, no erythema Thorax: lungs decreased bilaterally, no wheezes/rales/rhonchi Cardiovascular: RRR on my examination , no rubs/gallops/murmurs Abdomen: obese abd, bowel sounds present, soft/nontender/nondistended Musculoskeletal: Moving all extremities, no edema Skin: Warm, dry Neurologic: AAOx3, speech fluent and goal-directed, no focal deficits, grossly intact LABORATORY DATA: Please see below. IMAGING: CXR (11/12/20): IMPRESSION: Cardiomegaly with vascular congestion and interstitial and alveolar edema pattern. Question superimposed right lower lobe infiltrate. CTA Chest (11/12/20): IMPRESSION: 1. Bilateral semi-solid and solid pulmonary parenchymal infiltrates located predominantly in the mid and peripheral lung zone extending to the pleural surfaces. Findings consistent with multifocal viral pneumonitis (organizing type) and known Covid diagnosis. 2. Mediastinal lymphadenopathy measuring up to 3.5 cm in the retrocaval pretracheal area. Bilateral hilar lymphadenopathy. 3. There is no aortic dissection or aneurysm. 4. There is enlargement of the central pulmonary arteries, findings which can be associated with pulmonary arterial hypertension which should be correlated clinically. 5. Excessive streak artifact and contrast density within the pulmonary arteries limits the ability to exclude the presence of small peripheral pulmonary emboli. That said, there are no large or medium-sized vessel emboli visualized. 6. Cardiomegaly. 7. Small pericardial effusion. PROGNOSIS: Good ACTIVITY: As tolerated DIET: Consistent carb DISCHARGE PLAN: Home with supplemental O2, with pred taper, close PCP appt, and pulmonology referral DISPOSITION: Home DISCHARGE INSTRUCTIONS: Home with supplemental O2, with pred taper, close PCP appt, and pulmonology referral ITEMS TO FOLLOWUP ON ON OUTPATIENT: Hypoxemic respiratory failure COPD and ELIJAH evaluation Resolution of covid-19 PNA DISCHARGE CONDITION: Stable TIME SPENT ON DISCHARGE: 45 minutes. Vital Signs/I&Os Vital Signs Date Time Temp Pulse Resp B/P (MAP) Pulse Ox O2 Delivery O2 Flow Rate FiO2 11/23/20 07:30 Nasal Cannula 3.0 11/23/20 05:47 96.1 57 18 119/56 (77) 91 11/20/20 15:50 45 I&O- Last 24 Hours up to 6 AM 11/23/20 06:00 Intake Total 840 ml Output Total 0 ml Balance 840 ml Laboratory Data Labs 24H Laboratory Tests 2 11/22/20 09:58: Anion Gap 8, Glomerular Filtration Rate > 60.0, Calcium Level 11.2H 11/22/20 11:19: Bedside Glucose (Misc Panel) 176H 11/22/20 11:47: Nucleated Red Blood Cells % (auto) 0.0 11/22/20 16:35: Bedside Glucose (Misc Panel) 287H 11/22/20 19:47: Bedside Glucose (Misc Panel) 254H 11/23/20 05:18: Nucleated Red Blood Cells % (auto) 0.0, Anion Gap 4L, Glomerular Filtration Rate > 60.0, Calcium Level 10.4H CBC/BMP Laboratory Tests 11/22/20 09:58 11/22/20 11:47 11/23/20 05:18 FSBS Laboratory Tests Test 11/22/20 11:19 11/22/20 16:35 11/22/20 19:47 Range/Units Bedside Glucose (Misc Panel) 176 287 254 70-105 MG/DL Discharge Medications Scheduled Atorvastatin Calcium (Atorvastatin Calcium) 40 Mg Tablet, 40 MG PO DAILY, (Reported) Buspirone HCl (Buspirone HCl) 7.5 Mg Tablet, 7.5 MG PO TID, (Reported) Dulaglutide (Trulicity) 1.5 Mg/0.5 Ml Pen.injctr, 1.5 MG SC QWEEK, (Reported) FRIDAYS Ergocalciferol (Vitamin D2) (Vitamin D2) 50,000 Units Cap, 50,000 UNIT PO QWEEK, (Reported) Lisinopril (Lisinopril) 10 Mg Tablet, 10 MG PO DAILY, (Reported) Metformin HCl (Metformin HCl ER) 750 Mg Tab.er.24h, 750 MG PO DAILY, (Reported) Pantoprazole Sodium (Protonix) 40 Mg Tablet.dr, 1 TAB PO DAILY Prednisone (Prednisone) 10 Mg Tablet, 1 TAB PO ASDIRECTED 40mg daily for 3d, then 30mg daily for 3d, then 20mg daily for 3d, then 10mg daiy for 3d Sertraline Hcl (Zoloft) 100 Mg Tablet, 100 MG PO DAILY, (Reported) Scheduled PRN Albuterol Sulfate (Proair Hfa) 8.5 Gm Hfa.aer.ad, 2 PUFF INH Q4-6HP PRN for wheezing Miscellaneous Medications [Med Rec Comment] , (Reported) OBTAINED MED LIST FROM DAUGHTER AND PHARMACY, UNABLE TO VERIFY LAST DOSES Allergies Coded Allergies: ciprofloxacin (Verified Allergy, Unknown, 11/12/20) ANAND RODRIGUEZ MD Nov 23, 2020 09:36
== END 2020-11-23 16:34 | disposition home or self-care (01) | DRG 137 ==
LOC: EDBD 16:44 → M ED 16:44 → M ED INP 23:03 → ENRESERV 23:24 → M ICU 23:43 → M 4MAIN 11-15 04:28
PROVIDERS: ADMIT Family Medicine; ATTEND Internal Medicine
PROC: 3E0333Z Introduction of Anti-inflammatory into Peripheral Vein, Percutaneous Approach (ICD-10-PCS; 2020-11-12)
PROC: XW033E5 Introduction of Remdesivir Anti-infective into Peripheral Vein, Percutaneous Approach, New Technology Group 5 (ICD-10-PCS; principal; 2020-11-13)
DX: U07.1 COVID-19 (principal); J96.01 Acute respiratory failure with hypoxia; J12.82 Pneumonia due to coronavirus disease 2019; I50.33 Acute on chronic diastolic (congestive) heart failure; I27.20 Pulmonary hypertension, unspecified; I48.91 Unspecified atrial fibrillation; J44.9 Chronic obstructive pulmonary disease, unspecified; E66.2 Morbid (severe) obesity with alveolar hypoventilation; Z87.891 Personal history of nicotine dependence; Z79.84 Long term (current) use of oral hypoglycemic drugs; Z79.899 Other long term (current) drug therapy; Z88.1 Allergy status to other antibiotic agents; Z68.44 Body mass index [BMI] 60.0-69.9, adult; Z91.19 Patient's noncompliance with other medical treatment and regimen; F41.9 Anxiety disorder, unspecified; F32.9 Major depressive disorder, single episode, unspecified; R00.1 Bradycardia, unspecified

== ENCOUNTER → 2021-01-18 | Outpatient (CLI) | payer OTHER ==
[~2021-01-18] MED LIST changes: +ATOR40TA75 PO; +BUSP1TAB PO; +ERGO500029 PO; +LISI10TA22 PO; +MED REC COMMENT; +METF750T36 PO; +PRED10TA2 PO; +PROAAER10 INH; +PROT1TAB2 PO; +TRUL0.5I SC; +ZOLO100T PO
[2021-01-18 13:24] LABS: BASO # 0.1 10^3/uL (0.0-0.2); BASO % 0.6 % (0.0-1.0); EOS # 0.1 10^3/uL (0.0-0.5); EOS % 0.8 % (0.0-3.0); HEMATOCRIT 45.6 % (36.0-47.0); HEMOGLOBIN 14.1 g/dl (12.0-15.5); LYMPH # 1.4 10^3/uL (1.5-5.0); LYMPH % 15.9 % (24.0-44.0); MEAN CORPUSCULAR HEMOGLOBIN 28.8 pg (27.0-33.0); MEAN CORPUSCULAR HGB CONC 30.9 g/dl (32.0-36.5); MEAN CORPUSCULAR VOLUME 93.1 fl (80.0-96.0); MONO # 0.5 10^3/uL (0.0-0.8); MONO % 6.2 % (2.0-8.0); NEUTROPHILS # 6.6 10^3/uL (1.5-8.5); NEUTROPHILS % 75.6 % (36.0-66.0); PLATELET COUNT, AUTOMATED 179 10^3/uL (150-450); WHITE BLOOD COUNT 8.7 10^3/uL (4.0-10.0)
[2021-01-18 13:57] LABS: CREATININE, URINE 71.8 MG/DL; MAU/CREAT RATIO 456.8 MCG/MG (0.0-30.0)
[2021-01-18 14:18] LABS: ALBUMIN 3.6 GM/DL (3.2-5.2); ALT/SGPT 19 U/L (12-78); BILIRUBIN,TOTAL 0.5 MG/DL (0.2-1.0); BLOOD UREA NITROGEN 16 MG/DL (7-18); CALCIUM LEVEL 11.4 MG/DL (8.5-10.1); CARBON DIOXIDE LEVEL 26 MEQ/L (21-32); CHLORIDE LEVEL 105 MEQ/L (98-107); CHOLESTEROL LEVEL 146 MG/DL (<200); CHOLESTEROL RISK RATIO 4.562 (<5); CREATININE FOR GFR 0.79 MG/DL (0.55-1.30); GLOMERULAR FILTRATION RATE > 60.0 (>51); GLUCOSE, FASTING 139 MG/DL (70-100); HDL CHOLESTEROL 32 MG/DL (>40); LDL CHOLESTEROL 76 MG/DL (<100); NON-HDL-C 114 MG/DL; POTASSIUM SERUM 4.7 MEQ/L (3.5-5.1); SODIUM LEVEL 140 MEQ/L (136-145); TOTAL PROTEIN 7.2 GM/DL (6.4-8.2); TRIGLYCERIDES LEVEL 192 MG/DL (<150)
[2021-01-18 14:24] LABS: TOTAL 25(OH) VITAMIN D 41.6 NG/ML (30.0-100.0)
[2021-01-18 14:25] LABS: PTH INTACT 139.9 PG/ML (18.5-88.0)
== END ==
LOC: M PLALAB 11:09
PROVIDERS: ATTEND Nurse Practitioner Family
DX: E11.9 Type 2 diabetes mellitus without complications (principal); E78.5 Hyperlipidemia, unspecified; E55.9 Vitamin D deficiency, unspecified; I10 Essential (primary) hypertension

== ENCOUNTER → 2021-01-22 | Outpatient (REF) | payer OTHER ==
[2021-01-22 19:15] LABS: APPEARANCE, URINE CLOUDY (CLEAR); BACTERIA, URINE AUTO 3+ (NEGATIVE); BILIRUBIN, URINE AUTO NEGATIVE (NEGATIVE); BLOOD, URINE BLOOD 2+ (NEGATIVE); CALCIUM OXALATE CRYSTALS LARGE; COLOR, URINE YELLOW (YELLOW); GLUCOSE, URINE (UA) AUTO NEGATIVE (NEGATIVE); KETONE, URINE AUTO NEGATIVE (NEGATIVE); LEUKOCYTE ESTERASE, URINE AUTO 3+ (NEGATIVE); NITRITE, URINE AUTO NEGATIVE (NEGATIVE); PROTEIN, URINE AUTO 1+ mg/dL (NEGATIVE); RBC, URINE AUTO 34 /HPF (0-3); SQUAMOUS EPITHELIAL CELL UR AU 8 /HPF (0-6); TRANSITIONAL EPITHELIAL AUTO <1 /HPF; UROBILINOGEN, URINE AUTO 0.2 mg/dL (0.0-2.0); WBC, URINE AUTO 102 /HPF (0-3)
== END ==
LOC: M SFHCPLAZ 16:51
PROVIDERS: ATTEND Nurse Practitioner Family
DX: N39.0 Urinary tract infection, site not specified (principal)

== ENCOUNTER → 2021-03-19 | Outpatient (REF) | payer OTHER | LOC: M LAB REF 17:01 | PROVIDERS: ATTEND Internal Medicine Nephrology | DX: R31.29 Other microscopic hematuria (principal) ==

== ENCOUNTER → 2021-03-27 | Outpatient (CLI) | payer OTHER | LOC: M RAD 12:52 | PROVIDERS: ATTEND Internal Medicine Nephrology | DX: R31.29 Other microscopic hematuria (principal); N18.1 Chronic kidney disease, stage 1; R80.9 Proteinuria, unspecified ==

== ENCOUNTER 2021-05-10 18:57 | Inpatient (IN) | payer OTHER ==
[~2021-05-10] VITALS: Ht 170.2 cm; Wt 180.1 kg
[2021-05-10] MEDS ORDERED: ADENOSINE 6MG/2ML INJECTION (J0153) IV STA ×3 (19:04)
[2021-05-10] MEDS ORDERED: ADENOSINE 6MG/2ML INJECTION (J0153) As Ordered ONE (19:05)
[2021-05-10] MEDS ORDERED: NS 1,000 ML IV ONE (19:15)
[2021-05-10 19:22] LABS: BASO % 0.4 % (0.0-1.0); EOS # 0.1 10^3/uL (0.0-0.5); EOS % 0.6 % (0.0-3.0); HEMATOCRIT 48.2 % (36.0-47.0); HEMOGLOBIN 15.3 g/dl (12.0-15.5); LYMPH # 1.6 10^3/uL (1.5-5.0); LYMPH % 17.7 % (24.0-44.0); MEAN CORPUSCULAR HEMOGLOBIN 27.2 pg (27.0-33.0); MEAN CORPUSCULAR HGB CONC 31.7 g/dl (32.0-36.5); MEAN CORPUSCULAR VOLUME 85.8 fl (80.0-96.0); MONO # 0.5 10^3/uL (0.0-0.8); MONO % 5.8 % (2.0-8.0); NEUTROPHILS # 6.9 10^3/uL (1.5-8.5); NEUTROPHILS % 74.5 % (36.0-66.0); PLATELET COUNT, AUTOMATED 144 10^3/uL (150-450); RED BLOOD COUNT 5.62 10^6/uL (4.00-5.40); WHITE BLOOD COUNT 9.2 10^3/uL (4.0-10.0)
[2021-05-10] MEDS ORDERED: BACTDSTA PO (19:51)
[2021-05-10 19:56] LABS: ALBUMIN 3.6 GM/DL (3.2-5.2); ALT/SGPT 18 U/L (12-78); BILIRUBIN,DIRECT 0.1 MG/DL (0.0-0.2); BILIRUBIN,TOTAL 0.4 MG/DL (0.2-1.0); BLOOD UREA NITROGEN 17 MG/DL (7-18); CALCIUM LEVEL 11.1 MG/DL (8.5-10.1); CARBON DIOXIDE LEVEL 23 MEQ/L (21-32); CHLORIDE LEVEL 110 MEQ/L (98-107); CREATININE FOR GFR 0.99 MG/DL (0.55-1.30); FREE T4 1.37 NG/DL (0.76-1.46); GLOMERULAR FILTRATION RATE > 60.0 (>51); GLUCOSE, FASTING 184 MG/DL (70-100); LIPASE 79 U/L (73-393); NT-PRO BNP 177 PG/ML (<125); POTASSIUM SERUM 4.4 MEQ/L (3.5-5.1); SODIUM LEVEL 141 MEQ/L (136-145)
[2021-05-10] MEDS ORDERED: FUROSEMIDE 100MG/10ML VIAL (J1940) IV ONE (20:00)
[2021-05-10] MEDS ORDERED: cefTRIAXone SOD 1 GM in D5W MINI-BAG PLUS 50 ML IV ONE (20:30)
[2021-05-10] MEDS: HumaLOG INSULIN (NovoLOG) PER UNIT SC SCH (21:00)
[2021-05-10] MEDS ORDERED: HYDR50TA70 PO (21:13)
[2021-05-10] MEDS ORDERED: ERGO500029 PO (21:13)
[2021-05-10] MEDS ORDERED: ALBU8.5H INH (21:13)
[2021-05-10] MEDS ORDERED: HOME MED LIST COMPLETE! XX SCH (21:15)
[2021-05-10 21:45] LABS: RSV AMPLIFICATION NEGATIVE (NEGATIVE)
[2021-05-10] MEDS ORDERED: ALBUTEROL 90 MCG/ACT 8GM HFA INHALER INH PRN (23:00)
[2021-05-10] MEDS ORDERED: hydrOXYzine 50 MG TAB PO PRN (23:00)
[2021-05-10] MEDS ORDERED: GLUCOSE 4GM CHEW TABLET PO PRN (23:00)
[2021-05-10] MEDS ORDERED: DEXTROSE 50% 50 ML SYRINGE IV PRN (23:00)
[2021-05-10] MEDS ORDERED: GLUCAGON INJ 1MG VIAL SC PRN (23:00)
[2021-05-10] MEDS ORDERED: PILL CUTTER 1 EACH XX PRN (23:05)
[2021-05-10] MEDS: ENOXAPARIN 100MG/1ML SYRINGE (J1650 PER 10MG) SC SCH (23:21)
[2021-05-10] MEDS: METOPROLOL TART 25 MG TABLET PO SCH (23:21)
[2021-05-11] VITALS (15 sets, daily range): BP systolic 107–113; BP diastolic 57–61; O2SAT 86–97
[2021-05-11 05:39] LABS: HEMATOCRIT 45.8 % (36.0-47.0); HEMOGLOBIN 14.3 g/dl (12.0-15.5); MEAN CORPUSCULAR HEMOGLOBIN 27.2 pg (27.0-33.0); MEAN CORPUSCULAR HGB CONC 31.2 g/dl (32.0-36.5); MEAN CORPUSCULAR VOLUME 87.1 fl (80.0-96.0); PLATELET COUNT, AUTOMATED 157 10^3/uL (150-450); RED BLOOD COUNT 5.26 10^6/uL (4.00-5.40); WHITE BLOOD COUNT 9.9 10^3/uL (4.0-10.0)
[2021-05-11 06:02] LABS: BLOOD UREA NITROGEN 20 MG/DL (7-18); CALCIUM LEVEL 10.4 MG/DL (8.5-10.1); CARBON DIOXIDE LEVEL 25 MEQ/L (21-32); CHLORIDE LEVEL 107 MEQ/L (98-107); GLOMERULAR FILTRATION RATE > 60.0 (>51); GLUCOSE, FASTING 118 MG/DL (70-100); POTASSIUM SERUM 3.9 MEQ/L (3.5-5.1); SODIUM LEVEL 137 MEQ/L (136-145)
[2021-05-11] MEDS: ENOXAPARIN 100MG/1ML SYRINGE (J1650 PER 10MG) SC SCH ×2 (08:49→20:32)
[2021-05-11] MEDS: HumaLOG INSULIN (NovoLOG) PER UNIT SC SCH ×4 (08:49→20:21)
[2021-05-11] MEDS: METOPROLOL TART 25 MG TABLET PO SCH ×2 (08:50→20:33)
[2021-05-11] MEDS: busPIRone 5 MG TAB PO SCH ×3 (08:50→20:33)
[2021-05-11] MEDS: SERTRALINE 100 MG TAB PO SCH (08:50)
[2021-05-11] MEDS: ATORVASTATIN 20 MG TAB PO SCH (08:50)
[2021-05-11 10:22] LABS: PTH INTACT 182.2 PG/ML (18.5-88.0); TOTAL 25(OH) VITAMIN D 26.5 NG/ML (30.0-100.0)
[2021-05-11] MEDS: cefTRIAXone SOD 1 GM in D5W MINI-BAG PLUS 50 ML IV SCH (20:33)
[2021-05-12] VITALS (21 sets, daily range): BP systolic 95–129; BP diastolic 55–67; O2SAT 92–98
[2021-05-12 05:38] LABS: HEMATOCRIT 43.6 % (36.0-47.0); HEMOGLOBIN 13.5 g/dl (12.0-15.5); MEAN CORPUSCULAR HEMOGLOBIN 27.4 pg (27.0-33.0); MEAN CORPUSCULAR VOLUME 88.4 fl (80.0-96.0); PLATELET COUNT, AUTOMATED 132 10^3/uL (150-450); RED BLOOD COUNT 4.93 10^6/uL (4.00-5.40); WHITE BLOOD COUNT 7.4 10^3/uL (4.0-10.0)
[2021-05-12 05:58] LABS: BLOOD UREA NITROGEN 21 MG/DL (7-18); CALCIUM LEVEL 10.1 MG/DL (8.5-10.1); CARBON DIOXIDE LEVEL 27 MEQ/L (21-32); CHLORIDE LEVEL 109 MEQ/L (98-107); CREATININE FOR GFR 0.94 MG/DL (0.55-1.30); GLOMERULAR FILTRATION RATE > 60.0 (>51); GLUCOSE, FASTING 138 MG/DL (70-100); MAGNESIUM LEVEL 2.1 MG/DL (1.8-2.4); POTASSIUM SERUM 4.2 MEQ/L (3.5-5.1); SODIUM LEVEL 137 MEQ/L (136-145)
[2021-05-12] MEDS ORDERED: METO1TAB87 PO (09:10)
[2021-05-12] MEDS ORDERED: ELIQ5TAB PO (09:10)
[2021-05-12] MEDS: HumaLOG INSULIN (NovoLOG) PER UNIT SC SCH ×4 (09:34→20:14)
[2021-05-12] MEDS: ATORVASTATIN 20 MG TAB PO SCH (09:34)
[2021-05-12] MEDS: SERTRALINE 100 MG TAB PO SCH (09:35)
[2021-05-12] MEDS: busPIRone 5 MG TAB PO SCH ×3 (09:35→20:13)
[2021-05-12] MEDS: METOPROLOL TART 25 MG TABLET PO SCH ×2 (09:35→20:14)
[2021-05-12] MEDS ORDERED: FUROSEMIDE 20MG/2ML VIAL (J1940) IV ONE (13:00)
[2021-05-12] MEDS: cefTRIAXone SOD 1 GM in D5W MINI-BAG PLUS 50 ML IV SCH (20:13)
[2021-05-13] VITALS (20 sets, daily range): BP systolic 104–125; BP diastolic 55–62; O2SAT 89–95
[2021-05-13 05:34] LABS: HEMOGLOBIN 13.4 g/dl (12.0-15.5); MEAN CORPUSCULAR HEMOGLOBIN 27.5 pg (27.0-33.0); MEAN CORPUSCULAR HGB CONC 31.2 g/dl (32.0-36.5); MEAN CORPUSCULAR VOLUME 88.3 fl (80.0-96.0); PLATELET COUNT, AUTOMATED 132 10^3/uL (150-450); RED BLOOD COUNT 4.87 10^6/uL (4.00-5.40); WHITE BLOOD COUNT 7.6 10^3/uL (4.0-10.0)
[2021-05-13 05:55] LABS: BLOOD UREA NITROGEN 22 MG/DL (7-18); CALCIUM LEVEL 9.9 MG/DL (8.5-10.1); CARBON DIOXIDE LEVEL 27 MEQ/L (21-32); CHLORIDE LEVEL 106 MEQ/L (98-107); CREATININE FOR GFR 0.87 MG/DL (0.55-1.30); GLOMERULAR FILTRATION RATE > 60.0 (>51); GLUCOSE, FASTING 115 MG/DL (70-100); MAGNESIUM LEVEL 2.1 MG/DL (1.8-2.4); POTASSIUM SERUM 4.3 MEQ/L (3.5-5.1); SODIUM LEVEL 138 MEQ/L (136-145)
[2021-05-13] MEDS: HumaLOG INSULIN (NovoLOG) PER UNIT SC SCH ×4 (09:33→20:11)
[2021-05-13] MEDS: ATORVASTATIN 20 MG TAB PO SCH (09:37)
[2021-05-13] MEDS: METOPROLOL TART 25 MG TABLET PO SCH ×2 (09:38→20:23)
[2021-05-13] MEDS: busPIRone 5 MG TAB PO SCH ×3 (09:38→20:23)
[2021-05-13] MEDS: SERTRALINE 100 MG TAB PO SCH (09:39)
[2021-05-13 10:25] LABS: C REACTIVE PROTEIN QUANTITATIV 1.29 MG/DL (0.00-0.30)
[2021-05-13 10:56] LABS: ERYTHROCYTE SEDIMENTATION RATE 24 mm/hr (0-30)
[2021-05-13] MEDS: cefTRIAXone SOD 1 GM in D5W MINI-BAG PLUS 50 ML IV SCH (20:23)
[2021-05-14] VITALS: BP 105/53; O2SAT 96
[2021-05-14 04:00] VITALS: BP 106/54; O2SAT 92
[2021-05-14 05:51] LABS: HEMATOCRIT 41.7 % (36.0-47.0); HEMOGLOBIN 13.2 g/dl (12.0-15.5); MEAN CORPUSCULAR HEMOGLOBIN 27.7 pg (27.0-33.0); MEAN CORPUSCULAR HGB CONC 31.7 g/dl (32.0-36.5); MEAN CORPUSCULAR VOLUME 87.6 fl (80.0-96.0); PLATELET COUNT, AUTOMATED 129 10^3/uL (150-450); RED BLOOD COUNT 4.76 10^6/uL (4.00-5.40); WHITE BLOOD COUNT 7.2 10^3/uL (4.0-10.0)
[2021-05-14 06:14] LABS: BLOOD UREA NITROGEN 18 MG/DL (7-18); CALCIUM LEVEL 9.7 MG/DL (8.5-10.1); CARBON DIOXIDE LEVEL 28 MEQ/L (21-32); CHLORIDE LEVEL 109 MEQ/L (98-107); CREATININE FOR GFR 0.88 MG/DL (0.55-1.30); GLOMERULAR FILTRATION RATE > 60.0 (>51); GLUCOSE, FASTING 112 MG/DL (70-100); POTASSIUM SERUM 4.4 MEQ/L (3.5-5.1); SODIUM LEVEL 140 MEQ/L (136-145)
[2021-05-14 08:00] VITALS: O2SAT 91
[2021-05-14 08:04] VITALS: BP 130/63
[2021-05-14] MEDS ORDERED: LISI5TAB11 PO (08:41)
[2021-05-14] MEDS: ATORVASTATIN 20 MG TAB PO SCH (08:44)
[2021-05-14] MEDS: METOPROLOL TART 25 MG TABLET PO SCH (08:47)
[2021-05-14 08:48] VITALS: BP 130/63
[2021-05-14] MEDS: busPIRone 5 MG TAB PO SCH (08:49)
[2021-05-14] MEDS: HumaLOG INSULIN (NovoLOG) PER UNIT SC SCH (08:50)
[2021-05-14] MEDS: SERTRALINE 100 MG TAB PO SCH (08:51)
[2021-05-14] MEDS ORDERED: APIXABAN 5 MG TAB (ELIQUIS) PO ONE (09:00)
[2021-05-15 12:08] LABS: ANTINUCLEAR ANTIBODIES DIRECT Negative (Negative)
== END 2021-05-14 10:35 | disposition home or self-care (01) | DRG 201 ==
LOC: M ED 18:57 → EDBD 18:57 → M ED INP 21:57 → ENRESERV 05-11 02:06 → M PCU 05-11 02:29
PROVIDERS: ADMIT Family Medicine; ATTEND Internal Medicine
DX: I48.91 Unspecified atrial fibrillation (principal); J96.01 Acute respiratory failure with hypoxia; I31.3 Pericardial effusion (noninflammatory); I11.0 Hypertensive heart disease with heart failure; Z68.41 Body mass index [BMI] 40.0-44.9, adult; E66.2 Morbid (severe) obesity with alveolar hypoventilation; I50.32 Chronic diastolic (congestive) heart failure; E78.5 Hyperlipidemia, unspecified; F41.9 Anxiety disorder, unspecified; F32.9 Major depressive disorder, single episode, unspecified; N39.0 Urinary tract infection, site not specified; R73.03 Prediabetes; E21.3 Hyperparathyroidism, unspecified; B96.20 Unspecified Escherichia coli [E. coli] as the cause of diseases classified elsewhere; J44.9 Chronic obstructive pulmonary disease, unspecified; Z86.16 Personal history of COVID-19; Z87.891 Personal history of nicotine dependence; Z79.01 Long term (current) use of anticoagulants; Z79.84 Long term (current) use of oral hypoglycemic drugs; Z79.899 Other long term (current) drug therapy; Z88.1 Allergy status to other antibiotic agents

== ENCOUNTER → 2021-07-10 | Outpatient (REF) | payer OTHER ==
[~2021-07-10] MED LIST changes: +ALBU8.5H INH; +BACTDSTA PO; +ELIQ5TAB PO; +LISI5TAB11 PO; +METO1TAB87 PO
[2021-07-10 22:14] LABS: APPEARANCE, URINE HAZY (CLEAR); BACTERIA, URINE AUTO 1+ (NEGATIVE); BILIRUBIN, URINE AUTO NEGATIVE (NEGATIVE); BLOOD, URINE BLOOD 3+ (NEGATIVE); COLOR, URINE YELLOW (YELLOW); GLUCOSE, URINE (UA) AUTO NEGATIVE (NEGATIVE); KETONE, URINE AUTO NEGATIVE (NEGATIVE); LEUKOCYTE ESTERASE, URINE AUTO 1+ (NEGATIVE); NITRITE, URINE AUTO NEGATIVE (NEGATIVE); PROTEIN, URINE AUTO 1+ mg/dL (NEGATIVE); RBC, URINE AUTO TNTC /HPF (0-3); SQUAMOUS EPITHELIAL CELL UR AU 0 /HPF (0-6); UROBILINOGEN, URINE AUTO 0.2 mg/dL (0.0-2.0); WBC, URINE AUTO 13 /HPF (0-3)
== END ==
LOC: M LAB REF 21:30
PROVIDERS: ATTEND Physician Assistant Medical
DX: N39.0 Urinary tract infection, site not specified (principal)

== ENCOUNTER → 2021-07-24 | Outpatient (CLI) | payer OTHER ==
[2021-07-24 15:49] LABS: BASO # 0.1 10^3/uL (0.0-0.2); BASO % 0.7 % (0.0-1.0); EOS # 0.1 10^3/uL (0.0-0.5); HEMATOCRIT 42.8 % (36.0-47.0); HEMOGLOBIN 13.2 g/dl (12.0-15.5); LYMPH # 1.1 10^3/uL (1.5-5.0); LYMPH % 14.1 % (24.0-44.0); MEAN CORPUSCULAR HEMOGLOBIN 26.7 pg (27.0-33.0); MEAN CORPUSCULAR HGB CONC 30.8 g/dl (32.0-36.5); MEAN CORPUSCULAR VOLUME 86.6 fl (80.0-96.0); MONO # 0.4 10^3/uL (0.0-0.8); MONO % 5.5 % (2.0-8.0); NEUTROPHILS % 77.9 % (36.0-66.0); PLATELET COUNT, AUTOMATED 108 10^3/uL (150-450); RED BLOOD COUNT 4.94 10^6/uL (4.00-5.40); WHITE BLOOD COUNT 7.6 10^3/uL (4.0-10.0)
[2021-07-24 16:02] LABS: INR 1.02; PROTHROMBIN TIME 13.8 SECONDS (12.7-14.5)
[2021-07-24 16:17] LABS: ALBUMIN 3.3 GM/DL (3.2-5.2); ALT/SGPT 14 U/L (12-78); BILIRUBIN,TOTAL 0.3 MG/DL (0.2-1.0); BLOOD UREA NITROGEN 19 MG/DL (7-18); CALCIUM LEVEL 10.5 MG/DL (8.5-10.1); CARBON DIOXIDE LEVEL 26 MEQ/L (21-32); CHLORIDE LEVEL 109 MEQ/L (98-107); CHOLESTEROL LEVEL 129 MG/DL (<200); CHOLESTEROL RISK RATIO 3.685 (<5); CREATININE FOR GFR 0.86 MG/DL (0.55-1.30); GLOMERULAR FILTRATION RATE > 60.0 (>51); GLUCOSE, FASTING 139 MG/DL (70-100); HDL CHOLESTEROL 35 MG/DL (>40); LDL CHOLESTEROL 65 MG/DL (<100); NON-HDL-C 94 MG/DL; POTASSIUM SERUM 4.8 MEQ/L (3.5-5.1); SODIUM LEVEL 142 MEQ/L (136-145); TOTAL PROTEIN 6.9 GM/DL (6.4-8.2); TRIGLYCERIDES LEVEL 145 MG/DL (<150)
[2021-07-24 16:42] LABS: HEMOGLOBIN A1c 5.9 %
[2021-07-24 17:22] LABS: PTH INTACT 156.2 PG/ML (18.5-88.0); TOTAL 25(OH) VITAMIN D 23.2 NG/ML (30.0-100.0)
[2021-07-24 17:37] LABS: CREATININE, URINE 95.9 MG/DL; MAU/CREAT RATIO 155.3 MCG/MG (0.0-30.0)
== END ==
LOC: M PLALAB 11:56
PROVIDERS: ATTEND Nurse Practitioner Family
DX: E55.9 Vitamin D deficiency, unspecified (principal); I87.2 Venous insufficiency (chronic) (peripheral); R80.9 Proteinuria, unspecified; I10 Essential (primary) hypertension; E78.6 Lipoprotein deficiency; E11.9 Type 2 diabetes mellitus without complications

== ENCOUNTER 2021-09-01 22:17 | Inpatient (IN) | payer OTHER ==
[~2021-09-01] VITALS: Ht 170.2 cm; Wt 190.0 kg
[2021-09-01] MEDS: METOPROLOL 5 MG/5 ML VIAL IV SCH ×6 (10:24→23:31)
[2021-09-01] MEDS ORDERED: METOPROLOL 5 MG/5 ML VIAL As Ordered ONE (22:21)
[2021-09-01] MEDS ORDERED: ACETAMINOPHEN 500 MG TAB PO ONE (22:30)
[2021-09-01] MEDS ORDERED: NS 1,000 ML IV ONE ×2 (22:35)
[2021-09-01 22:37] LABS: BASO # 0.1 10^3/uL (0.0-0.2); BASO % 0.5 % (0.0-1.0); EOS # 0.1 10^3/uL (0.0-0.5); EOS % 0.6 % (0.0-3.0); HEMATOCRIT 39.6 % (36.0-47.0); HEMOGLOBIN 12.3 g/dl (12.0-15.5); LYMPH # 1.4 10^3/uL (1.5-5.0); LYMPH % 10.3 % (24.0-44.0); MEAN CORPUSCULAR HEMOGLOBIN 26.4 pg (27.0-33.0); MEAN CORPUSCULAR HGB CONC 31.1 g/dl (32.0-36.5); MONO # 1.3 10^3/uL (0.0-0.8); MONO % 9.2 % (2.0-8.0); NEUTROPHILS # 10.8 10^3/uL (1.5-8.5); NEUTROPHILS % 78.7 % (36.0-66.0); PLATELET COUNT, AUTOMATED 198 10^3/uL (150-450); RED BLOOD COUNT 4.66 10^6/uL (4.00-5.40); WHITE BLOOD COUNT 13.7 10^3/uL (4.0-10.0)
[2021-09-01] MEDS ORDERED: CINA30TA4 PO (22:44)
[2021-09-01 22:47] LABS: INR 1.14
[2021-09-01 22:55] LABS: HCG, SERUM QUALITATIVE NEGATIVE (NEGATIVE)
[2021-09-01] MEDS ORDERED: DIGOXIN INJ 0.5 MG/2 ML AMP (J1160) IV STA (22:58)
[2021-09-01] MEDS ORDERED: atenoloL 50 MG TAB PO ONE (23:00)
[2021-09-01] MEDS ORDERED: DIGOXIN INJ 0.5 MG/2 ML AMP (J1160) As Ordered ONE (23:01)
[2021-09-01 23:04] LABS: CK-MB VALUE MASS < 1.0 NG/ML (<3.6); CPK CREATINE PHOSPHOKINASE 30 U/L (26-192); MB/CK RELATIVE INDEX 3.33 (< OR =4)
[2021-09-01 23:08] LABS: ALT/SGPT 22 U/L (12-78); BILIRUBIN,DIRECT 0.1 MG/DL (0.0-0.2); BILIRUBIN,TOTAL 0.4 MG/DL (0.2-1.0); BLOOD UREA NITROGEN 19 MG/DL (7-18); CARBON DIOXIDE LEVEL 20 MEQ/L (21-32); CHLORIDE LEVEL 105 MEQ/L (98-107); GLOMERULAR FILTRATION RATE 49.8 (>51); GLUCOSE, FASTING 276 MG/DL (70-100); LIPASE 95 U/L (73-393); NT-PRO BNP 187 PG/ML (<125); POTASSIUM SERUM 4.5 MEQ/L (3.5-5.1); SODIUM LEVEL 135 MEQ/L (136-145); TOTAL PROTEIN 6.8 GM/DL (6.4-8.2)
[2021-09-02] MEDS ORDERED: cefTRIAXone SOD 2 GM in D5W MINI-BAG PLUS 50 ML IV ONE (01:25)
[2021-09-02] MEDS ORDERED: METO25TA4 PO (02:04)
[2021-09-02] MEDS ORDERED: AZO1CAP PO (02:04)
[2021-09-02] MEDS ORDERED: LISI10TA22 PO (02:04)
[2021-09-02] MEDS ORDERED: ELIQ5TAB PO (02:04)
[2021-09-02] MEDS ORDERED: DULA3PEN INJ (02:04)
[2021-09-02] MEDS ORDERED: HOME MED LIST COMPLETE! XX SCH (02:10)
[2021-09-02] MEDS ORDERED: ACETAMINOPHEN TAB 650MG DOSE (2X325MG) PO PRN (02:40)
[2021-09-02] MEDS ORDERED: MOM 30ML SUSPENSION UDC PO PRN (02:40)
[2021-09-02] MEDS ORDERED: MAALOX 30 ML SUSP *UDC PO PRN (02:40)
[2021-09-02 04:00] VITALS: BP 140/65
[2021-09-02] MEDS ORDERED: PILL CUTTER 1 EACH XX PRN (04:00)
[2021-09-02 05:44] LABS: ALBUMIN 2.7 GM/DL (3.2-5.2); BILIRUBIN,TOTAL 0.3 MG/DL (0.2-1.0); CALCIUM LEVEL 9.6 MG/DL (8.5-10.1); CREATININE FOR GFR 1.06 MG/DL (0.55-1.30); GLOMERULAR FILTRATION RATE 57.5 (>51); MAGNESIUM LEVEL 1.6 MG/DL (1.8-2.4); POTASSIUM SERUM 4.4 MEQ/L (3.5-5.1)
[2021-09-02 06:23] LABS: BASO % 0.7 % (0.0-1.0); EOS % 0.5 % (0.0-3.0); HEMATOCRIT 34.9 % (36.0-47.0); HEMOGLOBIN 10.7 g/dl (12.0-15.5); LYMPH # 0.8 10^3/uL (1.5-5.0); LYMPH % 13.1 % (24.0-44.0); MEAN CORPUSCULAR HEMOGLOBIN 26.4 pg (27.0-33.0); MEAN CORPUSCULAR HGB CONC 30.7 g/dl (32.0-36.5); MONO # 0.7 10^3/uL (0.0-0.8); MONO % 11.1 % (2.0-8.0); NEUTROPHILS # 4.4 10^3/uL (1.5-8.5); NEUTROPHILS % 73.6 % (36.0-66.0); PLATELET COUNT, AUTOMATED 112 10^3/uL (150-450); RED BLOOD COUNT 4.06 10^6/uL (4.00-5.40)
[2021-09-02] MEDS: DIGOXIN INJ 0.5 MG/2 ML AMP (J1160) IV SCH ×2 (06:57→11:02)
[2021-09-02 07:16] VITALS: BP 110/51
[2021-09-02] MEDS ORDERED: GLUCOSE 4GM CHEW TABLET PO PRN (09:25)
[2021-09-02] MEDS ORDERED: GLUCAGON INJ 1MG VIAL SC PRN (09:25)
[2021-09-02] MEDS ORDERED: ALBUTEROL SULFATE 2.5 MG/0.5 ML INH NEB SOLN NEB PRN (09:25)
[2021-09-02] MEDS ORDERED: DEXTROSE 50% 50 ML SYRINGE IV PRN (09:25)
[2021-09-02] MEDS: atenoloL 50 MG TAB PO SCH (09:43)
[2021-09-02] MEDS ORDERED: MAGNESIUM OXIDE 400MG TAB (MAG-OX) PO ONE (10:00)
[2021-09-02 10:30] LABS: HEMOGLOBIN A1c 5.8 %
[2021-09-02] MEDS: busPIRone 5 MG TAB PO SCH ×3 (11:01→20:32)
[2021-09-02 12:11] VITALS: BP 120/56
[2021-09-02] MEDS: ATORVASTATIN 20 MG TAB PO SCH (13:29)
[2021-09-02] MEDS: CINACALCET 30 MG TAB (SENSIPAR) PO SCH (13:29)
[2021-09-02] MEDS: INSULIN LISPRO (NovoLOG) PER UNIT SC SCH ×3 (13:29→20:41)
[2021-09-02] MEDS: SERTRALINE 100 MG TAB PO SCH (13:29)
[2021-09-02] MEDS: APIXABAN 5 MG TAB (ELIQUIS) PO SCH ×2 (13:29→20:32)
[2021-09-02] MEDS: TAMSULOSIN 0.4 MG CAP PO SCH (13:30)
[2021-09-02 16:12] VITALS: BP 114/53
[2021-09-02] MEDS ORDERED: MAG SULF 1GM/100ML (MAG RUN) 1 GM in IV 1 EA IV ONE (19:45)
[2021-09-02 20:00] VITALS: BP 111/53
[2021-09-02] MEDS: cefTRIAXone SOD 1 GM in D5W MINI-BAG PLUS 50 ML IV SCH (20:32)
[2021-09-03 00:08] VITALS: BP 115/55
[2021-09-03 06:46] LABS: HEMATOCRIT 34.7 % (36.0-47.0); HEMOGLOBIN 10.7 g/dl (12.0-15.5); MEAN CORPUSCULAR HEMOGLOBIN 26.8 pg (27.0-33.0); MEAN CORPUSCULAR HGB CONC 30.8 g/dl (32.0-36.5); MEAN CORPUSCULAR VOLUME 86.8 fl (80.0-96.0); PLATELET COUNT, AUTOMATED 126 10^3/uL (150-450); WHITE BLOOD COUNT 5.3 10^3/uL (4.0-10.0)
[2021-09-03 07:05] LABS: BLOOD UREA NITROGEN 14 MG/DL (7-18); CALCIUM LEVEL 9.9 MG/DL (8.5-10.1); CARBON DIOXIDE LEVEL 24 MEQ/L (21-32); CHLORIDE LEVEL 112 MEQ/L (98-107); CREATININE FOR GFR 0.82 MG/DL (0.55-1.30); GLOMERULAR FILTRATION RATE > 60.0 (>51); GLUCOSE, FASTING 141 MG/DL (70-100); MAGNESIUM LEVEL 1.9 MG/DL (1.8-2.4); PHOSPHORUS LEVEL 2.8 MG/DL (2.5-4.9); POTASSIUM SERUM 4.6 MEQ/L (3.5-5.1); SODIUM LEVEL 141 MEQ/L (136-145)
[2021-09-03 07:46] VITALS: BP 118/56
[2021-09-03] MEDS: INSULIN LISPRO (NovoLOG) PER UNIT SC SCH ×5 (08:20→22:04)
[2021-09-03] MEDS: TAMSULOSIN 0.4 MG CAP PO SCH (08:21)
[2021-09-03] MEDS: busPIRone 5 MG TAB PO SCH ×3 (08:21→22:04)
[2021-09-03] MEDS: atenoloL 50 MG TAB PO SCH (08:22)
[2021-09-03] MEDS: APIXABAN 5 MG TAB (ELIQUIS) PO SCH ×2 (08:22→22:04)
[2021-09-03] MEDS: DIGOXIN 0.25 MG TAB PO SCH (08:22)
[2021-09-03 11:32] LABS: TOTAL 25(OH) VITAMIN D 24.6 NG/ML (30.0-100.0)
[2021-09-03 11:36] LABS: PTH INTACT 167.1 PG/ML (18.5-88.0)
[2021-09-03 12:00] VITALS: BP 119/58
[2021-09-03] MEDS: CINACALCET 30 MG TAB (SENSIPAR) PO SCH (14:29)
[2021-09-03] MEDS: SERTRALINE 100 MG TAB PO SCH (14:29)
[2021-09-03] MEDS: ATORVASTATIN 20 MG TAB PO SCH (14:30)
[2021-09-03 16:00] VITALS: BP 138/65
[2021-09-03 20:00] VITALS: BP 105/49
[2021-09-03] MEDS: cefTRIAXone SOD 1 GM in D5W MINI-BAG PLUS 50 ML IV SCH (22:04)
[2021-09-04] VITALS: BP 108/52
[2021-09-04 04:00] VITALS: BP 94/54
[2021-09-04 05:35] LABS: HEMATOCRIT 37.1 % (36.0-47.0); HEMOGLOBIN 11.3 g/dl (12.0-15.5); MEAN CORPUSCULAR HEMOGLOBIN 26.8 pg (27.0-33.0); MEAN CORPUSCULAR HGB CONC 30.5 g/dl (32.0-36.5); MEAN CORPUSCULAR VOLUME 88.1 fl (80.0-96.0); PLATELET COUNT, AUTOMATED 140 10^3/uL (150-450); RED BLOOD COUNT 4.21 10^6/uL (4.00-5.40); WHITE BLOOD COUNT 5.6 10^3/uL (4.0-10.0)
[2021-09-04 06:18] LABS: BLOOD UREA NITROGEN 15 MG/DL (7-18); CHLORIDE LEVEL 107 MEQ/L (98-107); CREATININE FOR GFR 0.87 MG/DL (0.55-1.30); GLOMERULAR FILTRATION RATE > 60.0 (>51); GLUCOSE, FASTING 138 MG/DL (70-100); POTASSIUM SERUM 4.5 MEQ/L (3.5-5.1); SODIUM LEVEL 140 MEQ/L (136-145)
[2021-09-04 06:19] LABS: CALCIUM LEVEL 10.1 MG/DL (8.5-10.1); CARBON DIOXIDE LEVEL 27 mmol/L (20-29)
[2021-09-04] MEDS: INSULIN LISPRO (NovoLOG) PER UNIT SC SCH (07:30)
[2021-09-04 08:00] VITALS: BP 112/55
[2021-09-04] MEDS: TAMSULOSIN 0.4 MG CAP PO SCH (09:06)
[2021-09-04] MEDS: DIGOXIN 0.25 MG TAB PO SCH (09:07)
[2021-09-04] MEDS: busPIRone 5 MG TAB PO SCH (09:08)
[2021-09-04] MEDS: APIXABAN 5 MG TAB (ELIQUIS) PO SCH (09:08)
[2021-09-04 09:12] VITALS: BP 112/55
[2021-09-04] MEDS: atenoloL 50 MG TAB PO SCH (09:12)
[2021-09-04] MEDS ORDERED: FLOM0.4C39 PO (09:27)
[2021-09-04] MEDS ORDERED: ATEN50TA2 PO (09:27)
[2021-09-04] MEDS ORDERED: CEFD300C41 PO (09:27)
== END 2021-09-04 11:07 | disposition home or self-care (01) | DRG 720 ==
LOC: M ED 22:17 → M PCU 09-02 03:57
PROVIDERS: ADMIT Internal Medicine; ATTEND Internal Medicine
DX: A41.9 Sepsis, unspecified organism (principal); I11.0 Hypertensive heart disease with heart failure; I50.32 Chronic diastolic (congestive) heart failure; E88.01 Alpha-1-antitrypsin deficiency; E66.01 Morbid (severe) obesity due to excess calories; Z68.44 Body mass index [BMI] 60.0-69.9, adult; I48.91 Unspecified atrial fibrillation; N39.0 Urinary tract infection, site not specified; G47.33 Obstructive sleep apnea (adult) (pediatric); E78.5 Hyperlipidemia, unspecified; F41.9 Anxiety disorder, unspecified; F32.9 Major depressive disorder, single episode, unspecified; N13.30 Unspecified hydronephrosis; N20.0 Calculus of kidney; E21.3 Hyperparathyroidism, unspecified; J44.9 Chronic obstructive pulmonary disease, unspecified; R73.03 Prediabetes; R80.9 Proteinuria, unspecified; Z86.16 Personal history of COVID-19; Z87.891 Personal history of nicotine dependence; Z79.01 Long term (current) use of anticoagulants; Z79.84 Long term (current) use of oral hypoglycemic drugs; Z79.899 Other long term (current) drug therapy; Z88.1 Allergy status to other antibiotic agents

== ENCOUNTER → 2021-12-10 | Outpatient (CLI) | payer OTHER ==
[~2021-12-10] MED LIST changes: +ATEN50TA2 PO; +AZO1CAP PO; +CEFD300C41 PO; +CINA30TA4 PO; +DULA3PEN INJ; +FLOM0.4C39 PO; +METO25TA4 PO
== END ==
LOC: M PLAIMG 12:59
PROVIDERS: ATTEND Physician Assistant
DX: N20.0 Calculus of kidney (principal)

== ENCOUNTER → 2021-12-24 | Outpatient (REF) | payer OTHER ==
[2021-12-24 19:37] LABS: APPEARANCE, URINE MANUAL CLEAR (CLEAR); COLOR, URINE MANUAL LT YELLOW (YELLOW); PH,URINE MAN 6.5 UNITS (5.0 - 7.0)
[2021-12-24 19:38] LABS: BILIRUBIN, URINE MANUAL NEGATIVE (NEGATIVE); BLOOD URINE MANUAL POSITIVE (NEGATIVE); GLUCOSE, URINE (UA) MANUAL NEGATIVE (NEGATIVE); KETONE, URINE MANUAL NEGATIVE (NEGATIVE); LEUKOCYTE ESTERASE, URINE MAN POSITIVE (NEGATIVE); NITRITE, URINE MANUAL NEGATIVE (NEGATIVE); PROTEIN, URINE MANUAL NEGATIVE (NEGATIVE); SPECIFIC GRAVITY,URINE MANUAL 1.015 (1.002-1.035); UROBILINOGEN, URINE MANUAL NORMAL (NORMAL)
[2021-12-24 20:16] LABS: RBC, URINE 40-50 /hpf (0-3); SQUAMOUS EPITHELIAL CELL URINE SMALL AMOUNT /hpf (SMALL AMT); WBC, URINE 20-30 /hpf (0-3)
[2021-12-24 20:17] LABS: BACTERIA, URINE MOD AMOUNT; HYALINE CAST, URINE NONE SEEN /lpf (0-1)
== END ==
LOC: M SMT 17:49 → M LAB REF 17:49
PROVIDERS: ATTEND Physician Assistant
DX: R30.0 Dysuria (principal)

== ENCOUNTER → 2022-01-17 | Outpatient (CLI) | payer OTHER ==
[2022-01-17 11:45] LABS: BASO # 0.1 10^3/uL (0.0-0.2); BASO % 0.5 % (0.0-1.0); EOS # 0.1 10^3/uL (0.0-0.5); EOS % 1.2 % (0.0-3.0); HEMATOCRIT 43.6 % (36.0-47.0); HEMOGLOBIN 13.3 g/dl (12.0-15.5); LYMPH # 1.2 10^3/uL (1.5-5.0); LYMPH % 12.8 % (24.0-44.0); MEAN CORPUSCULAR HEMOGLOBIN 26.8 pg (27.0-33.0); MEAN CORPUSCULAR HGB CONC 30.5 g/dl (32.0-36.5); MEAN CORPUSCULAR VOLUME 87.9 fl (80.0-96.0); MONO # 0.6 10^3/uL (0.0-0.8); MONO % 6.5 % (2.0-8.0); NEUTROPHILS # 7.4 10^3/uL (1.5-8.5); NEUTROPHILS % 78.5 % (36.0-66.0); PLATELET COUNT, AUTOMATED 138 10^3/uL (150-450); RED BLOOD COUNT 4.96 10^6/uL (4.00-5.40); WHITE BLOOD COUNT 9.5 10^3/uL (4.0-10.0)
[2022-01-17 12:03] LABS: CREATININE, URINE 72.6 MG/DL
[2022-01-17 12:04] LABS: MAU/CREAT RATIO 283.7 MCG/MG (0.0-30.0)
[2022-01-17 12:11] LABS: ALBUMIN 3.2 G/DL (3.2-5.2); ALKALINE PHOSPHATASE 141 U/L (46-116); ALT/SGPT 10 U/L (7.0-40); AST/SGOT 7.99999 U/L (<34); BILIRUBIN,TOTAL 0.5 MG/DL (0.3-1.2); BLOOD UREA NITROGEN 20 MG/DL (9-23); CALCIUM LEVEL 9.5 MG/DL (8.5-10.1); CARBON DIOXIDE LEVEL 26 MMOL/L (20-31); CHLORIDE LEVEL 102 MMOL/L (98-107); CHOLESTEROL LEVEL 118 MG/DL (<200); CHOLESTEROL RISK RATIO 3.74 (<5); GLOMERULAR FILTRATION RATE > 60.0 (>51); GLUCOSE, FASTING 141 MG/DL (60-100); HDL CHOLESTEROL 31.5 MG/DL (>40); LDL CHOLESTEROL 48.1 MG/DL (<100); NON-HDL-C 87 MG/DL; POTASSIUM SERUM 4.6 MMOL/L (3.5-5.1); SODIUM LEVEL 137 MMOL/L (136-145); TOTAL PROTEIN 6.4 G/DL (5.7-8.2); TRIGLYCERIDES LEVEL 192 MG/DL (<150)
[2022-01-17 12:13] LABS: TOTAL 25(OH) VITAMIN D 21.4 NG/ML (20.0-100.0)
== END ==
LOC: M PLALAB 08:46
PROVIDERS: ATTEND Nurse Practitioner Family
DX: E11.9 Type 2 diabetes mellitus without complications (principal); E78.5 Hyperlipidemia, unspecified; E55.9 Vitamin D deficiency, unspecified; I10 Essential (primary) hypertension

== ENCOUNTER → 2022-04-02 | Outpatient (REF) | payer OTHER, MEDICAID ==
[2022-04-02 14:38] LABS: APPEARANCE, URINE CLOUDY (CLEAR); BACTERIA, URINE AUTO 1+ (NEGATIVE); BILIRUBIN, URINE AUTO NEGATIVE (NEGATIVE); BLOOD, URINE BLOOD 2+ (NEGATIVE); CALCIUM OXALATE CRYSTALS LARGE; COLOR, URINE YELLOW (YELLOW); GLUCOSE, URINE (UA) AUTO NEGATIVE (NEGATIVE); KETONE, URINE AUTO NEGATIVE (NEGATIVE); LEUKOCYTE ESTERASE, URINE AUTO 3+ (NEGATIVE); NITRITE, URINE AUTO NEGATIVE (NEGATIVE); PROTEIN, URINE AUTO 1+ mg/dL (NEGATIVE); RBC, URINE AUTO 33 /HPF (0-3); SPECIFIC GRAVITY URINE AUTO 1.016 (1.002-1.035); SQUAMOUS EPITHELIAL CELL UR AU 4 /HPF (0-6); UROBILINOGEN, URINE AUTO 0.2 mg/dL (0.0-2.0); WBC, URINE AUTO TNTC /HPF (0-3)
== END ==
LOC: M SMT 13:00
PROVIDERS: ATTEND Physician Assistant
DX: R30.0 Dysuria (principal)

== ENCOUNTER → 2022-06-17 | Outpatient (REF) | payer OTHER, MEDICAID ==
[2022-06-17 13:53] LABS: APPEARANCE, URINE CLOUDY (CLEAR); BACTERIA, URINE AUTO 2+ (NEGATIVE); BILIRUBIN, URINE AUTO NEGATIVE (NEGATIVE); BLOOD, URINE BLOOD 3+ (NEGATIVE); CALCIUM OXALATE CRYSTALS LARGE; COLOR, URINE YELLOW (YELLOW); GLUCOSE, URINE (UA) AUTO NEGATIVE (NEGATIVE); KETONE, URINE AUTO NEGATIVE (NEGATIVE); LEUKOCYTE ESTERASE, URINE AUTO 3+ (NEGATIVE); MUCUS, URINE SMALL (NEGATIVE); NITRITE, URINE AUTO NEGATIVE (NEGATIVE); PROTEIN, URINE AUTO 1+ mg/dL (NEGATIVE); RBC, URINE AUTO TNTC /HPF (0-3); SPECIFIC GRAVITY URINE AUTO 1.016 (1.002-1.035); SQUAMOUS EPITHELIAL CELL UR AU 9 /HPF (0-6); UROBILINOGEN, URINE AUTO 0.2 mg/dL (0.0-2.0); WBC, URINE AUTO TNTC /HPF (0-3)
== END ==
LOC: M SMT 12:43
PROVIDERS: ATTEND Physician Assistant
DX: R30.0 Dysuria (principal)

== ENCOUNTER → 2022-06-27 | Outpatient (CLI) | payer OTHER | LOC: M PLAIMG 15:10 | PROVIDERS: ATTEND Physician Assistant | DX: N20.0 Calculus of kidney (principal); M51.36 Other intervertebral disc degeneration, lumbar region ==

== ENCOUNTER → 2022-07-10 | Outpatient (REF) | payer OTHER ==
[2022-07-10 18:24] LABS: APPEARANCE, URINE CLEAR (CLEAR); BACTERIA, URINE AUTO NEGATIVE (NEGATIVE); BILIRUBIN, URINE AUTO NEGATIVE (NEGATIVE); BLOOD, URINE BLOOD 3+ (NEGATIVE); COLOR, URINE YELLOW (YELLOW); GLUCOSE, URINE (UA) AUTO 1+ mg/dL (NEGATIVE); KETONE, URINE AUTO NEGATIVE (NEGATIVE); LEUKOCYTE ESTERASE, URINE AUTO 1+ (NEGATIVE); MUCUS, URINE SMALL (NEGATIVE); NITRITE, URINE AUTO NEGATIVE (NEGATIVE); PROTEIN, URINE AUTO NEGATIVE (NEGATIVE); RBC, URINE AUTO TNTC /HPF (0-3); SPECIFIC GRAVITY URINE AUTO 1.014 (1.002-1.035); SQUAMOUS EPITHELIAL CELL UR AU 1 /HPF (0-6); UROBILINOGEN, URINE AUTO 0.2 mg/dL (0.0-2.0); WBC, URINE AUTO 10 /HPF (0-3)
== END ==
LOC: M SMT 17:04
PROVIDERS: ATTEND Physician Assistant
DX: N39.0 Urinary tract infection, site not specified (principal)

== ENCOUNTER → 2022-07-16 | Outpatient (CLI) | payer OTHER, MEDICAID ==
[2022-07-16 15:20] LABS: BASO # 0.1 10^3/uL (0.0-0.2); BASO % 0.8 % (0.0-1.0); EOS # 0.1 10^3/uL (0.0-0.5); EOS % 0.8 % (0.0-3.0); HEMATOCRIT 44.2 % (36.0-47.0); HEMOGLOBIN 13.6 g/dl (12.0-15.5); LYMPH # 1.2 10^3/uL (1.5-5.0); LYMPH % 14.7 % (24.0-44.0); MEAN CORPUSCULAR HEMOGLOBIN 27.1 pg (27.0-33.0); MEAN CORPUSCULAR HGB CONC 30.8 g/dl (32.0-36.5); MEAN CORPUSCULAR VOLUME 88.2 fl (80.0-96.0); MONO # 0.4 10^3/uL (0.0-0.8); MONO % 5.4 % (2.0-8.0); NEUTROPHILS % 77.1 % (36.0-66.0); PLATELET COUNT, AUTOMATED 147 10^3/uL (150-450); RED BLOOD COUNT 5.01 10^6/uL (4.00-5.40); WHITE BLOOD COUNT 7.8 10^3/uL (4.0-10.0)
[2022-07-16 15:46] LABS: CREATININE, URINE 110.2 MG/DL; MAU/CREAT RATIO 65.3 MCG/MG (0.0-30.0)
[2022-07-16 15:47] LABS: ALBUMIN 3.4 G/DL (3.2-5.2); ALKALINE PHOSPHATASE 134 U/L (46-116); ALT/SGPT < 9 U/L (7.0-40); AST/SGOT < 8 U/L (<34); BILIRUBIN,TOTAL 0.5 MG/DL (0.3-1.2); BLOOD UREA NITROGEN 14 MG/DL (9-23); CALCIUM LEVEL 9.3 MG/DL (8.5-10.1); CARBON DIOXIDE LEVEL 28 MMOL/L (20-31); CHLORIDE LEVEL 106 MMOL/L (98-107); CHOLESTEROL LEVEL 125 MG/DL (<200); CHOLESTEROL RISK RATIO 4.05 (<5); CREATININE FOR GFR 0.85 MG/DL (0.55-1.30); GLOMERULAR FILTRATION RATE > 60.0 (>51); GLUCOSE, FASTING 140 MG/DL (60-100); HDL CHOLESTEROL 30.8 MG/DL (>40); LDL CHOLESTEROL 58.8 MG/DL (<100); NON-HDL-C 94.2 MG/DL; POTASSIUM SERUM 5.1 MMOL/L (3.5-5.1); SODIUM LEVEL 141 MMOL/L (136-145); TOTAL PROTEIN 6.3 G/DL (5.7-8.2); TRIGLYCERIDES LEVEL 177 MG/DL (<150)
[2022-07-16 15:49] LABS: TOTAL 25(OH) VITAMIN D 15.2 NG/ML (20.0-100.0)
[2022-07-16 16:13] LABS: HEMOGLOBIN A1c 6.2 % (4.0-6.0)
== END ==
LOC: M PLALAB 10:26
PROVIDERS: ATTEND Nurse Practitioner Family
DX: E11.9 Type 2 diabetes mellitus without complications (principal); E55.9 Vitamin D deficiency, unspecified; E78.5 Hyperlipidemia, unspecified

== ENCOUNTER → 2023-01-01 | Outpatient (CLI) | payer OTHER ==
[~2023-01-01] MED LIST changes: -CEFD300C41 PO; +CEFD300C42 PO
== END ==
LOC: M PLAIMG 15:14
PROVIDERS: ATTEND Physician Assistant
DX: N20.0 Calculus of kidney (principal)

== ENCOUNTER → 2023-01-15 | Outpatient (CLI) | payer OTHER ==
[~2023-01-15] MED LIST changes: +CEFD1CAP9 PO; -CEFD300C42 PO
[2023-01-15 14:08] LABS: BASO # 0.1 10^3/uL (0.0-0.2); BASO % 0.6 % (0.0-1.0); EOS # 0.1 10^3/uL (0.0-0.5); EOS % 1.1 % (0.0-3.0); HEMATOCRIT 47.3 % (36.0-47.0); HEMOGLOBIN 14.3 g/dl (12.0-15.5); LYMPH # 1.4 10^3/uL (1.5-5.0); LYMPH % 16.2 % (24.0-44.0); MEAN CORPUSCULAR HEMOGLOBIN 26.5 pg (27.0-33.0); MEAN CORPUSCULAR HGB CONC 30.2 g/dl (32.0-36.5); MEAN CORPUSCULAR VOLUME 87.6 fl (80.0-96.0); MONO # 0.4 10^3/uL (0.0-0.8); MONO % 5.2 % (2.0-8.0); NEUTROPHILS # 6.3 10^3/uL (1.5-8.5); NEUTROPHILS % 76.3 % (36.0-66.0); PLATELET COUNT, AUTOMATED 168 10^3/uL (150-450); WHITE BLOOD COUNT 8.3 10^3/uL (4.0-10.0)
[2023-01-15 14:30] LABS: HEMOGLOBIN A1c 6.3 % (4.0-6.0)
[2023-01-15 14:31] LABS: ALBUMIN 3.4 G/DL (3.2-5.2); ALKALINE PHOSPHATASE 139 U/L (46-116); ALT/SGPT 16 U/L (7.0-40); AST/SGOT < 8 U/L (<34); BILIRUBIN,TOTAL 0.5 MG/DL (0.3-1.2); BLOOD UREA NITROGEN 22 MG/DL (9-23); CALCIUM LEVEL 9.4 MG/DL (8.5-10.1); CARBON DIOXIDE LEVEL 27 MMOL/L (20-31); CHLORIDE LEVEL 102 MMOL/L (98-107); CHOLESTEROL LEVEL 131 MG/DL (<200); CHOLESTEROL RISK RATIO 3.64 (<5); GLOMERULAR FILTRATION RATE > 60.0 (>51); GLUCOSE, FASTING 177 MG/DL (60-100); HDL CHOLESTEROL 35.9 MG/DL (>40); LDL CHOLESTEROL 67.5 MG/DL (<100); NON-HDL-C 95.1 MG/DL; POTASSIUM SERUM 4.9 MMOL/L (3.5-5.1); SODIUM LEVEL 139 MMOL/L (136-145); THYROID STIMULATING HORMONE 1.986 uIU/ML (0.55-4.78); TOTAL PROTEIN 6.5 G/DL (5.7-8.2); TRIGLYCERIDES LEVEL 138 MG/DL (<150)
[2023-01-15 14:40] LABS: CREATININE, URINE 98.5 MG/DL; MAU/CREAT RATIO 113.7 MCG/MG (0.0-30.0)
== END ==
LOC: M PLALAB 10:43
PROVIDERS: ATTEND Nurse Practitioner Family
DX: E11.9 Type 2 diabetes mellitus without complications (principal); E78.5 Hyperlipidemia, unspecified; I10 Essential (primary) hypertension

== ENCOUNTER → 2023-02-07 | Outpatient (REF) | payer OTHER, MEDICAID ==
[2023-02-07 16:25] LABS: TOTAL PROTEIN,RANDOM URINE 45.4 MG/DL (0.0-14.0)
[2023-02-07 16:30] LABS: CREATININE,RANDOM URINE 100.8 MG/DL
== END ==
LOC: M LAB REF 15:38
PROVIDERS: ATTEND Internal Medicine Nephrology
DX: R80.9 Proteinuria, unspecified (principal)

== ENCOUNTER → 2023-08-28 | Outpatient (CLI) | payer OTHER ==
[2023-08-28 12:57] LABS: BASO # 0.1 10^3/uL (0.0-0.2); BASO % 0.8 % (0.0-1.0); EOS # 0.1 10^3/uL (0.0-0.5); EOS % 0.8 % (0.0-3.0); HEMATOCRIT 44.2 % (36.0-47.0); HEMOGLOBIN 13.2 g/dl (12.0-15.5); LYMPH # 1.3 10^3/uL (1.5-5.0); MEAN CORPUSCULAR HEMOGLOBIN 25.3 pg (27.0-33.0); MEAN CORPUSCULAR HGB CONC 29.9 g/dl (32.0-36.5); MEAN CORPUSCULAR VOLUME 84.7 fl (80.0-96.0); MONO # 0.6 10^3/uL (0.0-0.8); MONO % 6.3 % (2.0-8.0); NEUTROPHILS # 6.8 10^3/uL (1.5-8.5); NEUTROPHILS % 76.5 % (36.0-66.0); PLATELET COUNT, AUTOMATED 161 10^3/uL (150-450); RED BLOOD COUNT 5.22 10^6/uL (4.00-5.40); WHITE BLOOD COUNT 8.9 10^3/uL (4.0-10.0)
[2023-08-28 13:04] LABS: ALBUMIN 3.2 G/DL (3.2-5.2); ALKALINE PHOSPHATASE 133 U/L (46-116); ALT/SGPT 10 U/L (7.0-40); AST/SGOT < 8 U/L (<34); BILIRUBIN,TOTAL 0.5 MG/DL (0.3-1.2); BLOOD UREA NITROGEN 20 MG/DL (9-23); CALCIUM LEVEL 9.4 MG/DL (8.5-10.1); CARBON DIOXIDE LEVEL 25 MMOL/L (20-31); CHLORIDE LEVEL 106 MMOL/L (98-107); CHOLESTEROL LEVEL 116 MG/DL (<200); CHOLESTEROL RISK RATIO 4.05 (<5); CREATININE FOR GFR 0.87 MG/DL (0.55-1.30); GLOMERULAR FILTRATION RATE > 60.0 (>51); GLUCOSE, FASTING 182 MG/DL (60-100); HDL CHOLESTEROL 28.6 MG/DL (>40); LDL CHOLESTEROL 56.8 MG/DL (<100); NON-HDL-C 87.4 MG/DL; POTASSIUM SERUM 4.6 MMOL/L (3.5-5.1); SODIUM LEVEL 138 MMOL/L (136-145); TOTAL PROTEIN 6.3 G/DL (5.7-8.2); TRIGLYCERIDES LEVEL 153 MG/DL (<150)
[2023-08-28 13:06] LABS: TOTAL 25(OH) VITAMIN D 15.4 NG/ML (20.0-100.0)
[2023-08-28 13:12] LABS: HEMOGLOBIN A1c 6.6 % (4.0-6.0)
[2023-08-28 13:15] LABS: MAU/CREAT RATIO 163.7 MCG/MG (0.0-30.0)
== END ==
LOC: M PLALAB 09:28
PROVIDERS: ATTEND Nurse Practitioner Family
DX: E55.9 Vitamin D deficiency, unspecified (principal); I48.91 Unspecified atrial fibrillation; E11.9 Type 2 diabetes mellitus without complications; E78.5 Hyperlipidemia, unspecified

== ENCOUNTER → 2023-08-29 | Outpatient (REF) | payer OTHER ==
[2023-08-29 17:42] LABS: APPEARANCE, URINE CLOUDY (CLEAR); BACTERIA, URINE AUTO 2+ (NEGATIVE); BILIRUBIN, URINE AUTO NEGATIVE (NEGATIVE); BLOOD, URINE BLOOD 2+ (NEGATIVE); COLOR, URINE YELLOW (YELLOW); GLUCOSE, URINE (UA) AUTO NEGATIVE (NEGATIVE); KETONE, URINE AUTO NEGATIVE (NEGATIVE); LEUKOCYTE ESTERASE, URINE AUTO 3+ (NEGATIVE); MUCUS, URINE SMALL (NEGATIVE); NITRITE, URINE AUTO NEGATIVE (NEGATIVE); PROTEIN, URINE AUTO 2+ mg/dL (NEGATIVE); RBC, URINE AUTO 18 /HPF (0-3); SPECIFIC GRAVITY URINE AUTO 1.016 (1.002-1.035); SQUAMOUS EPITHELIAL CELL UR AU 2 /HPF (0-6); UROBILINOGEN, URINE AUTO 0.2 mg/dL (0.0-2.0); WBC, URINE AUTO TNTC /HPF (0-3)
== END ==
LOC: M SMT 16:54
PROVIDERS: ATTEND Physician Assistant
DX: R30.0 Dysuria (principal)

== ENCOUNTER → 2023-09-12 | Outpatient (REF) | payer OTHER ==
[2023-09-12 21:23] LABS: APPEARANCE, URINE CLOUDY (CLEAR); BACTERIA, URINE AUTO 3+ (NEGATIVE); BILIRUBIN, URINE AUTO NEGATIVE (NEGATIVE); BLOOD, URINE BLOOD 2+ (NEGATIVE); COLOR, URINE YELLOW (YELLOW); GLUCOSE, URINE (UA) AUTO NEGATIVE (NEGATIVE); KETONE, URINE AUTO NEGATIVE (NEGATIVE); LEUKOCYTE ESTERASE, URINE AUTO 3+ (NEGATIVE); MUCUS, URINE SMALL (NEGATIVE); NITRITE, URINE AUTO NEGATIVE (NEGATIVE); PROTEIN, URINE AUTO 1+ mg/dL (NEGATIVE); RBC, URINE AUTO 68 /HPF (0-3); SPECIFIC GRAVITY URINE AUTO 1.011 (1.002-1.035); SQUAMOUS EPITHELIAL CELL UR AU 1 /HPF (0-6); UROBILINOGEN, URINE AUTO 0.2 mg/dL (0.0-2.0); WBC, URINE AUTO TNTC /HPF (0-3)
== END ==
LOC: M LAB REF 20:56
PROVIDERS: ATTEND Nurse Practitioner Family
DX: R39.9 Unspecified symptoms and signs involving the genitourinary system (principal)

== ENCOUNTER → 2024-01-29 | Outpatient (CLI) | payer OTHER ==
[2024-01-29 12:55] LABS: BASO # 0.1 10^3/uL (0.0-0.2); BASO % 0.6 % (0.0-1.0); EOS # 0.1 10^3/uL (0.0-0.5); EOS % 0.9 % (0.0-3.0); HEMATOCRIT 46.1 % (36.0-47.0); HEMOGLOBIN 13.6 g/dl (12.0-15.5); LYMPH # 1.4 10^3/uL (1.5-5.0); LYMPH % 17.7 % (24.0-44.0); MEAN CORPUSCULAR HEMOGLOBIN 24.7 pg (27.0-33.0); MEAN CORPUSCULAR HGB CONC 29.5 g/dl (32.0-36.5); MEAN CORPUSCULAR VOLUME 83.8 fl (80.0-96.0); MONO # 0.4 10^3/uL (0.0-0.8); MONO % 5.4 % (2.0-8.0); NEUTROPHILS % 74.5 % (36.0-66.0); PLATELET COUNT, AUTOMATED 152 10^3/uL (150-450)
[2024-01-29 13:15] LABS: CHOLESTEROL RISK RATIO 3.92 (<5); HDL CHOLESTEROL 34.9 MG/DL (>40); LDL CHOLESTEROL 70.1 MG/DL (<100); NON-HDL-C 102.1 MG/DL
== END ==
LOC: M PLALAB 09:27
PROVIDERS: ATTEND Nurse Practitioner Family
DX: I10 Essential (primary) hypertension (principal); E55.9 Vitamin D deficiency, unspecified; E78.5 Hyperlipidemia, unspecified

== ENCOUNTER → 2024-02-02 | Outpatient (REF) | payer OTHER ==
[2024-02-02 18:57] LABS: TOTAL PROTEIN,RANDOM URINE 29.9 MG/DL (0.0-14.0)
== END ==
LOC: M LAB REF 17:11
PROVIDERS: ATTEND Internal Medicine Nephrology
DX: R80.9 Proteinuria, unspecified (principal)

== ENCOUNTER 2024-08-22 07:03 | Emergency (ER) | payer OTHER ==
[~2024-08-22] VITALS: Ht 170.2 cm; Wt 198.4 kg
[~2024-08-22 07:03] MED LIST changes: +BACT800T5 PO; +D-MA500C2 PO; -FLOM0.4C39 PO; +TAMS-18 PO; +TIRZ12.5 SUBQ
[2024-08-22 07:28] LABS: BASO # 0.1 10^3/uL (0.0-0.2); BASO % 0.7 % (0.0-1.0); EOS # 0.1 10^3/uL (0.0-0.5); EOS % 1.1 % (0.0-3.0); LYMPH # 1.2 10^3/uL (1.5-5.0); LYMPH % 16.2 % (24.0-44.0); MONO # 0.4 10^3/uL (0.0-0.8); MONO % 5.3 % (2.0-8.0); NEUTROPHILS # 5.5 10^3/uL (1.5-8.5); NEUTROPHILS % 75.6 % (36.0-66.0); PLATELET COUNT, AUTOMATED 142 10^3/uL (150-450)
[2024-08-22] MEDS: METOPROLOL 5 MG/5 ML VIAL IV SCH (07:28)
[2024-08-22 07:46] LABS: INR 0.92
[2024-08-22 07:50] VITALS: BP 137/72
[2024-08-22 07:52] LABS: CK-MB VALUE MASS 1.1 NG/ML (<3.6)
[2024-08-22 07:55] LABS: ALT/SGPT < 9 U/L (7.0-40); AST/SGOT 10 U/L (<34); CALCIUM LEVEL 9.7 MG/DL (8.5-10.1); CARBON DIOXIDE LEVEL 21 MMOL/L (20-31); CHLORIDE LEVEL 101 MMOL/L (98-107); CREATININE FOR GFR 0.99 MG/DL (0.55-1.30); GLOMERULAR FILTRATION RATE 66.5 (>51); MAGNESIUM LEVEL 1.7 MG/DL (1.8-2.4); POTASSIUM SERUM 4.3 MMOL/L (3.5-5.1); SODIUM LEVEL 139 MMOL/L (136-145)
[2024-08-22 07:57] LABS: FREE T4 1.15 NG/DL (0.89-1.76)
[2024-08-22 08:14] LABS: CPK CREATINE PHOSPHOKINASE 39 U/L (34-145); MB/CK RELATIVE INDEX 2.82 (< OR =4)
[2024-08-22 09:02] LABS: CK-MB VALUE MASS < 1.0 NG/ML (<3.6)
[2024-08-22 09:04] LABS: CPK CREATINE PHOSPHOKINASE 27 U/L (34-145)
[2024-08-22] MEDS ORDERED: ISOVUE-370 76% 100 ML VIAL As Ordered ONE (09:24)
[2024-08-22] MEDS: MAG SULF 1GM/100ML (MAG RUN) 1 GM in IV 1 EA IV ONE (10:39)
[2024-08-22] MEDS: BACTRIM 160MG/800MG DS TAB PO ONE (11:19)
[2024-08-22 12:19] VITALS: BP 130/79; TEMP 98.5; O2SAT 93
== END 2024-08-22 12:30 | disposition home or self-care (01) ==
LOC: EDBD 07:03 → M ED 07:03
DX: N39.0 Urinary tract infection, site not specified (principal); I48.92 Unspecified atrial flutter; R00.2 Palpitations; I44.0 Atrioventricular block, first degree; I44.5 Left posterior fascicular block; I45.81 Long QT syndrome; I48.91 Unspecified atrial fibrillation; I25.119 Atherosclerotic heart disease of native coronary artery with unspecified angina pectoris; E78.5 Hyperlipidemia, unspecified; E11.9 Type 2 diabetes mellitus without complications; G47.33 Obstructive sleep apnea (adult) (pediatric); F41.9 Anxiety disorder, unspecified; F32.A Depression, unspecified; Z88.1 Allergy status to other antibiotic agents; Z79.01 Long term (current) use of anticoagulants; Z79.84 Long term (current) use of oral hypoglycemic drugs; Z79.899 Other long term (current) drug therapy
CPT/HCPCS: 71045; 71275; 80047; 80048; 80076; 82550; 82553; 83690; 83735; 83880; 84439; 84443; 84484; 85025; 85610; 85730; 93005; 93041; 94760; 96365; 96366; 99291; J0616; J3475; Q9967

== ENCOUNTER → 2024-09-30 | Outpatient (CLI) | payer OTHER | LOC: M PLAIMG 09:28 | PROVIDERS: ATTEND Physician Assistant | DX: N20.0 Calculus of kidney (principal) ==

== ENCOUNTER → 2024-09-30 | Outpatient (CLI) | payer OTHER ==
[2024-09-30 11:40] LABS: BASO # 0.1 10^3/uL (0.0-0.2); BASO % 0.5 % (0.0-1.0); EOS # 0.1 10^3/uL (0.0-0.5); EOS % 0.7 % (0.0-3.0); LYMPH # 1.3 10^3/uL (1.5-5.0); LYMPH % 13.6 % (24.0-44.0); MONO # 0.5 10^3/uL (0.0-0.8); MONO % 4.8 % (2.0-8.0); NEUTROPHILS # 7.5 10^3/uL (1.5-8.5); NEUTROPHILS % 79.0 % (36.0-66.0); PLATELET COUNT, AUTOMATED 180 10^3/uL (150-450)
[2024-09-30 12:05] LABS: FREE T4 1.29 NG/DL (0.89-1.76)
[2024-09-30 12:20] LABS: ALT/SGPT 11.0 U/L (7.0-40); AST/SGOT 12.0 U/L (<34); CALCIUM LEVEL 9.8 MG/DL (8.5-10.1); CARBON DIOXIDE LEVEL 26.0 MMOL/L (20-31); CHLORIDE LEVEL 103.0 MMOL/L (98-107); CHOLESTEROL LEVEL 132.0 MG/DL (<200); CHOLESTEROL RISK RATIO 3.91 (<5); CREATININE FOR GFR 0.95 MG/DL (0.55-1.30); GLOMERULAR FILTRATION RATE 69.9 (>51); LDL CHOLESTEROL 66.3 MG/DL (<100); NON-HDL-C 98.3 MG/DL; POTASSIUM SERUM 4.9 MMOL/L (3.5-5.1); SODIUM LEVEL 142.0 MMOL/L (136-145); TRIGLYCERIDES LEVEL 160.0 MG/DL (<150)
[2024-09-30 13:48] LABS: ESTIMATED AVERAGE GLUCOSE 151.0 MG/DL (60-110)
== END ==
LOC: M PLALAB 09:29
PROVIDERS: ATTEND Nurse Practitioner Family
DX: F41.1 Generalized anxiety disorder (principal); E11.9 Type 2 diabetes mellitus without complications; E78.5 Hyperlipidemia, unspecified